=== PATIENT | male | born 1995 | race Caucasian/White ===

== ENCOUNTER 2016-11-23 19:43 | Emergency (ER) | payer OTHER ==
[2016-11-23 20:06] VITALS: BP 126/75
[2016-11-23] MEDS ORDERED: NS 0.9% 1000 ML* 1,000 ML IV ONE (21:20)
[2016-11-23] MEDS ORDERED: Ketorolac INJ* 30 MG/ML 1 ML VIAL IV PUSH ONE (21:20)
[2016-11-23] MEDS ORDERED: diPHENhydraMINE IV* 50 MG/ML 1 ml VIAL (BENADRYL) IV ONE (21:20)
[2016-11-23] MEDS ORDERED: Ondansetron INJ* 2 MG/ML VIAL IV ONE (21:21)
[2016-11-23 22:04] LABS: Hematocrit 48 % (42-52); Hemoglobin 16.1 g/dl (14.0-18.0); Mean Corpuscular HGB Conc 34 g/dl (31-36); Mean Corpuscular Hemoglobin 29 pg (27-31); Mean Corpuscular Volume 86 fL (80-94); Mean Platelet Volume 9 um3 (7.4-10.4); Red Blood Count 5.59 10^6/ul (4.0-5.4); Red Cell Distribution Width 14 % (10.5-15); White Blood Count 9.4 10^3/ul (3.5-10.8)
[2016-11-23 22:23] LABS: Albumin 5.1 g/dL (3.2-5.2); BUN/Creatinine Ratio 6.4 (8-20); Calcium 10.1 mg/dL (8.6-10.3); EGFR African American 129.1 (>60); EGFR Non-African American 100.4 (>60); Globulin 2.8 g/dL (2-4); Potassium 3.8 mmol/L (3.5-5.0); Total Bilirubin 0.5 mg/dL (0.2-1.0); Total Protein 7.9 g/dL (6.4-8.9)
--- NOTE | 2016-11-23 23:35 | UC ---
Headache HPI - HPI Summary HPI Summary: SINCE 1800 HAS HAD WORSENING MIGRAIN HEADACHE WITH PHOTOPHOBIA, SOUND SENSITIVITY AND NAUSEA. THIS IS TYPICAL OF HIS MIGRAINES. TOOK IBUPROFEN PRIOR TO SEVERITY (AT 5:30PM) BUT IT HAS NOT HELPED. MIGRAINES LATELY ARE BECOMING MORE FREQUENT. HAS NOT SPOKEN TO PRIMARY CARE OR TO NEUROLOGIST (EVERETT) ABOUT MIGRAINE OR FREQUENCY. USED TO TAKE MEDICATION THAT WAS EFFECTIVE IN CONTROLLING MIGRAINES, BUT HAS BEEN YEARS SINCE ANY MEDICATION WAS PRESCRIBED AND MANAGED. - History Of Current Complaint Chief Complaint: EDHeadache Stated Complaint: HEAD PAIN Time Seen by Provider: 11/23/16 21:03 Hx Obtained From: Patient, Family/Hogshead Builder Onset/Duration: Gradual Onset, Lasting Hours, Still Present Onset Of Symptoms: Gradual Initially Headache Was: Moderate Currently Pain Is: Moderate Pain Intensity: 1 Pain Scale Used: 0-10 Numeric Timing: Constant Character: Dull, Typical Headache Location of Headache: Frontal, Occipital Aggravating Factor: Bright Lights Allevating Factors: Position Change Associated Signs And Symptoms: Positive: Nausea. Negative: Dizziness, Seizure, Vomiting, Sinus Pressure, Fever, Neck Pain, Neck Stiffness, Decreased LOC - Risk Factors SAH Risk Factors: Negative Meningitis Risk Factors: Negative SDH Risk Factors: Negative Temporal Arteritis Risk Factors: Negative - Allergies/Home Medications Allergies/Adverse Reactions: Allergies Allergy/AdvReac Type Severity Reaction Status Date / Time Penicillins Allergy Intermediate Rash Verified 09/30/15 10:47 Amoxicillin Allergy Unknown Unknown Verified 09/30/15 10:47 Reaction Details Oxcarbazepine AdvReac Severe SEIZURES Verified 09/30/15 10:47 [From Trileptal] PMH/Surg Hx/FS Hx/Imm Hx Endocrine History Of: Denies: Diabetes, Thyroid Disease Cardiovascular History Of: Denies: Cardiac Disorders, Hypertension Respiratory History Of: Reports: Asthma Denies: COPD GI/ History Of: Denies: Ulcer Neurological History Of: Reports: Migraine Psychological History Of: Reports: Anxiety, Depression - Surgical History Surgical History: Yes Surgery Procedure, Year, and Place: TONSILLECTOMY, TESTICLE SURGERY, WISDOM TEETH - Family History Known Family History: Positive: Cardiac Disease - Social History Occupation: Student Lives: With Family Alcohol Use: Rare Alcohol Amount: 3-4 BEERS/WK Substance Use Type: Marijuana Substance Use Comment - Amount & Last Used: OCCAS Smoking Status (MU): Heavy Every Day Tobacco Smoker Type: Cigarettes Amount Used/How Often: 4-5 CIGARETTES/DAY Length of Time of Smoking/Using Tobacco: 2YRS Have You Smoked in the Last Year: Yes Household Exposure Type: Cigarettes Cessation Counseling: Counseled 3+Min - 10 Min - Immunization History Most Recent Influenza Vaccination: FALL 2013 Most Recent Tetanus Shot: [facility] Most Recent Pneumonia Vaccination: NONE Review of Systems Constitutional: Negative Skin: Negative Eyes: Photophobia ENT: Negative Respiratory: Negative Cardiovascular: Negative Gastrointestinal: Negative Genitourinary: Negative Motor: Negative Neurovascular: Negative Musculoskeletal: Negative Neurological: Headache Psychological: Negative All Other Systems Reviewed And Are Negative: Yes Physical Exam Triage Information Reviewed: Yes Appearance: Well-Appearing, Well-Nourished, Pain Distress - MODERATE, Thin Vital Signs: Initial Vital Signs Temp 98.6 F 11/23/16 20:02 Pulse 87 11/23/16 20:02 Resp 18 11/23/16 20:02 BP 126/75 11/23/16 20:02 Pulse Ox 95 11/23/16 20:02 Vital Signs Reviewed: Yes Eye Exam: Normal Eyes: Positive: Conjunctiva Clear ENT Exam: Normal ENT: Positive: Normal ENT inspection, Hearing grossly normal, Pharynx normal, TMs normal Dental Exam: Normal Dental: Negative: Cervical Lymphadenopathy Neck exam: Normal Neck: Positive: Supple, Nontender, No Lymphadenopathy. Negative: Nuchal Rigidity, Tenderness @, Enlarged Nodes @ Respiratory Exam: Normal Respiratory: Positive: Chest non-tender, Lungs clear, Normal breath sounds, No respiratory distress, No accessory muscle use Cardiovascular Exam: Normal Cardiovascular: Positive: RRR, No Murmur, Pulses Normal, Brisk Capillary Refill Abdominal Exam: Normal Abdomen Description: Positive: Nontender, No Organomegaly Musculoskeletal Exam: Normal Musculoskeletal: Positive: Strength Intact, ROM Intact Neurological Exam: Normal Neurological: Positive: Alert, Muscle Tone Normal, Other: - CN 2-12 INTACT Psychological Exam: Normal Psychological: Positive: Normal Response To Family Skin Exam: Normal Re-Evaluation - Re-Evaluation Second Eval Re-Evaluation Time: 22:25 Change: Improved - SYMPTOM FREE AFTER THERAPY; PENDING REMAINING FLUIDS. Headache Course/Dx - Differential Dx/Diagnosis Differential Diagnosis/HQI/PQRI: CO2 Poisoning, Migraine, Sinus Headache, Tension Headache Provider Diagnoses: MIGRAINE. TOBACCO ABUSE Discharge - Discharge Plan Condition: Stable Disposition: HOME Prescriptions: Ketorolac TAB (NF) [Toradol TAB (NF)] 10 mg PO Q8HR #15 tab Patient Education Materials: Migraine Headache (ED) Referrals: Chente Aguilar MD [Medical Doctor] - Georgia Sam MD [Primary Care Provider] -
== END 2016-11-23 23:06 | disposition home or self-care (01) ==
LOC: ED 19:43
DX: G43.909 Migraine, unspecified, not intractable, without status migrainosus (principal); R51 Headache; H53.149 Visual discomfort, unspecified; R11.0 Nausea; Z88.0 Allergy status to penicillin; F17.210 Nicotine dependence, cigarettes, uncomplicated
CPT/HCPCS: 36415; 80053; 85025; 85610; 85730; 96374; 96375; 99282; J1200; J1885; J2405

== ENCOUNTER → 2017-04-04 18:59 | Emergency (ER) | payer OTHER ==
--- NOTE | 2017-04-04 20:49 | RAD ---
Indication: Head injury. CT of the brain was performed without IV contrast. Comparison is made with previous exam dated May 11, 2009. Ventricular structures are midline. No midline shift is noted. The extra-axial spaces are unremarkable. There is no evidence of intracranial mass or hemorrhage. No other high or low density lesions identified. Mastoid air cells and paranasal sinuses are clear. IMPRESSION: No intracranial mass or hemorrhage is noted.
[2017-04-04 20:55] LABS: Hematocrit 44 % (42-52); Mean Corpuscular HGB Conc 34 g/dl (31-36); Mean Corpuscular Hemoglobin 29 pg (27-31); Mean Corpuscular Volume 85 fL (80-94); Mean Platelet Volume 8 um3 (7.4-10.4); Red Blood Count 5.11 10^6/ul (4.0-5.4); Red Cell Distribution Width 13 % (10.5-15); White Blood Count 9.4 10^3/ul (3.5-10.8)
[2017-04-04 21:09] LABS: ALT 16 U/L (7-52); AST 24 U/L (13-39); Albumin 4.7 g/dL (3.2-5.2); Alkaline Phosphatase 71 U/L (34-104); Anion Gap 3 mmol/L (2-11); BUN/Creatinine Ratio 8.2 (8-20); Blood Urea Nitrogen 9 mg/dL (6-24); CO2 Carbon Dioxide 27 mmol/L (22-32); Calcium 9.8 mg/dL (8.6-10.3); Chloride 103 mmol/L (101-111); EGFR African American 107.6 (>60); EGFR Non-African American 83.7 (>60); Globulin 2.7 g/dL (2-4); Glucose 87 mg/dL (70-100); Potassium 3.9 mmol/L (3.5-5.0); Sodium 133 mmol/L (133-145); Total Protein 7.4 g/dL (6.4-8.9)
[2017-04-04 21:14] LABS: Urine Bilirubin Negative (Negative); Urine Glucose Negative (Negative); Urine Nitrite Negative (Negative)
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
[2017-04-04 21:27] LABS: Benzodiazepine Urine Screen None Detected (None Detect)
[2017-04-04 21:37] LABS: Acetaminophen < 15 mcg/mL; Alcohol < 10 mg/dL (<10); Salicylate < 2.50 mg/dL (<30)
[2017-04-04 21:47] LABS: TSH (Thyroid Stimulating Horm) 1.85 mcIU/mL (0.34-5.60)
[2017-04-04 21:56] VITALS: BP 128/68
== END | disposition home or self-care (01) ==
LOC: ED 18:59
DX: F44.5 Conversion disorder with seizures or convulsions (principal)
CPT/HCPCS: 36415; 70450; 80053; 80307; 80320; 80329; 81003; 84443; 85025; 99282; G0480

== ENCOUNTER 2017-04-22 17:18 | Inpatient (IN) | payer MEDICAID, OTHER ==
[2017-04-22 17:46] LABS: Hematocrit 45 % (42-52); Hemoglobin 14.8 g/dl (14.0-18.0); Mean Corpuscular HGB Conc 33 g/dl (31-36); Mean Corpuscular Hemoglobin 29 pg (27-31); Mean Corpuscular Volume 87 fL (80-94); Mean Platelet Volume 8 um3 (7.4-10.4); Red Blood Count 5.18 10^6/ul (4.0-5.4); Red Cell Distribution Width 14 % (10.5-15); White Blood Count 8.1 10^3/ul (3.5-10.8)
[2017-04-22 18:04] LABS: ALT 44 U/L (7-52); AST 90 U/L (13-39); Albumin 4.9 g/dL (3.2-5.2); Alkaline Phosphatase 54 U/L (34-104); Anion Gap 10 mmol/L (2-11); BUN/Creatinine Ratio 6.7 (8-20); Blood Urea Nitrogen 6 mg/dL (6-24); CO2 Carbon Dioxide 22 mmol/L (22-32); Calcium 9.7 mg/dL (8.6-10.3); Chloride 104 mmol/L (101-111); EGFR African American 135.7 (>60); EGFR Non-African American 105.5 (>60); Globulin 2.7 g/dL (2-4); Glucose 110 mg/dL (70-100); Potassium 3.9 mmol/L (3.5-5.0); Sodium 136 mmol/L (133-145); Total Protein 7.6 g/dL (6.4-8.9)
[2017-04-22 18:20] LABS: Urine Bilirubin Negative (Negative); Urine Glucose Negative (Negative); Urine Nitrite Negative (Negative)
[2017-04-22 18:28] LABS: TSH (Thyroid Stimulating Horm) 1.21 mcIU/mL (0.34-5.60)
[2017-04-22 18:32] LABS: Acetaminophen < 15 mcg/mL; Alcohol < 10 mg/dL (<10); Salicylate < 2.50 mg/dL (<30)
[2017-04-22 18:41] LABS: Benzodiazepine Urine Screen None Detected (None Detect)
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
[2017-04-22] MEDS ORDERED: Ibuprofen TAB* 600 MG PO ONE (21:23)
[2017-04-23] MEDS ORDERED: Nicotine GUM* 2 MG PO PRN (01:12)
[2017-04-23] MEDS ORDERED: Al Hydrox/Mg Hydrox/Simet LIQ* 30 ML UDC PO PRN (01:12)
[2017-04-23] MEDS ORDERED: Acetaminophen TAB* 325 MG PO PRN (01:12)
[2017-04-23] MEDS: Mouth Piece, Nicotine* 1 EACH CARTRIDGE INH ONE ×2 (07:55→10:45)
[2017-04-23] MEDS: Triamcinolone 0.025% OINT * 15 GM TUBE TOPICAL SCH ×2 (08:09→20:07)
[2017-04-23] MEDS: Vitamin THERAPEUTIC TAB PO SCH (08:10)
[2017-04-23] MEDS ORDERED: busPIRone TAB* 15 MG PO SCH (09:00)
[2017-04-23] MEDS ORDERED: Vitamin B Complex TAB PO SCH (09:00)
[2017-04-23] MEDS: Hydrocortisone 1% CREAM* 30 GM TUBE TOPICAL SCH ×2 (09:32→20:07)
[2017-04-23] MEDS ORDERED: Mouth Piece, Nicotine* 1 EACH CARTRIDGE ONE (10:45)
[2017-04-23] MEDS: Nicotine Inhaler* 10 MG AMP INH PRN ×3 (10:45→20:09)
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
[2017-04-23] MEDS: busPIRone TAB* 15 MG PO SCH (20:07)
[2017-04-23] MEDS: Vitamin B Complex TAB PO SCH (20:07)
[2017-04-23] MEDS: hydrOXYzine HCL TAB* 25 MG PO PRN (21:13)
[2017-04-24] MEDS: Vitamin B Complex TAB PO SCH ×2 (08:46→20:46)
[2017-04-24] MEDS: Hydrocortisone 1% CREAM* 30 GM TUBE TOPICAL SCH ×2 (08:47→20:48)
[2017-04-24] MEDS: Triamcinolone 0.025% OINT * 15 GM TUBE TOPICAL SCH ×2 (08:47→20:48)
[2017-04-24] MEDS: Vitamin THERAPEUTIC TAB PO SCH (08:47)
[2017-04-24] MEDS: busPIRone TAB* 15 MG PO SCH ×2 (08:47→20:46)
[2017-04-24] MEDS: Nicotine Inhaler* 10 MG AMP INH PRN ×4 (08:48→20:47)
[2017-04-24] MEDS: hydrOXYzine HCL TAB* 25 MG PO PRN (21:24)
[2017-04-25] MEDS: Vitamin THERAPEUTIC TAB PO SCH (08:17)
[2017-04-25] MEDS: busPIRone TAB* 15 MG PO SCH ×2 (08:17→21:12)
[2017-04-25] MEDS: Vitamin B Complex TAB PO SCH ×2 (08:17→21:12)
[2017-04-25] MEDS: Triamcinolone 0.025% OINT * 15 GM TUBE TOPICAL SCH ×2 (08:19→21:13)
[2017-04-25] MEDS: Hydrocortisone 1% CREAM* 30 GM TUBE TOPICAL SCH ×2 (08:19→21:13)
[2017-04-25] MEDS: Nicotine Inhaler* 10 MG AMP INH PRN ×4 (11:34→21:57)
--- NOTE | 2017-04-25 11:47 | PN ---
Subjective - Subjective Service Type: 26336 Hosp care 15 min low complexity Subjective: I reviewed H&P and notes since Wednesday afternoon. I am familiar with this pt from previous hospitalization. Staff notes indicate he has been socializing with peers. Pt found in the milieu, socializing with another pt. We briefly discussed events leading to hospitalization. Mood is "okay" and rates depression as 4-5/ 10 and anxiety as 5-6/10 (10 being the worst). Notes self-harming by head banging in bathroom on Wednesday after upsetting phone call. Reports reduced hypersomnia, but is vague withe details. Daytime energy remains low. Glad to be taking a break from methylphenidate. No changes in appetite, diet. Denies any physical complaints or medication side effects. Hasn't noticed any mood changes after recent med change. Reports having fleeting passive suicidal thoughts yesterday. Denies any suicidal thoughts today. Denies any self-harm since Wednesday. He expressed relief about being out of recent relationship. Objective - Appearance Appearance: Well Developed/Nourished, Other - multiple facial piercings Dysmorphic Features: No Grooming: Fairly Well Kept - Behavior Psychomotor Activities: Normal Exhibits Abnormal Movement: No - Attitude and Relatedness Attitude and Relatedness: Cooperative Eye Contact: Good - Speech Quality: Unpressured Latencies: Normal Quantity: Appropriate - Mood Patient's Decription of Mood: "Okay" - Affect Observed Affect: Fair Affect Consistent with: Dysphoria - blunted - Thought Process Patient's Thought Process: Coherent, Goal Directed Thought Content: No Passive Wish, No Suicidal Planning, No Homicidal Ideation, No Paranoid Ideation - Sensorium Experiencing Hallucinations: No, Sensorium is Clear - Level of Consciousness Level of Consciousness: Lethargic - mild Orientation: Yes Intact, Yes Orientated to Time, Yes Orientated to Place, Yes Orientated to Person - Impulse Control Impulse Control: Tenuous - Insight and Judgement Insight and Judgement: Fair Assessment - Assessment Merits Inpatient Hospitalization: For Stabilization, For Ongoing Evaluation, Consolidate Improvements, For Discharge Planning, Pending Safe DC Plan Inpatient DSM-IV Dx: Depression Unspecified Clinical Impression: 21yo male with a hx of depression, abuse, substance use, idiopathic hypersomnolence and past psychiatric hospitalization admitted after attempting suicide. Tolerating med changes. Plan - Plan Treatment Plan: Name: KAYLIN BARRERA Birthdate: 1995 [id number] - continue higher dose of buspirone. - continue hyrdoxyzine prn - continie vitamin supplementation - continue to hold stimulant Medications: Current Medications Acetaminophen (Tylenol Tab*) 650 mg PO Q4H PRN PRN Reason: PAIN or TEMP > 101 F Al Hydrox/Mg Hydrox/Simethicone (Maalox Plus*) 30 ml PO Q4H PRN PRN Reason: INDIGESTION Buspirone HCl (Buspar Tab *) 15 mg PO BID [facility] Last Admin: 04/25/17 08:17 Dose: 15 mg Cetirizine HCl (Zyrtec*) 10 mg PO DAILY PRN PRN Reason: ALLERGIES Hydrocortisone (Hytone Cream 1%*) 1 applic TOPICAL BID [facility] Last Admin: 04/25/17 08:19 Dose: Not Given Hydroxyzine HCl (Atarax Tab*) 25 mg PO Q6H PRN PRN Reason: ANXIETY Last Admin: 04/24/17 21:24 Dose: 25 mg Multivitamins (Theragran Tab*) 1 tab PO DAILY [facility] Last Admin: 04/25/17 08:17 Dose: 1 tab Nicotine (Nicotine Inhaler*) 10 mg INH Q2H PRN PRN Reason: CRAVING Last Admin: 04/25/17 11:34 Dose: 10 mg Nicotine Polacrilex (Nicotine Gum*) 2 mg PO Q2H PRN PRN Reason: CRAVING Triamcinolone Acetonide (Triamcinolone 0.025% Oint *) 1 applic TOPICAL BID [facility] Last Admin: 04/25/17 08:19 Dose: Not Given Vitamin B Complex/Vitamin E (Complex B-100*) 1 tab PO BID [facility] Last Admin: 04/25/17 08:17 Dose: 1 tab
[2017-04-25] MEDS: hydrOXYzine HCL TAB* 25 MG PO PRN (18:30)
[2017-04-25] MEDS: Cetirizine* 10 MG TAB PO PRN (23:05)
[2017-04-26] MEDS: Hydrocortisone 1% CREAM* 30 GM TUBE TOPICAL SCH ×2 (09:39→20:48)
[2017-04-26] MEDS: Vitamin THERAPEUTIC TAB PO SCH (09:39)
[2017-04-26] MEDS: Vitamin B Complex TAB PO SCH ×2 (09:39→16:59)
[2017-04-26] MEDS: Triamcinolone 0.025% OINT * 15 GM TUBE TOPICAL SCH ×3 (09:39→21:09)
[2017-04-26] MEDS: busPIRone TAB* 15 MG PO SCH ×2 (09:39→20:46)
[2017-04-26] MEDS: Nicotine Inhaler* 10 MG AMP INH PRN ×5 (12:12→23:40)
--- NOTE | 2017-04-26 14:02 | PN ---
[facility]: Group Therapy Note - Service Type Service Type: 30614 Group Psychotherapy - Cognitive Behavioral Group Therapy ( CBT):Patient was attentive and participatory in CBT programming this morning, and remained in good behavioral control. Patient expressed positive insights regarding relevant treatment interventions and goals.
[2017-04-26] MEDS: buPROPion TAB* 100 MG PO SCH (16:18)
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
[2017-04-26] MEDS ORDERED: buPROPion TAB* 100 MG PO SCH (21:00)
[2017-04-26] MEDS: Cetirizine* 10 MG TAB PO PRN (21:09)
[2017-04-26] MEDS: hydrOXYzine HCL TAB* 25 MG PO PRN (21:09)
[2017-04-27] MEDS: Cetirizine* 10 MG TAB PO PRN (08:32)
[2017-04-27] MEDS: Vitamin B Complex TAB PO SCH ×2 (08:32→17:17)
[2017-04-27] MEDS: Vitamin THERAPEUTIC TAB PO SCH (08:32)
[2017-04-27] MEDS: Nicotine Inhaler* 10 MG AMP INH PRN ×5 (08:32→21:00)
[2017-04-27] MEDS: busPIRone TAB* 15 MG PO SCH ×2 (08:32→20:59)
[2017-04-27] MEDS: buPROPion TAB* 100 MG PO SCH ×2 (08:33→15:43)
[2017-04-27] MEDS: Hydrocortisone 1% CREAM* 30 GM TUBE TOPICAL SCH ×2 (09:47→20:59)
[2017-04-27] MEDS: Triamcinolone 0.025% OINT * 15 GM TUBE TOPICAL SCH ×2 (09:47→21:00)
--- NOTE | 2017-04-27 13:31 | PN ---
Subjective - Subjective Service Type: 55986 Hosp care 15 min low complexity Subjective: Patient reports continued improvement in mood. He reports ongoing benefit from group and expresses motivation to use coping mechanisms he's learned once back home. He reports being home alone is a stress, especially at night. He reports no drop in mood yesterday, but reports the of his BF did call but he declined the call. He is more aware of the chaotic lifestyle of his friends and ex-GF. He reports insight that he needs to distance himself from them. He reports med compliance and no med s/e's. He reports increased sleep, but attributes it to his fluctuating Idiopathic Hypersomnolence dx. He denies SI/HI and AH/VH. Objective - Appearance Appearance: Thin Framed Dysmorphic Features: No Hygiene: Normal Grooming: Fairly Well Kept - Behavior Psychomotor Activities: Normal Exhibits Abnormal Movement: No - Attitude and Relatedness Attitude and Relatedness: Cooperative - Speech Quality: Unpressured Latencies: Normal Quantity: Appropriate - Mood Patient's Decription of Mood: "Fine" - Affect Observed Affect: Fair Affect Consistent with: Euthymia - Thought Process Patient's Thought Process: Coherent Thought Content: No Passive Wish, No Suicidal Planning, No Homicidal Ideation, No Paranoid Ideation - Sensorium Experiencing Hallucinations: No, Sensorium is Clear Type of Hallucinations: Visual: No, Auditory: No, Command: No - Level of Consciousness Level of Consciousness: Alert Orientation: Yes Intact, Yes Orientated to Time, Yes Orientated to Place, Yes Orientated to Person - Impulse Control Impulse Control: Intact - Insight and Judgement Insight and Judgement: Fair - Group Participation Particating in Group Activities: Yes - Medication Management Medication Management Adherence: Yes Assessment - Assessment Merits Inpatient Hospitalization: For Stabilization Inpatient DSM-IV Dx: 1. Unspecified depressive disorder. 2. Borderline PD. 3. ADHD. 4. Amphetamine use d/o. 5. Cannabis use d/o Clinical Impression: 21yo male patient with PPHx significant for Depression presents s/p suicide attempt by OD on 3-4 MH pills. He reports recent distress from the breakup of the 2 year relationship with his GF. He also has lost a good friend due to his GF. Patient reports good benefit from groups and reported he'd like to discuss the borderline personality as he identified with many of the behaviors. Patient has been med compliant and denies med s/e' s. He is amenable to a trial on bupropion due to his fears of his mood dropping associated with impulsive SI which happened the night of this admission. Plan - Plan Treatment Plan: Name: KAYLIN BARRERA Birthdate: 1995 [id number] 1. Continue admission to [facility] for safety and symptom mx. 2. Continue Buspar 15mg BID for anxiety and mood. 3. Continue Wellbutrin 150mg po BID(0800&1600) for depression. 4. Vistaril 25mg po q6hr for breakthrough anxiety. 5. Continue Vit B complex ta BID per patient report is his Tx for above mentioned genetic issue. 6. Patient to participate in milieu activities and groups. Continued Medication Management: Different Medication Medications: Current Medications Acetaminophen (Tylenol Tab*) 650 mg PO Q4H PRN PRN Reason: PAIN or TEMP > 101 F Al Hydrox/Mg Hydrox/Simethicone (Maalox Plus*) 30 ml PO Q4H PRN PRN Reason: INDIGESTION Bupropion HCl (Wellbutrin Tab*) 150 mg PO 0800,1600 [facility] Last Admin: 04/27/17 08:33 Dose: 150 mg Buspirone HCl (Buspar Tab *) 15 mg PO BID [facility] Last Admin: 04/27/17 08:32 Dose: 15 mg Cetirizine HCl (Zyrtec*) 10 mg PO DAILY PRN PRN Reason: ALLERGIES Last Admin: 04/27/17 08:32 Dose: 10 mg Hydrocortisone (Hytone Cream 1%*) 1 applic TOPICAL BID [facility] Last Admin: 04/27/17 09:47 Dose: Not Given Hydroxyzine HCl (Atarax Tab*) 25 mg PO Q6H PRN PRN Reason: ANXIETY Last Admin: 04/26/17 21:09 Dose: 25 mg Multivitamins (Theragran Tab*) 1 tab PO DAILY [facility] Last Admin: 04/27/17 08:32 Dose: 1 tab Nicotine (Nicotine Inhaler*) 10 mg INH Q2H PRN PRN Reason: CRAVING Last Admin: 04/27/17 12:48 Dose: 10 mg Nicotine Polacrilex (Nicotine Gum*) 2 mg PO Q2H PRN PRN Reason: CRAVING Triamcinolone Acetonide (Triamcinolone 0.025% Oint *) 1 applic TOPICAL BID [facility] Last Admin: 04/27/17 09:47 Dose: Not Given Vitamin B Complex/Vitamin E (Complex B-100*) 1 tab PO 0800,1700 [facility] Last Admin: 04/27/17 08:32 Dose: 1 tab - Discharge Plan Discharge Plan: Outpatient Follow Up Outpatient Program: [facility]
[2017-04-27] MEDS: hydrOXYzine HCL TAB* 25 MG PO PRN (22:56)
[2017-04-28 07:42] VITALS: BP 105/61
[2017-04-28] MEDS: buPROPion TAB* 100 MG PO SCH (09:05)
[2017-04-28] MEDS: busPIRone TAB* 15 MG PO SCH (09:06)
[2017-04-28] MEDS: Vitamin B Complex TAB PO SCH (09:06)
[2017-04-28] MEDS: Vitamin THERAPEUTIC TAB PO SCH (09:06)
[2017-04-28] MEDS: Nicotine Inhaler* 10 MG AMP INH PRN ×2 (09:07→11:15)
[2017-04-28] MEDS: Hydrocortisone 1% CREAM* 30 GM TUBE TOPICAL SCH (10:10)
[2017-04-28] MEDS: Triamcinolone 0.025% OINT * 15 GM TUBE TOPICAL SCH (10:10)
--- NOTE | 2017-04-28 10:20 | DS ---
Subjective - Subjective Service Types: 22035 [facility] Day Mgmt simple under 30 min Subjective: Patient is full in affect, smiling at times, reporting having a good experience this admission. He reports gaining insight on his personality and the personality of his ex-GF. He sees borderline traits in he and his GF. He reports gaining new coping skills and means to navigate how he relates to his friends. He reports no med s/e's and does feel benfit to his mood and energy level with the Wellbutrin BID dosing. Patient again denies SI/HI. He is future oriented, reporting he must go DSS to submit paperwork to ensure he will not lose section 8. Patient asked to present to his local ED if SI recurs. She was amenable and acknowledged understanding of community supports. Objective - Appearance Appearance: Well Developed/Nourished Dysmorphic Features: No Hygiene: Normal Grooming: Fairly Well Kept - Behavior Psychomotor Activities: Normal Exhibits Abnormal Movement: No - Attitude and Relatedness Attitude and Relatedness: Cooperative Eye Contact: Good - Speech Quality: Unpressured Latencies: Normal Quantity: Appropriate - Mood Patient's Decription of Mood: "Good" - Affect Observed Affect: Good Affect Consistent with: Euthymia - Thought Process Patient's Thought Process: Coherent Thought Content: No Passive Wish, No Suicidal Planning, No Homicidal Ideation, No Paranoid Ideation - Sensorium Experiencing Hallucinations: No, Sensorium is Clear Type of Hallucinations: Visual: No, Auditory: No, Command: No - Level of Consciousness Level of Consciousness: Alert Orientation: Yes Intact, Yes Orientated to Time, Yes Orientated to Place, Yes Orientated to Person - Impulse Control Impulse Control: Intact - Insight and Judgement Insight and Judgement: Fair - Group Participation Particating in Group Activities: Yes - Medication Management Medication Management Adherence: Yes Treatment Course & Assessment Clinical Course & Impression: HOSPITAL COURSE: 21yo male patient with PPHx significant for Depression presented s/p suicide attempt by OD on 3-4 MH pills. He reports recent distress from the breakup of the 2 year relationship with his GF. He also has lost a good friend due to his GF. Patient also reported recent abuse of his Ritalin Rx which he has for Idiopathic hypersomnolence. He reports use of more than is prescribed and recently crushing and snorting them. On admission, Ritalin is held. Patient reports hx of poor response to antidepressants but is amenable to med modification. His only antidepressant home med is Buspar which is increased on admission from 7.5mg BID to 15mg po BID. Patient reports noting a drop in his mood as the day goes, and an intense drop when its nighttime and he is alone. Patient was amenable to start Wellbutrin 150mg po BID for depressive symptoms. He responded well in mood and energy level. Patient reports good benefit from groups and reported increased insight into his personality d/ o and managing it. Patient reported no s/e's. On day of discharge reported improved mood and was future oriented in conversation. He again denied SI/HI. He was discharge to [facility] to handle section 8 paperwork, then he is returning to his apt. PERTINENT LABS: Laboratory Tests 04/22/17 04/22/17 04/22/17 17:35 17:35 18:10 WBC 8.1 RBC 5.18 Hgb 14.8 Hct 45 MCV 87 MCH 29 MCHC 33 RDW 14 Plt Count 318 MPV 8 Neut % (Auto) 60.7 Lymph % (Auto) 28.0 [place] % (Auto) 10.6 H Eos % (Auto) 0.5 Baso % (Auto) 0.2 Absolute Neuts (auto) 4.9 Absolute Lymphs (auto) 2.3 Absolute Monos (auto) 0.9 H Absolute Eos (auto) 0 Absolute Basos (auto) 0 Absolute Nucleated RBC 0.01 Nucleated RBC % 0.1 Sodium 136 Potassium 3.9 Chloride 104 Carbon Dioxide 22 Anion Gap 10 BUN 6 Creatinine 0.90 Est GFR ( Amer) 135.7 Est GFR (Non-Af Amer) 105.5 BUN/Creatinine Ratio 6.7 L Glucose 110 H Calcium 9.7 Total Bilirubin 1.00 AST 90 H ALT 44 Alkaline Phosphatase 54 Total Protein 7.6 Albumin 4.9 Globulin 2.7 Albumin/Globulin Ratio 1.8 TSH 1.21 Urine Color Yellow Urine Appearance Clear Urine pH 6.0 Ur Specific [place] 1.008 L Urine Protein Negative Urine Ketones 1+ H Urine Blood Negative Urine Nitrate Negative Urine Bilirubin Negative Urine Urobilinogen Negative Ur Leukocyte Esterase Negative Urine Glucose Negative Salicylates < 2.50 Urine Opiates Screen Acetaminophen < 15 Ur Barbiturates Screen Ur Phencyclidine Scrn Ur Amphetamines Screen U Benzodiazepines Scrn Urine Cocaine Screen U Cannabinoids Screen Serum Alcohol < 10 04/22/17 18:10 WBC RBC Hgb Hct MCV MCH MCHC RDW Plt Count MPV Neut % (Auto) Lymph % (Auto) [place] % (Auto) Eos % (Auto) Baso % (Auto) Absolute Neuts (auto) Absolute Lymphs (auto) Absolute Monos (auto) Absolute Eos (auto) Absolute Basos (auto) Absolute Nucleated RBC Nucleated RBC % Sodium Potassium Chloride Carbon Dioxide Anion Gap BUN Creatinine Est GFR ( Amer) Est GFR (Non-Af Amer) BUN/Creatinine Ratio Glucose Calcium Total Bilirubin AST ALT Alkaline Phosphatase Total Protein Albumin Globulin Albumin/Globulin Ratio TSH Urine Color Urine Appearance Urine pH Ur Specific [place] Urine Protein Urine Ketones Urine Blood Urine Nitrate Urine Bilirubin Urine Urobilinogen Ur Leukocyte Esterase Urine Glucose Salicylates Urine Opiates Screen None detected Acetaminophen Ur Barbiturates Screen None detected Ur Phencyclidine Scrn None detected Ur Amphetamines Screen None detected U Benzodiazepines Scrn None detected Urine Cocaine Screen None detected U Cannabinoids Screen Presumptive positive H Serum Alcohol Discharge Meds: Medication Instructions Recorded Confirmed Type Acetaminophen TAB* [Tylenol TAB*] 650 mg PO Q4H PRN #0 tab 08/11/16 04/22/17 Rx LevoCETirizine TAB (NF) [Xyzal TAB 5 mg PO DAILY 04/22/17 04/22/17 History (NF)] Methylphenidate TAB* [Ritalin TAB*] 20 mg PO BID MDD 40 mg 04/22/17 04/22/17 History Hydrocortisone 1% CREAM* [Hytone 1 applic TOPICAL BID tube 04/28/17 Rx Cream 1%*] Triamcinolone 0.025% OINT * 1 applic TOPICAL BID gm 04/28/17 Rx Vitamin B Complex TAB* [Complex 1 tab PO 0800,1700 #30 tab 04/28/17 Rx B-100*] Vitamin THERAPEUTIC TAB* 1 tab PO DAILY #15 tab 04/28/17 Rx [Theragran TAB*] buPROPion TAB* [Wellbutrin TAB*] 150 mg PO 0800,1600 #30 tab 04/28/17 Rx busPIRone TAB* [Buspar TAB *] 15 mg PO BID #30 tab 04/28/17 Rx hydrOXYzine HCL TAB* [Atarax 25 MG 25 mg PO Q12HR PRN #20 tab 04/28/17 Rx TAB*] Consultants: none Follow-Up: Appts for within the next 2 weeks scheduled by for PCP and [facility](psychiatry and counseling). Clear for Discharge: Adequate Clinical Respons, Acceptable Safety Profile Inpatient DSM-IV Dx: 1. Unspecified depressive disorder. 2. Borderline PD. 3. ADHD. 4. Amphetamine use d/o. 5. Cannabis use d/o Discharge Planning - Discharge Planning Discharge Plan: Outpatient Follow Up Outpatient Program: [facility] Recommendations for Continuing Care: Psychotherapy Medications: Current Medications Acetaminophen (Tylenol Tab*) 650 mg PO Q4H PRN PRN Reason: PAIN or TEMP > 101 F Al Hydrox/Mg Hydrox/Simethicone (Maalox Plus*) 30 ml PO Q4H PRN PRN Reason: INDIGESTION Bupropion HCl (Wellbutrin Tab*) 150 mg PO 0800,1600 [facility] Last Admin: 04/28/17 09:05 Dose: 150 mg Buspirone HCl (Buspar Tab *) 15 mg PO BID [facility] Last Admin: 04/28/17 09:06 Dose: 15 mg Cetirizine HCl (Zyrtec*) 10 mg PO DAILY PRN PRN Reason: ALLERGIES Last Admin: 04/27/17 08:32 Dose: 10 mg Hydrocortisone (Hytone Cream 1%*) 1 applic TOPICAL BID [facility] Last Admin: 04/28/17 10:10 Dose: Not Given Hydroxyzine HCl (Atarax Tab*) 25 mg PO Q6H PRN PRN Reason: ANXIETY Last Admin: 04/27/17 22:56 Dose: 25 mg Multivitamins (Theragran Tab*) 1 tab PO DAILY [facility] Last Admin: 04/28/17 09:06 Dose: 1 tab Nicotine (Nicotine Inhaler*) 10 mg INH Q2H PRN PRN Reason: CRAVING Last Admin: 04/28/17 09:07 Dose: 10 mg Nicotine Polacrilex (Nicotine Gum*) 2 mg PO Q2H PRN PRN Reason: CRAVING Triamcinolone Acetonide (Triamcinolone 0.025% Oint *) 1 applic TOPICAL BID [facility] Last Admin: 04/28/17 10:10 Dose: Not Given Vitamin B Complex/Vitamin E (Complex B-100*) 1 tab PO 0800,1700 [facility] Last Admin: 04/28/17 09:06 Dose: 1 tab Discharge Planning: Prescriptions provided for discharge [x] Yes [] No Follow up care details as per social work arrangements. Patient response to discharge plan: [] eager for discharge [x] agreeable with discharge plan [] ambivalent about discharge [] disagrees with discharge today
== END 2017-04-28 11:15 | disposition home or self-care (01) | DRG 754 ==
LOC: ED 17:18 → BSU 04-23 01:40
PROVIDERS: ADMIT Psychiatry & Neurology Psychiatry; ATTEND Psychiatry & Neurology Psychiatry
DX: F32.9 Major depressive disorder, single episode, unspecified (principal); F15.10 Other stimulant abuse, uncomplicated; F60.3 Borderline personality disorder; F90.9 Attention-deficit hyperactivity disorder, unspecified type; F12.10 Cannabis abuse, uncomplicated; G47.12 Idiopathic hypersomnia without long sleep time; Z88.1 Allergy status to other antibiotic agents; Z88.0 Allergy status to penicillin; Z88.8 Allergy status to other drugs, medicaments and biological substances; Z79.1 Long term (current) use of non-steroidal anti-inflammatories (NSAID); Z79.899 Other long term (current) drug therapy; Z81.8 Family history of other mental and behavioral disorders; Z81.1 Family history of alcohol abuse and dependence
CPT/HCPCS: 36415; 80053; 80307; 80320; 80329; 81003; 84443; 85025; 90853; 93005; 99222; 99231; 99238; A9270-GY; G0480

== ENCOUNTER 2017-06-04 07:38 | Emergency (ER) | payer MEDICAID ==
[2017-06-04] MEDS ORDERED: Ketorolac INJ* 30 MG/ML 1 ML VIAL IM ONE (08:34)
[2017-06-04] MEDS ORDERED: Erythromycin TAB* 250 MG PO ONE (08:35)
[2017-06-04 09:15] VITALS: BP 114/78
--- NOTE | 2017-06-04 21:59 | ED ---
Edenilson Cobos SooYoung, scribed for Sherry Dimas MD on 06/04/17 at 0822 . Throat Pain/Nasal Congestion - HPI Summary HPI Summary: A 21 y/o M presents to ED with c/o acute on chronic dental abscess on L lower jaw initial onset approx 3 years ago, and worsening. Pain radiates to his L buddhist, rated at 8-9 out of 10. Pt states he's been attempting to schedule dental surgery for the past few months, and has an appt for next week. Pt states having difficulty getting the surgery performed due to once being in a psychiatric facility and once due to medical transport / cab refusal. Associated sx: unable to sleep. Denies fever, facial swelling. He states he stopped taking his Clindamycin due to possible allergic reaction, and was switched to Erythromycin. Allergic to penicillin. Taking Ibuprofen and Ketoralac , which he has for his migraines. Took 800 mg ibuprofen last night at 0200, and took 3 Erythromycin in last two days. States last given narcotics a year ago. PMHx: anxiety disorder; disassociation; pseudo-sz. Pt medication includes Ritalin, Wellbutrin, Buspar, Xyzal, vitamins. PMHx: MTHFR mutation. Pt denies suicidal ideation. - History of Current Complaint Chief Complaint: EDDentalPain Time Seen by Provider: 06/04/17 08:08 Hx Obtained From: Patient Onset/Duration: Lasting Weeks, Still Present Severity: Severe - rated as 8-9 out of 10 Associated Signs And Symptoms: Positive: Negative Cough: None Related History: Smoking - Epiglottits Risk Factors Epiglottis Risk Factors: Negative - Allergies/Home Medications Allergies/Adverse Reactions: Allergies Allergy/AdvReac Type Severity Reaction Status Date / Time Penicillins Allergy Intermediate Rash Verified 04/23/17 12:24 Amoxicillin Allergy Unknown Unknown Verified 04/23/17 12:24 Reaction Details Clindamycin Allergy See Comment Verified 04/23/17 12:25 Oxcarbazepine AdvReac Severe SEIZURES Verified 04/23/17 12:24 [From Trileptal] PMH/Surg Hx/FS Hx/Imm Hx Previously Healthy: No - MTHFR mutation Endocrine/Hematology History: Denies: Hx Diabetes, Hx Thyroid Disease Cardiovascular History: Denies: Hx Hypertension Respiratory History: Reports: Hx Asthma Denies: Hx Chronic Obstructive Pulmonary Disease (COPD) GI History: Denies: Hx Irritable Bowel, Hx Ulcer Sensory History: Reports: Hx Contacts or Glasses Denies: Hx Hearing Aid Opthamlomology History: Reports: Hx Contacts or Glasses Neurological History: Reports: Hx Headaches, Hx Migraine, Other Neuro Impairments/Disorders - HX seizures/pseudoseizures, HYPERSOMNIA Psychiatric History: Reports: Hx Anxiety, Hx Depression, Hx Inpatient Treatment , Hx Community Mental Health Tx, Hx Suicide Attempt, Hx Substance Abuse, Other Psychiatric Issues/Disorders - IDIOPATHIC HYPERSOMNIA Denies: Hx Eating Disorder, Hx of Violent Episodes Against Others - Surgical History Surgery Procedure, Year, and Place: TONSILLECTOMY, TESTICLE SURGERY, WISDOM TEETH - Immunization History Date of Tetanus Vaccine: unknown Date of Influenza Vaccine: Fall 2014 Infectious Disease History: No Infectious Disease History: Reports: Hx Shingles Denies: Hx Hepatitis, Hx Human Immunodeficiency Virus (HIV), History Other Infectious Disease, Traveled Outside the [place] in Last 30 Days - Family History Known Family History: Positive: Cardiac Disease - paternal - Social History Occupation: Student Lives: Alone Alcohol Use: Occasionally Alcohol Amount: 3-4 BEERS/WK Hx Substance Use: Yes Substance Use Type: Reports: Marijuana Substance Use Comment - Amount & Last Used: OCCAS Hx Tobacco Use: Yes Smoking Status (MU): Heavy Every Day Tobacco Smoker Type: Cigarettes Amount Used/How Often: 4-5 CIGARETTES/DAY Length of Time of Smoking/Using Tobacco: 2YRS Have You Smoked in the Last Year: Yes Cessation Counseling: Patient Advised to Stop Review of Systems Negative: Fever Positive: Dental Pain, Other - neg: facial swelling Negative: Chest Pain Negative: Shortness Of Breath Negative: Abdominal Pain Negative: Rash Neurological: Negative Psychological: Normal All Other Systems Reviewed And Are Negative: Yes Physical Exam Triage Information Reviewed: Yes Vital Signs On Initial Exam: Initial Vitals Temp Pulse Resp BP Pulse Ox 97.6 F 78 16 118/70 99 06/04/17 07:42 06/04/17 07:42 06/04/17 07:42 06/04/17 07:42 06/04/17 07:42 Vital Signs Reviewed: Yes Appearance: Positive: Well-Appearing, Well-Nourished, Pain Distress Skin: Positive: Warm, Skin Color Reflects Adequate Perfusion Head/Face: Positive: Normal Head/Face Inspection Eyes: Positive: Conjunctiva Clear ENT: Positive: Normal ENT inspection Dental: Positive: Abscess @ - L lower jaw, two rear molars; absess is on 2nd molar Neck: Positive: Supple, Nontender, No Lymphadenopathy Respiratory/Lung Sounds: Positive: Clear to Auscultation, Breath Sounds Present Cardiovascular: Positive: RRR, Other - pulses normal, brisk capillary refill. Negative: Murmur Musculoskeletal: Positive: Strength/ROM Intact Neurological: Positive: Sensory/Motor Intact, Alert, Oriented to Person Place, Time, Facial Symmetry, Speech Normal Psychiatric: Positive: Normal - [place] Coma Scale Coma Scale Total: 14 Diagnostics - Vital Signs Vital Signs Temp Pulse Resp BP Pulse Ox 06/04/17 07:57 97.6 F 78 16 118/70 98 06/04/17 07:42 97.6 F 78 16 118/70 99 - Laboratory Lab Statement: Any lab studies that have been ordered have been reviewed, and results considered in the medical decision making process. EENT Course/Dx - Course Course Of Treatment: Allergies noted. Normal BP reading and no follow-up instructions required. Pt medications reviewed. I-STOP reviewed, shows no narcotics in last 6 months, ref #[id number]. Pt is a 21 y/o M presenting with acute on chronic dental abscess on L lower jaw, back two molars, initial onset approx 3 years ago, and worsening. Pain radiates to his L buddhist, rated at 8-9 out of 10. Pt has an appt for dental surgery next week. Associated sx: unable to sleep. Denies fever, facial swelling. He states he stopped taking his Clindamycin due to possible allergic reaction, and was switched to Erythromycin. Taking IBP and Ketoralac, which he has for his migraines. Took 800 mg IBP last night at 0200, and took 3 Erythromycin in last two days. States last given narcotics a year ago. PMHx: anxiety disorder; disassociation; pseudo- sz. Pt medication includes Ritalin, Wellbutrin, Buspar, Xyzal, vitamins for MTHFR mutation. Allergic to penicillin. Pt given Toradol in ED. Dedicated significant bedside time discussing need for medication compliance. Pt voiced understanding. Will D/C home with [place], erythromycin, to f/u with PCP and dental surgery as scheduled. - Differential Diagnoses Differential Diagnoses: Cellulitis, Dental Abscess, Dental Caries - Diagnoses Provider Diagnoses: Tobacco abuse disorder, Dental abscess Discharge - Discharge Plan Condition: Stable Disposition: HOME Prescriptions: Erythromycin TAB* 500 mg PO QID #40 tab HYDROcodone/ACETAMIN 5-325 MG* [[place] 5-325 TAB*] 1 tab PO Q6H PRN #12 tab MDD 4 PRN Reason: Pain Patient Education Materials: Dental Abscess (ED) Referrals: Georgia Sam MD [Primary Care Provider] - 2 Days Additional Instructions: Take the erythromycin as directed four times a day until gone. Take ibuprofen 800mg four times a day for pain, and use the hydrocodone as directed for severe pain. Keep your dental appointment. Return to the ED if any new or worsening symptoms. The documentation as recorded by the Edenilson barlow SooYoung accurately reflects the service I personally performed and the decisions made by [place] Barbara J, MD.
== END 2017-06-04 09:15 | disposition home or self-care (01) ==
LOC: ED 07:38
DX: K08.89 Other specified disorders of teeth and supporting structures (principal); F17.210 Nicotine dependence, cigarettes, uncomplicated; K04.7 Periapical abscess without sinus
CPT/HCPCS: 99282; A9270-GY; J1885

== ENCOUNTER 2017-08-06 01:30 | Emergency (ER) | payer MEDICAID, OTHER ==
[2017-08-06 02:17] LABS: Hematocrit 43 % (42-52); Mean Corpuscular HGB Conc 35 g/dl (31-36); Mean Corpuscular Hemoglobin 30 pg (27-31); Mean Corpuscular Volume 85 fL (80-94); Mean Platelet Volume 8 um3 (7.4-10.4); Red Blood Count 4.97 10^6/ul (4.0-5.4); Red Cell Distribution Width 14 % (10.5-15); White Blood Count 10.6 10^3/ul (3.5-10.8)
[2017-08-06 02:18] LABS: Add Diff/Slide Review? Slide Review Added; Comments Flag Yes
[2017-08-06 02:19] LABS: Urine Bilirubin Negative (Negative); Urine Glucose Negative (Negative); Urine Nitrite Negative (Negative)
[2017-08-06 02:32] LABS: Acetaminophen < 15 mcg/mL; Alcohol 85 mg/dL (<10); Salicylate < 2.50 mg/dL (<30)
[2017-08-06 02:34] LABS: ALT 15 U/L (7-52); AST 22 U/L (13-39); Albumin 4.8 g/dL (3.2-5.2); Alkaline Phosphatase 67 U/L (34-104); Anion Gap 20 mmol/L (2-11); BUN/Creatinine Ratio 4.9 (8-20); Blood Urea Nitrogen 5 mg/dL (6-24); C Reactive Protein < 1.00 mg/L (< 5.00); CO2 Carbon Dioxide 15 mmol/L (22-32); Calcium 9.8 mg/dL (8.6-10.3); Chloride 102 mmol/L (101-111); Creatine Kinase 234 U/L (10-223); EGFR African American 115.1 (>60); EGFR Non-African American 89.5 (>60); Globulin 2.6 g/dL (2-4); Glucose 111 mg/dL (70-100); Potassium 3.3 mmol/L (3.5-5.0); Sodium 137 mmol/L (133-145); Total Protein 7.4 g/dL (6.4-8.9)
[2017-08-06 02:37] LABS: Benzodiazepine Urine Screen None Detected (None Detect)
[2017-08-06 02:54] LABS: TSH (Thyroid Stimulating Horm) 4.29 mcIU/mL (0.34-5.60)
[2017-08-06] MEDS ORDERED: NS 0.9% 1000 ML* 1,000 ML IV ONE (03:53)
[2017-08-06] MEDS ORDERED: Potassium Chlor TAB* 20 MEQ TAB.ER PO ONE (05:17)
[2017-08-06] MEDS ORDERED: diPHENhydraMINE PO* 50 MG PO ONE (05:26)
[2017-08-06 05:44] VITALS: BP 106/64
--- NOTE | 2017-08-06 07:54 | RAD ---
HISTORY: Shortness of breath COMPARISONS: August 09, 2016 VIEWS: 2: Frontal and lateral views of the chest. FINDINGS: CARDIOMEDIASTINAL SILHOUETTE: The cardiomediastinal silhouette is normal. JANE: The jane are normal. PLEURA: The costophrenic angles are sharp. No pleural abnormalities are noted. LUNG PARENCHYMA: The lungs are clear. ABDOMEN: The upper abdomen is clear. There is no subphrenic gas. BONES AND SOFT TISSUES: No bone or soft tissue abnormalities are noted. OTHER: None. IMPRESSION: NO ACTIVE CARDIOPULMONARY DISEASE.
--- NOTE | 2017-08-06 14:37 | ED ---
Barbara Cobos Rebecca, scribed for Sherry Dimas MD on 08/06/17 at 0242 . Psychiatric Complaint - HPI Summary HPI Summary: Pt is a 22 y/o M BIBA who presents to ED with anxiety and SOB s/p EtOH use. Pt reports that tonight he had used "just tobacco" and EtOH. 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 The neighbors that were on the scene cite an increase in stress for the pt, telling EMS that the pt had a difficult week recently. EMS said that while en route, the pt reports he "had a lot of stuff going on" including a recent breakup, and issue with prescriptions and something that involved a credit collections rep. Denies SIs. Reports that he did not take more medication than usual tonight. PMHx anxiety, depression. - History Of Current Complaint Chief Complaint: EDMentalHealth Time Seen by Provider: 08/06/17 01:32 Hx Obtained From: Patient Onset/Duration: Still Present Character: Anxious Aggravating Factor(s): Recent Stress Alleviating Factor(s): Nothing Associated Signs And Symptoms: Positive: Negative Related History: Positive For: Prior Psychiatric Issues - Anxiety, depression Has Suicidal: Denies: Thoughts - Allergies/Home Medications Allergies/Adverse Reactions: Allergies Allergy/AdvReac Type Severity Reaction Status Date / Time Penicillins Allergy Intermediate Rash Verified 04/23/17 12:24 Amoxicillin Allergy Unknown Unknown Verified 04/23/17 12:24 Reaction Details Clindamycin Allergy See Comment Verified 04/23/17 12:25 Oxcarbazepine AdvReac Severe SEIZURES Verified 04/23/17 12:24 [From Trileptal] PMH/Surg Hx/FS Hx/Imm Hx Endocrine/Hematology History: Denies: Hx Diabetes, Hx Thyroid Disease Cardiovascular History: Denies: Hx Hypertension Respiratory History: Reports: Hx Asthma - MILD Denies: Hx Chronic Obstructive Pulmonary Disease (COPD) GI History: Denies: Hx Irritable Bowel, Hx Ulcer Sensory History: Reports: Hx Contacts or Glasses Denies: Hx Hearing Aid Opthamlomology History: Reports: Hx Contacts or Glasses Neurological History: Reports: Hx Headaches, Hx Migraine, Other Neuro Impairments/Disorders - HX seizures/pseudoseizures, HYPERSOMNIA Psychiatric History: Reports: Hx Anxiety, Hx Depression, Hx Inpatient Treatment , Hx Community Mental Health Tx, Hx Suicide Attempt, Hx Substance Abuse, Other Psychiatric Issues/Disorders - IDIOPATHIC HYPERSOMNIA Denies: Hx Eating Disorder, Hx of Violent Episodes Against Others - Surgical History Surgery Procedure, Year, and Place: TONSILLECTOMY, TESTICLE SURGERY, WISDOM TEETH - Immunization History Date of Tetanus Vaccine: unknown Date of Influenza Vaccine: Fall 2014 Infectious Disease History: No Infectious Disease History: Reports: Hx Shingles Denies: Hx Hepatitis, Hx Human Immunodeficiency Virus (HIV), History Other Infectious Disease, Traveled Outside the [place] in Last 30 Days - Family History Known Family History: Positive: Cardiac Disease - paternal - Social History Alcohol Use: Occasionally Alcohol Amount: 3-4 BEERS/WK Hx Substance Use: Yes Substance Use Type: Reports: Marijuana Substance Use Comment - Amount & Last Used: OCCAS Hx Tobacco Use: Yes Smoking Status (MU): Heavy Every Day Tobacco Smoker Type: Cigarettes Amount Used/How Often: 4-5 CIGARETTES/DAY Length of Time of Smoking/Using Tobacco: 2YRS Have You Smoked in the Last Year: Yes Review of Systems Positive: Shortness Of Breath, Other - Hyperventilating [employer]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 Positive: Anxious, Other - NEGATIVE: SIs All Other Systems Reviewed And Are Negative: Yes Physical Exam Triage Information Reviewed: Yes Vital Signs On Initial Exam: Initial Vitals Temp Pulse Resp BP Pulse Ox 98 F 110 18 110/68 100 08/06/17 01:46 08/06/17 01:46 08/06/17 01:46 08/06/17 01:46 08/06/17 01:46 Vital Signs Reviewed: Yes Appearance: Positive: No Pain Distress, Well-Nourished, Ill-Appearing - Mildly Skin: Positive: Warm, Skin Color Reflects Adequate Perfusion Head/Face: Positive: Normal Head/Face Inspection Eyes: Positive: Conjunctiva Clear ENT: Positive: Pharynx normal, Other - Turbinates are touching on the let side with clear rhionrrhea. The right nare is swollen but there is a clear nasal passageway. Dental: Positive: Other - The second molar on the lower left is where he points to the abscesses tooth. Ther eis no inflammatoin and no gum swelling. Neck: Positive: Supple Respiratory/Lung Sounds: Positive: Clear to Auscultation, Breath Sounds Present , Other - No respiratory distress Cardiovascular: Positive: RRR, Pulses are Symmetrical in both Upper and Lower Extremities, Other - Brisk capillary refill. Negative: Murmur Abdomen Description: Positive: Nontender, Soft Bowel Sounds: Positive: Present Musculoskeletal: Positive: Strength/ROM Intact Neurological: Positive: Sensory/Motor Intact, Alert, Oriented to Person Place, Time, Facial Symmetry, Speech Normal Psychiatric: Positive: Normal - [place] Coma Scale Coma Scale Total: 15 Diagnostics - Vital Signs Vital Signs Temp Pulse Resp BP Pulse Ox 08/06/17 02:06 85 96 08/06/17 02:05 131/54 08/06/17 01:58 78 99 08/06/17 01:57 74 99 08/06/17 01:55 105/65 08/06/17 01:46 98 F 110 18 110/68 100 - Laboratory Lab Results: Lab Results 08/06/17 08/06/17 08/06/17 Range/Units 01:40 01:40 01:40 WBC (3.5-10.8) 10^3/ul RBC (4.0-5.4) 10^6/ul Hgb (14.0-18.0) g/dl Hct (42-52) % MCV (80-94) fL MCH (27-31) pg MCHC (31-36) g/dl RDW (10.5-15) % Plt Count (150-450) 10^3/ul MPV (7.4-10.4) um3 Neut % (Auto) (38-83) % Lymph % (Auto) (25-47) % [place] % (Auto) (1-9) % Eos % (Auto) (0-6) % Baso % (Auto) (0-2) % Absolute Neuts (auto) (1.5-7.7) 10^3/ul Absolute Lymphs (auto) (1.0-4.8) 10^3/ul Absolute Monos (auto) (0-0.8) 10^3/ul Absolute Eos (auto) (0-0.6) 10^3/ul Absolute Basos (auto) (0-0.2) 10^3/ul Absolute Nucleated RBC 10^3/ul Nucleated RBC % INR (Anticoag Therapy) 1.00 (0.89-1.11) D-Dimer, Quantitative < 200 (Less Than 230) ng/mL Sodium 137 (133-145) mmol/L Potassium 3.3 L (3.5-5.0) mmol/L Chloride 102 (101-111) mmol/L Carbon Dioxide 15 L (22-32) mmol/L Anion Gap 20 H (2-11) mmol/L BUN 5 L (6-24) mg/dL Creatinine 1.03 (0.67-1.17) mg/dL Est GFR ( Amer) 115.1 (>60) Est GFR (Non-Af Amer) 89.5 (>60) BUN/Creatinine Ratio 4.9 L (8-20) Glucose 111 H (70-100) mg/dL Calcium 9.8 (8.6-10.3) mg/dL Total Bilirubin 0.50 (0.2-1.0) mg/dL AST 22 (13-39) U/L ALT 15 (7-52) U/L Alkaline Phosphatase 67 (34-104) U/L Total Creatine Kinase 234 H (10-223) U/L CK-MB (CK-2) 4.7 (0.6-6.3) ng/mL Troponin I 0.00 (<0.04) ng/mL C-Reactive Protein < 1.00 (< 5.00) mg/L B-Natriuretic Peptide 7 ( - 100) pg/mL Total Protein 7.4 (6.4-8.9) g/dL Albumin 4.8 (3.2-5.2) g/dL Globulin 2.6 (2-4) g/dL Albumin/Globulin Ratio 1.8 (1-3) TSH Pending Urine Color Urine Appearance Urine pH (5-9) Ur Specific [place] (1.010-1.030) Urine Protein (Negative) Urine Ketones (Negative) Urine Blood (Negative) Urine Nitrate (Negative) Urine Bilirubin (Negative) Urine Urobilinogen (Negative) Ur Leukocyte Esterase (Negative) Urine Glucose (Negative) Salicylates < 2.50 (<30) mg/dL Urine Opiates Screen (None Detect) Acetaminophen < 15 mcg/mL Ur Barbiturates Screen (None Detect) Ur Phencyclidine Scrn (None Detect) Ur Amphetamines Screen (None Detect) U Benzodiazepines Scrn (None Detect) Urine Cocaine Screen (None Detect) U Cannabinoids Screen (None Detect) Serum Alcohol 85 H (<10) mg/dL 08/06/17 08/06/17 08/06/17 Range/Units 01:40 01:40 01:40 WBC 10.6 (3.5-10.8) 10^3/ul RBC 4.97 (4.0-5.4) 10^6/ul Hgb 15.0 (14.0-18.0) g/dl Hct 43 (42-52) % MCV 85 (80-94) fL MCH 30 (27-31) pg MCHC 35 (31-36) g/dl RDW 14 (10.5-15) % Plt Count 374 (150-450) 10^3/ul MPV 8 (7.4-10.4) um3 Neut % (Auto) 28.3 L (38-83) % Lymph % (Auto) 60.4 H (25-47) % [place] % (Auto) 7.4 (1-9) % Eos % (Auto) 3.3 (0-6) % Baso % (Auto) 0.6 (0-2) % Absolute Neuts (auto) 3.0 (1.5-7.7) 10^3/ul Absolute Lymphs (auto) 6.4 H (1.0-4.8) 10^3/ul Absolute Monos (auto) 0.8 (0-0.8) 10^3/ul Absolute Eos (auto) 0.3 (0-0.6) 10^3/ul Absolute Basos (auto) 0.1 (0-0.2) 10^3/ul Absolute Nucleated RBC 0.01 10^3/ul Nucleated RBC % 0.1 INR (Anticoag Therapy) (0.89-1.11) D-Dimer, Quantitative (Less Than 230) ng/mL Sodium (133-145) mmol/L Potassium (3.5-5.0) mmol/L Chloride (101-111) mmol/L Carbon Dioxide (22-32) mmol/L Anion Gap (2-11) mmol/L BUN (6-24) mg/dL Creatinine (0.67-1.17) mg/dL Est GFR ( Amer) (>60) Est GFR (Non-Af Amer) (>60) BUN/Creatinine Ratio (8-20) Glucose (70-100) mg/dL Calcium (8.6-10.3) mg/dL Total Bilirubin (0.2-1.0) mg/dL AST (13-39) U/L ALT (7-52) U/L Alkaline Phosphatase (34-104) U/L Total Creatine Kinase (10-223) U/L CK-MB (CK-2) (0.6-6.3) ng/mL Troponin I (<0.04) ng/mL C-Reactive Protein (< 5.00) mg/L B-Natriuretic Peptide ( - 100) pg/mL Total Protein (6.4-8.9) g/dL Albumin (3.2-5.2) g/dL Globulin (2-4) g/dL Albumin/Globulin Ratio (1-3) TSH Urine Color Yellow Urine Appearance Clear Urine pH 8.0 (5-9) Ur Specific [place] 1.003 L (1.010-1.030) Urine Protein Negative (Negative) Urine Ketones Trace H (Negative) Urine Blood Negative (Negative) Urine Nitrate Negative (Negative) Urine Bilirubin Negative (Negative) Urine Urobilinogen Negative (Negative) Ur Leukocyte Esterase Negative (Negative) Urine Glucose Negative (Negative) Salicylates (<30) mg/dL Urine Opiates Screen None detected (None Detect) Acetaminophen mcg/mL Ur Barbiturates Screen None detected (None Detect) Ur Phencyclidine Scrn None detected (None Detect) Ur Amphetamines Screen None detected (None Detect) U Benzodiazepines Scrn None detected (None Detect) Urine Cocaine Screen None detected (None Detect) U Cannabinoids Screen Presumptive positive H (None Detect) Serum Alcohol (<10) mg/dL Result Diagrams: 08/06/17 01:40 08/06/17 01:40 Lab Statement: Any lab studies that have been ordered have been reviewed, and results considered in the medical decision making process. - Radiology CXR Xray Interpretation: No Acute Changes - NAD Radiology Interpretation Completed By: ED Physician - EKG 0225 Cardiac Rate: NL - 72 bpm EKG Rhythm: Sinus Rhythm EKG Interpretation: Nl Av/IV CT, nl QTC, nl axis, no acute changes Re-Evaluation - Re-Evaluation First Eval Re-Evaluation Time: 05:05 Comment: Pt reports that he has an abscessed tooth for which he has been taking Clindamycin for about 1 week. States that the tooth is improving. Pt reports that he is having difficulty finding an oral surgeon willing to remove the teeth. States his sinuses have becoming inflamed and that he hsa been having difficulty breathing due to the inflamed sinuses. Pt reports he believes he started "freaking out" due to being unable to breathe well. States that he had been taking Xyzal for allergies but his insurance no longer covers it and that he has been having a bad allergy season. Pt reports that he feels well enough to be D/C to home. Denies CP. PMHx pseudoseizures and he believes that he had one tonight. Requests Benadryl for allergies. Second Eval Re-Evaluation Time: 05:19 Comment: Pt is not sucidial. Pt reports he has been under a lot of stress and that hsi ex-girlfriend recently went to get her stuff andhis credit collections rep was there as he has an order of protectoin against her. Currently, the pt lives alone with his cat, but his neighbor checks on him occasionally. Has a therapist, Lico, that he saw today. 2 days ago when he felt depressed he had a friend come over and sleep at his house. He pinktammi swears a contract for safety. Course/Dx - Course Assessment/Plan: Pt is a 22 y/o M BIBA who presents to ED with anxiety and SOB s /p EtOH use. Pt reports that tonight he had used "just tobacco" and EtOH. 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 The neighbors that were on the scene cite an increase in stress for the pt, telling EMS that the pt had a difficult week recently. EMS said that while en route, the pt reports he "had a lot of stuff going on" including a recent breakup, and issue with prescriptions and something that involved a credit collections rep. Denies SIs. Reports that he did not take more medication than usual tonight. PMHx anxiety, depression. Doctor aware of lactate of 7.7 at 0238. Lactic acid and absolute neutrophil and CK are likely to be from dental infection and pseudoseizure he had before coming to the ED. He is not toxic at all. UA negative for UTI. Serum alcohol of 85. In the ED course, pt received Benadryl, potassium chloride and fluids. Pt will be D/C to home with Rx for Flonase, Claritian and Astepro. He understands and agrees. pt medications reviewed this visit. Allergies noted. - Differential Dx/Clinical Impression Provider Diagnosis: Sinusitis, Hypokalemia, Seasonal allergies, Alcohol intoxication, Dental abscess Discharge - Discharge Plan Condition: Stable Disposition: HOME Prescriptions: Azelastine 0.15% NASAL(NF) [Astepro 0.15% NASAL (NF)] 1 spray NASAL BID #1 spray Fluticasone NASAL SPRAY 50MCG* [Flonase NASAL SPRAY 50MCG*] 2 spray BOTH NARES DAILY #1 btl Loratadine [Claritin 10 MG CAP] 10 mg PO DAILY #30 cap Patient Education Materials: Dental Abscess (ED), Sinusitis (ED), Allergic Rhinitis (ED), Alcohol Intoxication (ED) Referrals: Georgia Sam MD [Primary Care Provider] - 3 Days Additional Instructions: Return to ED for any returning or worsening symptoms. The documentation as recorded by the Barbara barlow Rebecca accurately reflects the service I personally performed and the decisions made by , Sherry Dimas MD.
== END 2017-08-06 05:58 | disposition home or self-care (01) ==
LOC: ED 01:30
DX: J32.9 Chronic sinusitis, unspecified (principal); E87.6 Hypokalemia; J30.2 Other seasonal allergic rhinitis; F10.129 Alcohol abuse with intoxication, unspecified; R06.02 Shortness of breath; Y90.4 Blood alcohol level of 80-99 mg/100 ml; K04.7 Periapical abscess without sinus
CPT/HCPCS: 36415; 71020; 80053; 80307; 80320; 80329; 81003; 82550; 82553; 83605; 83880; 84443; 84484; 85025; 85060; 85379; 85610; 86140; 93005; 99283; A9270-GY; G0480

== ENCOUNTER 2018-01-26 13:15 | Emergency (ER) | payer MEDICAID, OTHER ==
[2018-01-26 14:44] LABS: ABS Basophils 0 10^3/ul (0-0.2); ABS Eosinophils 0.1 10^3/ul (0-0.6); ABS Monocytes 0.5 10^3/ul (0-0.8); ABS Neutrophils 2.2 10^3/ul (1.5-7.7); ABS Nucleated RBC 0 10^3/ul; Eosinophil % 1.9 % (0-6); Hematocrit 48 % (42-52); Hemoglobin 16.7 g/dl (14.0-18.0); Lymphocyte % 51.8 % (25-47); Mean Corpuscular HGB Conc 35 g/dl (31-36); Mean Corpuscular Hemoglobin 31 pg (27-31); Mean Corpuscular Volume 87 fL (80-94); Mean Platelet Volume 7.5 um3 (7.4-10.4); Nucleated Red Blood Cells % 0.1; Platelet Count 311 10^3/ul (150-450); Red Blood Count 5.48 10^6/ul (4.0-5.4); Red Cell Distribution Width 13 % (10.5-15); White Blood Count 5.8 10^3/ul (3.5-10.8)
[2018-01-26 15:00] LABS: EGFR Non-African American 105.9 (>60)
[2018-01-26] MEDS ORDERED: Ketorolac INJ* 30 MG/ML 1 ML VIAL IV PUSH ONE (15:45)
--- NOTE | 2018-01-26 15:55 | ED ---
Neurological HPI - HPI Summary HPI Summary: Patient is a 22-year-old male presenting to the ED with 10 out of 10 right- sided facial pain which has been intermittent yet present 6 days. Acute onset. He describes it as several minutes of unilateral sharp pains to the right temporal right maxillary and right mandible region. The pain is not worse with palpation, not alleviated with medications or rest. He has been taking Tylenol 3 times several days without relief of symptoms. He states ice is somewhat relieving from a 10 out of 10 to a 9 out of 10 on the pain scale. Denies any health history and takes no medications on a daily basis. Denies any dizziness, blurry vision, double vision, tearing from the eye. He endorses left-sided lower dental pain with infection and was to see a dentist today, however due to worsening pain he comes into the ED for evaluation. Pain is not worse with stimuli. Denies any other symptoms including nausea, vomiting, diarrhea, constipation or other URI symptoms. - History of Current Complaint Chief Complaint: EDDentalPain Stated Complaint: DENTAL PAIN Time Seen by Provider: 01/26/18 13:47 Hx Obtained From: Patient Onset/Duration: Sudden Onset Timing: Constant Onset Severity: Severe Current Severity: Severe Seizure Severity: Severe Headache Location: Temporal (Right) Pain Intensity: 10 Pain Scale Used: 0-10 Numeric Character: Agitation Alleviating: Ice Associated Signs and Symptoms: Positive: Agitation - Additional Pertinent History Primary Care Physician: [id number] - Allergy/Home Medications Allergies/Adverse Reactions: Allergies Allergy/AdvReac Type Severity Reaction Status Date / Time MS Penicillins [Penicillins] Allergy Intermediate Rash Verified 01/26/18 13:53 MS Amoxicillin [Amoxicillin] Allergy Unknown Unknown Verified 01/26/18 13:53 Reaction Details MS Clindamycin [Clindamycin] Allergy See Comment Verified 01/26/18 13:53 MS Oxcarbazepine AdvReac Severe SEIZURES Verified 01/26/18 13:53 [From Trileptal] PMH/Surg Hx/FS Hx/Imm Hx Previously Healthy: Yes Endocrine/Hematology History: Denies: Hx Diabetes, Hx Thyroid Disease Cardiovascular History: Denies: Hx Hypertension Respiratory History: Reports: Hx Asthma, Hx Seasonal Allergies Denies: Hx Chronic Obstructive Pulmonary Disease (COPD) GI History: Denies: Hx Irritable Bowel, Hx Ulcer Sensory History: Reports: Hx Contacts or Glasses Denies: Hx Hearing Aid Opthamlomology History: Reports: Hx Contacts or Glasses Neurological History: Reports: Hx Headaches, Hx Migraine, Other Neuro Impairments/Disorders - HX seizures/pseudoseizures, HYPERSOMNIA Psychiatric History: Reports: Hx Anxiety, Hx Depression, Hx Inpatient Treatment , Hx Community Mental Health Tx, Hx Suicide Attempt, Hx Substance Abuse, Other Psychiatric Issues/Disorders - IDIOPATHIC HYPERSOMNIA Denies: Hx Eating Disorder, Hx of Violent Episodes Against Others - Surgical History Surgery Procedure, Year, and Place: TONSILLECTOMY, TESTICLE SURGERY, WISDOM TEETH - Immunization History Date of Tetanus Vaccine: unknown Date of Influenza Vaccine: Fall 2014 Hx Pertussis Vaccination: No Immunizations Up to Date: Unable to Obtain/Confirm Infectious Disease History: No Infectious Disease History: Reports: Hx Shingles Denies: Hx Hepatitis, Hx Human Immunodeficiency Virus (HIV), History Other Infectious Disease, Traveled Outside the [place] in Last 30 Days - Family History Known Family History: Positive: Cardiac Disease - paternal - Social History 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, 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 Lives: With Family Alcohol Use: Occasionally Alcohol Amount: 3-4 BEERS/WK Hx Substance Use: Yes Substance Use Type: Reports: Marijuana Substance Use Comment - Amount & Last Used: OCCAS Hx Tobacco Use: Yes Smoking Status (MU): Heavy Every Day Tobacco Smoker Type: Cigarettes Amount Used/How Often: 4-5 CIGARETTES/DAY Length of Time of Smoking/Using Tobacco: 2YRS Have You Smoked in the Last Year: Yes Review of Systems Constitutional: Negative Negative: Fever, Chills, Fatigue, Skin Diaphoresis Eyes: Negative Cardiovascular: Negative Gastrointestinal: Negative Positive: no symptoms reported, see HPI Musculoskeletal: Negative Neurological: Other - pain to the R side of his face distributed over the facial nerve All Other Systems Reviewed And Are Negative: Yes Physical Exam - Summary Physical Exam Summary: Appearance: WDW, comfortable, pleasant, alert Skin: Soft dry skin, no lesions. Nailbeds pink with no cyanosis or clubbing. No petechia noted. Eyes: RICHI, EOMI, Conjunctiva pink with no redness or exudates. Mouth: Dentition without lesions. Moist mucosa Neck: Full range of motion. Palpable thyroid. Trachea at midline. No lymphadenopathy. Pulm: Chest symmetrical expansion. No deformities on posterior chest wall. Lungs clear to auscultation and percussion, without adventitious sounds. CV: No JVD. No deformities on anterior chest wall. Heart sounds. RRR. Normal S1 and single S2. No S3, S4, rubs, or murmurs. Carotids 2+ bilaterally without bruits. . exam not performed GI: Bowel sounds WNL in all 4 quadrants. No pain on deep palpation of all 4 quadrants. Negative lr's, negative obturator. Psoas not performed. No pain over Mcburney's point. Musculoskeletal: Flexion and extension of neck without limitations. ROM WNL in all extremities. No deformities noted. Pulses +2 bilaterally. Neuro: Motor strength is 5/5 in upper and lower extremities bilaterally. A& OX3. Pain over the R side of the face in the 5th CN nerve distribution. Psych: Logical, coherent Triage Information Reviewed: Yes Vital Signs On Initial Exam: Initial Vitals Temp Pulse Resp BP Pulse Ox 97.8 F 91 22 134/55 99 01/26/18 13:17 01/26/18 13:17 01/26/18 13:17 01/26/18 13:17 01/26/18 13:17 Vital Signs Reviewed: Yes Appearance: Positive: Well-Appearing, Well-Nourished Skin: Positive: Warm, Skin Color Reflects Adequate Perfusion Head/Face: Positive: Normal Head/Face Inspection Eyes: Positive: EOMI, RICHI, Conjunctiva Clear Neck: Positive: Supple, Nontender, No Lymphadenopathy Respiratory/Lung Sounds: Positive: Clear to Auscultation, Breath Sounds Present Cardiovascular: Positive: RRR, Pulses are Symmetrical in both Upper and Lower Extremities Musculoskeletal: Positive: Normal, Strength/ROM Intact Neurological: Positive: Sensory/Motor Intact, Alert, Oriented to Person Place, Time, Other - facial nerve pain not worse with palpation Psychiatric: Positive: Anxious AVPU Assessment: Alert - [place] Coma Scale Best Eye Response: 4 - Spontaneous Best Motor Response: 6 - Obeys Commands Best Verbal Response: 5 - Oriented Coma Scale Total: 15 Diagnostics - Vital Signs Vital Signs Temp Pulse Resp BP Pulse Ox 01/26/18 13:17 97.8 F 91 22 134/55 99 - Laboratory Lab Results: Lab Results 01/26/18 01/26/18 Range/Units 14:30 14:30 WBC 5.8 (3.5-10.8) 10^3/ul RBC 5.48 H (4.0-5.4) 10^6/ul Hgb 16.7 (14.0-18.0) g/dl Hct 48 (42-52) % MCV 87 (80-94) fL MCH 31 (27-31) pg MCHC 35 (31-36) g/dl RDW 13 (10.5-15) % Plt Count 311 (150-450) 10^3/ul MPV 7.5 (7.4-10.4) um3 Neut % (Auto) 37.1 L (38-83) % Lymph % (Auto) 51.8 H (25-47) % [place] % (Auto) 8.6 H (0-7) % Eos % (Auto) 1.9 (0-6) % Baso % (Auto) 0.6 (0-2) % Absolute Neuts (auto) 2.2 (1.5-7.7) 10^3/ul Absolute Lymphs (auto) 3.0 (1.0-4.8) 10^3/ul Absolute Monos (auto) 0.5 (0-0.8) 10^3/ul Absolute Eos (auto) 0.1 (0-0.6) 10^3/ul Absolute Basos (auto) 0 (0-0.2) 10^3/ul Absolute Nucleated RBC 0 10^3/ul Nucleated RBC % 0.1 ESR 3 (0-14) mm/Hr Sodium 136 L (139-145) mmol/L Potassium 3.9 (3.5-5.0) mmol/L Chloride 100 L (101-111) mmol/L Carbon Dioxide 23 (22-32) mmol/L Anion Gap 13 H (2-11) mmol/L BUN 4 L (6-24) mg/dL Creatinine 0.89 (0.67-1.17) mg/dL Est GFR ( Amer) 136.2 (>60) Est GFR (Non-Af Amer) 105.9 (>60) BUN/Creatinine Ratio 4.5 L (8-20) Glucose 91 (70-100) mg/dL Calcium 10.2 (8.6-10.3) mg/dL Total Bilirubin 0.90 (0.2-1.0) mg/dL AST 21 (13-39) U/L ALT 15 (7-52) U/L Alkaline Phosphatase 71 (34-104) U/L C-Reactive Protein < 1.00 (< 5.00) mg/L Total Protein 7.9 (6.4-8.9) g/dL Albumin 5.0 (3.2-5.2) g/dL Globulin 2.9 (2-4) g/dL Albumin/Globulin Ratio 1.7 (1-3) Result Diagrams: 01/26/18 14:30 01/26/18 14:30 Lab Statement: Any lab studies that have been ordered have been reviewed, and results considered in the medical decision making process. Course/Dx - Course Course Of Treatment: Patient is evaluated for right-sided facial pain which differentials include trigeminal neuralgia versus infection versus dental pain versus temporal arteritis versus migraine. Pain is located in the trigeminal neuralgia region over the ophthalmic, maxillary, mandible nerve region of cranial nerve 5. Symptoms are not aggravated with palpation or better with rest. There is no tearing from the eye. Discussed the case with Dr. Aguilar who suggests an MRI with and without contrast to assess for demyelination. During the MRI course, patient was unable to take out his piercings and they were unable to complete the MRI. He continues to complain of 10 out of 10 pain. He is crying and visibly upset and in distress. He had taken 3 Tylenol #3 just prior to arrival. I have given him Toradol 30 mg IV. ESR 3, CRP is negative. All other labs are unremarkable. MRI obtained which shows no acute abnormalities. Toradol without effect. Discussed the case with Dr. Aguilar once again who recommends Tegretol 200 mg twice a day. He will follow up with his PCP this week and I have given him a referral to Dr. Aguilar. I discussed with the patient I am unsure the cause of his symptoms, but is likely due to trigeminal neuralgia. He is agreeable to plan and discharge and will take his at home medication of Tylenol with codeine for any pain relief. - Diagnoses Provider Diagnoses: Facial pain Discharge - Sign-Out/Discharge Documenting (check all that apply): Discharge - Discharge Plan Condition: Stable Disposition: HOME Prescriptions: Carbamazepine [Tegretol] 200 mg PO BID #28 tablet Patient Education Materials: Trigeminal Neuralgia (ED) Referrals: Georgia Sam MD [Primary Care Provider] - Additional Instructions: I have given you information on trigeminal neuralgia Please follow up with Dr. Sam If symptoms do not improve, please follow up with Dr. Aguilar Call her office You have been placed on a medication called Tegretol This medication may cause the side effects of blurry vision or dizziness - Billing Disposition and Condition Condition: STABLE Disposition: HOME
[2018-01-26] MEDS ORDERED: Gadoteridol* (CONTRAST) 279.3 MG/ML 10 ML IV ONE (16:14)
--- NOTE | 2018-01-26 17:11 | RAD ---
INDICATION: Right-sided jaw pain for several days COMPARISON: CT brain dated April 04, 2017 TECHNIQUE: Sagittal T1, axial T1, T2, susceptibility, FLAIR and diffusion-weighted images were obtained. In addition, axial, sagittal and coronal T1-weighted images were obtained following intravenous injection of 13 mL of ProHance contrast. FINDINGS: The ventricles, cisterns and sulci appear to be within normal limits. There are focal areas of increased signal intensity in T2-weighted images present within the subcortical and periventricular white matter most consistent with mild chronic small vessel ischemic changes. No other significant focal abnormality or mass effect is seen. No areas of restricted diffusion are present. There is no evidence for infarct or hemorrhage. The visualized portion of the paranasal sinuses appear clear. On the left side the anteriormost portion of the temporal bone exhibits an absence of air cells as seen on the contralateral side measuring 1.6 x 8 mm (axial image 8 on series 7). There is no suspicious enhancement on the postcontrast images. Review of the bilateral temporomandibular joints does not show any asymmetry, abnormal signal or enhancement at either the right or left joint space. IMPRESSION: Normal MRI of the brain with and without intravenous contrast.
[2018-01-26 18:15] VITALS: BP 128/52
== END 2018-01-26 18:14 | disposition home or self-care (01) ==
LOC: ED 13:15
DX: R51 Headache (principal); Z88.1 Allergy status to other antibiotic agents; Z88.0 Allergy status to penicillin; Z88.8 Allergy status to other drugs, medicaments and biological substances; J45.909 Unspecified asthma, uncomplicated; G40.909 Epilepsy, unspecified, not intractable, without status epilepticus; F17.210 Nicotine dependence, cigarettes, uncomplicated
CPT/HCPCS: 36415; 70553; 80053; 85025; 85652; 86140; 96374; 99283; A9579; J1885

== ENCOUNTER 2018-02-08 16:09 | Emergency (ER) | payer OTHER ==
--- OUTSIDE RECORDS SUMMARY | 2018-02-08 16:28 | XMS REPORT ---
:1995 External Reference #:[id number] Author Organization [facility] Address [address] [place] [address] Phone [phone] Care Team Providers Name Role Phone Georgia Sam Care Team Information Radiology Ct Technologist Unavailable Georgia Sam Primary Care Physician Unavailable Payers Type Date Identification Numbers Payment Provider Subscriber Medicaid Effective: Policy Number: [id number] [facility] Kirill Barrera 2016 PayID: [id number] [address] [address] [place] [address] Medicaid Effective: 2015 Policy Number: [place] Kirill Barrera [id number] Expires: 2016 PayID: [id number] [address] [facility] [place] [address] Problems Date Description Provider Status Onset: 10/17/2007 Allergic condition Edmond Zuñiga M.D. Active Onset: 10/17/2007 Asthma without status asthmaticus Edmond Zuñiga M.D. Active Onset: 08/31/2011 Acne Anastasia Cooley M.D. Active Onset: 08/31/2011 Anxiety state Anastasia Cooley M.D. Active Onset: 08/31/2011 Mental state, behavior and/or Anastasia Cooley M.D. Active psychosocial function finding Onset: 12/31/2011 Migraine without aura, not Anastasia Cooley M.D. Active refractory Onset: 06/20/2013 Contact dermatitis Georgia Sam M.D. Active Onset: 06/20/2013 Hypersomnia Georgia Sam M.D. Active Onset: 11/12/2014 Depressive disorder Georgia Sam M.D. Active Onset: 01/14/2015 Tobacco user Georgia Sam M.D. Active Onset: 01/14/2015 Refractory migraine Georgia Sam M.D. Active Onset: 08/23/2015 Multiple personality disorder Georgia Sam M.D. Active Onset: 08/23/2015 Adjustment disorder with mixed Georgia Sam M.D. 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 Active Family History Date Family Member(s) Problem(s) Comments Father Heart Disease Father Alcoholism Mother Fibromyalgia Mother Chronic Fatigue Mother Degenerative Disc Disease Number of Siblings 1/2 brother Paternal Grandfather due to Congestive Heart Failure () Paternal Grandfather due to Skin Cancer () Paternal Grandmother due to Congestive Heart Failure () Paternal Grandmother due to COPD () Maternal Grandfather due to Leukemia () Maternal Grandfather due to Alcoholism () Maternal Grandmother Stroke Maternal Grandmother Hypertension Maternal Grandmother Arthritis Social History Type Date Description Comments Education stopped in 11th grade. got his Ged. Living Situation Lives with a friend. Estranged from father, parents when patient was 2 yo. Last contact age 12. Sleep Typically sleeps 8 hours a night or more Pets Household pets include a cat and snake and mice. Occupation Has tried to work [employer] due to idiopathic jobs, but is unable to hold hypersomnia, despite good them down attempts at working. Cigarette Use Current Cigarette Smoker 1 tyring to quit. Has Pack Daily tried to quit numerous times. can goes days without a cigarette, but vapes every hour or two. ETOH Use Denies alcohol use Recreational Drug Use Denies Drug Use Smoking Patient is a former smoker QUIT smoking 10/16. Exercise Type/Frequency lifts weights at home. Current Calisthenics at home. Walks everywhere. Currently Active The patient is currently sexually active. Allergies, Adverse Reactions, Alerts Date Description Reaction Status Severity Comments 11/17/2006 Amoxicillin active 11/17/2006 Penicillin active 09/25/2008 Trileptal active SEIZUREs increased frequency 08/26/2016 Nuvigil active Rage 08/26/2016 Abilify active urinary retention, metabolic derangements combo w przc/rital 11/17/2006 Doxycycline Mom thinks this is inactive incorrect. 08/09/2012 05/03/2017 Clindamycin inactive swollen lymph node Medications Medication Date Status Form Strength Qnty SIG Indications Ordering Provider Ondansetron HCL 01/31 Active Tablets 4mg 40tabs 1-2 by Georgia Mishra /2017 mouth Flaco, every M.D. 4-6h as needed nausea Hydrocodone 01/27 Active Tablets 7.5-300mg 60tabs 1 by Georgia Mishra Bitartrate/Aceta /2017 mouth Flaco, minophen twice M.D. daily Acetaminophen-Co 01/13 Active Tablets 300-60mg 60tabs 1 by Georgia Mishra deine mouth [place], twice M.D. daily Doxycycline 12/03 Active Tablets 50mg 60tabs take one L70.0 Georgia Mishra Monohydrate tablet Flaco, by mouth M.D. twice a day as directed Montelukast 11/26 Active Tablets 10mg 90tabs 1 by J30.9 Georgia L. Sodium mouth Flaco, every M.D. night Diphenhydramine 11/26 Active Capsules 50mg 30caps 1 by J30.9 Georgia LSuzanne HCL mouth at Flaco, hs M.D. Ibuprofen 07/06 Active Tablets 800mg 90tabs take 1 K12.2 Georgia Mishra tablet Flaco, every 8 M.D. hours3 times a day with food as needed Methylphenidate 02/17 Active Tablets 20mg 60tabs 1 by G47.11 Mary Janis HCL mouth Saeed, POULTRYMAN twice daily Hydroxyzine 08/10 Active Capsules 25mg 60caps 1-2 by F41.9 Alba Pamoate mouth Miah, every WELDER FITTER day - three times a day as needed anxiety/ panic Excedrin Active Tablets 250-250-6 Unknown Migraine 5mg Triamcinolone Active Ointment 0.1% Unknown Acetonide Mupirocin Active Ointment 2% Unknown Desonide Active Cream 0.05% 60gm apply to Georgia L. affected Flaco, area M.D. twice a day as needed Bupropion HCL ER Active Tablets 300mg 1 by Unknown (XL) ER 24HR mouth every day Methylfolate Active Capsules 400mcg 2 PO qd Doxycycline 10/05 Hx Capsules 50mg 60caps 1 by L70.0 Georgia Mishra Hyclate mouth Flaco, - twice M.D. 12/03 Acetaminophen-Co 08/11 Hx Tablets 300-60mg 60tabs 1 by Georgia cheryine mouth [place], - twice M.D. 11/26 Clindamycin HCL 07/06 Hx Capsules 300mg 30caps 1 by K12.2 Georgia Mishra mouth [place], - three M.D. 11/26 daily Buspirone HCL 07/06 Hx Tablets 30mg 30tabs 1 by F43.23 Georgia Mishra mouth [place], - every M.D. 11/26. Buspirone HCL 04/14 Hx Tablets 7.5mg 60tabs 1 by F43.23 Georgia Mishra mouth [place], - twice M.D. 05/03 Deplin 7.5 12/02 Hx Capsules 7.5-90.31 30caps 1 by F33.1 Georgia Mishra 4mg mouth [place], - daily M.D. 12/03 Diazepam 12/02 Hx Tablets 2mg 10tabs 1-2 by F43.22 Georgia LSuzanne mouth Flaco, - 1/2 hour M.D. 10/04 prior to procedur e. Vitamin D 09/14 Hx Capsules [id number] 12caps take 1 Georgia Mishra (Ergocalciferol) capsule Flaco, - by mouth M.D. 02/17 weekly for 12 weeks. Methylphenidate 08/26 Hx Capsules 10mg 30caps 1 by G47.11 Georgia LSuzanne HCL ER (CD) ER mouth Flaco, - every M.D. 02/17 Fluoxetine HCL 08/05 Hx Capsules 40mg 30caps 1 by F33.1 Georgia L. /2015 mouth [place], - every M.D. Abilify 08/05 Hx Tablets 10mg F33.1 Georgia L. /2015 [place], - M.D. 08/05 Aripiprazole 08/05 Hx Tablets 5mg 30tabs 1 by F33.1 Georgia L. /2015 mouth [place], - daily M.D. 08/26 Bactrim DS 08/05 Hx Tablets 800-160mg 14tabs 1 by L70.0 Georgia L. /2015 mouth [place], - twice a M.D. 09/14 day x days. Please Excuse 08/05 Hx 11:56 am Gabrielle3.1 Georgia Danica From [place], Today. Seen At - M.D. The Doctor's 12/02 Fluoxetine HCL 07/27 Hx Tablets 20mg F33.1 Georgia L. /2015 [place], - M.D. 09/14 Fluoxetine HCL 07/27 Hx Tablets 20mg 45tabs 1 11/02 F33.1 Georgia L. tabs by [place], - mouth M.D. 09/14 day. Synalar Solution 07/27 Hx 120cc apply to L21.0 Georgia L. 60cc With 60 cc scalp Flaco, Of Lubriderm - twice M.D. 07/27 daily. Nizoral 07/27 Hx Shampoo 2% 240ml apply to L21.0 Georgia L. /2015 affected Flaco, - area for M.D. 10/04 3- minutes for 7 days. repeat as necessar y Fluoxetine HCL 06/26 Hx Tablets 20mg 30tabs 1 tablet F33.1 Shanell daily by DARRON Zhong - mouth 06/26 Fluoxetine HCL 06/26 Hx Capsules 20mg 30caps 1 by F33.1 mouth DARRON Zhong - every Levocetirizine 05/11 Hx Tablets 5mg 30tabs 1 by R23.8 Georgia Mishra Dihydrochloride /2015 mouth [place], - every M.D. Nicoderm CQ 02/02 Hx Patches 21mg/24HR 30units 1 patch G40.89 Georgia L. /2015 24HR topicall Flaco, - y every M.D. Methylphenidate 08/23 Hx Capsules 10mg 30caps 1 by G47.11 Georgia L. HCL ER (CD) /2014 ER mouth Flaco, - every M.D. 08/26 Levocetirizine 04/10 Hx Tablets 5mg 30tabs 1 by 782.9 Izabel Dihydrochloride /2014 mouth Uzma, - every WELDER FITTER Azithromycin 04/10 Hx Tablets 250mg 6tabs take 2 782.9 Izabel /2014 tablets Uzma, - by mouth WELDER FITTER 08/23 then take 1 tablet daily for next 4 days Vitamin D 02/04 Hx Capsules [id number] 10caps take 1 268.9 Georgia L. (Ergocalciferol) capsule Flaco, - by mouth M.D. 08/23 weekly for 10 weeks. It Is Important 02/04 Hx Start 311 Georgia L. To Exercise with 10 Flaco, Every Day. - minutes M.D. 04/10 a and increase slowly. Exercise is as importan t as medicati on. Rizatriptan 01/14 Hx Tablets 5mg 10tabs 1 346.80 Georgia L. Benzoate Dispers sublingu Flaco, - al prn. M.D. 08/23 repeat in two hours as necessar y Tramadol HCL 01/14 Hx Tablets 50mg 40tabs 1-2 by 346.80 Georgia L. mouth [place], - every 6 M.D. 08/23 hours as needed pain. pudt Escitalopram 11/29 Hx Tablets 10mg 30tabs 1 by 311 Georgia L. Oxalate mouth [place], - every M.D. Minocycline HCL 11/12 Hx Tablets 75mg 30tabs 1 po 706.1 Georgia L. /2014 daily Flaco, - for acne M.D. 04/10 Hydrocortisone 08/10 Hx Ointment 2.5% apply to affected Medicine - area [facility] 04/10 twice a Of day Zyrtec Allergy 07/24 Hx Tablets 10mg 30tabs 1 by mouth Medicine - every [facility] 04/10 day Of Nuvigil 07/24 Hx Tablets 500mg 1/2 PO prn [facility] 08/10 Of Nuvigil 07/24 Hx Tablets 250mg 30tabs 1 by 780.54 Georgia L. mouth [place], - daily M.D. 07/24 Escitalopram 07/24 Hx Tablets 10mg 30tabs 1 by 311 Georgia LSuzanne mouth [place], - every M.D. Retin-A 04/02 Hx Cream 0.05% 45gm apply 706.1 Georgia LSuzanne thin Flaco, - layer at M.D. 07/23 hs after cleansin g Loratadine 06/20 Hx Tablets 10mg 30tabs 1 po qd Georgia LSuzanne Flaco, - M.D. 04/02 Triamcinolone 01/27 Hx Cream 0.1% 60units apply to 692.9 Georgia LSuzanne Acetonide affected Flaco, - area bid M.D. 07/23 until clear Benzaclin 08/09 Hx Gel 1-5% 50gm use 706.1 Georgia L. qd-bid Flaco, - after M.D. 04/02 washing area with soap and water generic Note For School 03/23 Hx Pt was Anastasia Serrano /2011 ill on: Lenora, - , M.D. 04/14 01/04, 01/13, 01/17, 01/24, 01/26, 02/01, 02/15, 02/18, 02/21, 03/04, 03/08, 03/15, 03/18 02/23-, 03/02 pls provide tutor coordinator Ceftin 02/25 Hx Tablets 250mg 40tabs 1 bid 461.8 Izabel /2011 x20d Uzma, - WELDER FITTER 04/14 Note For School 12/17 Hx Please Anastasia Serrano excuse Lenora, - absences M.D. 12/30Oct 15, , , Nov 06, , , , , , & Dec 07, 2011. Pls allow tutoring to catch up. Ceftin 12/10 Hx Tablets 250mg 20tabs 1 bid Edmond T. Zara, - M.D. 12/30 School Excuse 12/10 Hx unable Edmond T. to [facility], - attend M.D. 12/30 due to illness School Note 09/18 Hx Please Anastasia Serrano excuse Lenora, - absences M.D. 12/10 tutor coordinator prn, dates :09/18, , , , , 10/06, , , , 11/03 Dx: URI, Migraine s Nizoral 09/16 Hx Shampoo 2% 8oz lather 690.11 and Kinza, - massage Afnp-C 10/04 for min, rinse after 3min, rinse and repeat 2x a week x 4 weeks then prn for maintana nce Azithromycin 08/28 Hx Tablets 250mg 6tabs 2 po 462 Georgia L. /2010 today. Flaco, - 1 po M.D. 09/16 daily 4 Please Excuse 08/28 Hx 462 Georgia L. From Fl[place], Today. Medical - M.DSuzanne Excuse. 09/16 School Note 08/19 Hx Please Anastasia Serrano provide Lenora - tutor coordinator to M.DSuzanne 08/28 recover from multiple absences from illness: 07/23, 07/28, 07/29, 08/03, 08/04, 08/05, 08/06, & 08/14. Azithromycin 08/04 Hx Tablets 250mg 6tabs 2 po Edmond T. today Zara, - and 1 po M.D. 08/28 x 4 days Clindamycin 07/27 Hx Gel 1% 60gm apply Anastasia Serrano bid Amarilis Cooley Bryce 12/10 Note For School 03/04 Hx PT was seen by Amarilis Harris MD for M.DSuzanne 06/24 manage nt of chronic medical illness Buspirone HCL 01/22 Hx Tabs 10mg 60tabs Take 1 Tablet stanford Lopez, - By Mouth M.DSuzanne 03/04 Twice A Day Buspirone HCL 01/19 Hx Tabs 10mg 60tabs Take 1 Tablet stanford Lopez, - By Mouth M.D. 01/22 Twice A Day Ceftin 12/19 Hx Tablets 250mg 20tabs 1 po bid 465.9 Izabel x 10 Uzma, - days WELDER FITTER 03/04 Ondansetron Odt 11/11 Hx Tablets 4mg 20tabs 1 qid Edmond T. Dispers prn Midura, - nausea M.DSuzanne 03/04 Lotrisone 11/03 Hx Lotion 1-0.05% 30gm apply daily to stanford Lopez, - rash M.DSuzanne 06/24 Out Of School 08/14 Hx pt to be excused stanford Lopez, - from M.Zach 11/03 for 08/13/10 and 08/14/10 Lab Order 07/25 Hx please rechkristyn Harris, - TSH, Bryce 11/03 free T4 dx: hypothyr oidism Zithromax 01/02 Hx Tablets 250mg 11tabs 2 po qd today , stanford Lopez, - then 1 M.DSuzanne 03/03 po qd times 9 Omnaris 01/02 Hx Suspensio 50mcg/Act Samples Amarilis Martin M.D. 04/30 Buspar 12/17 Hx Tablets 10mg 60tabs 1 po bid Amarilis Harris M.D. 01/19 Ceftin 12/17 Hx Tablets 500mg 20tabs 1 po bid 465.8 Izabel x 10 Uzma, - days WELDER FITTER 01/02 Oxycodone/Acetam 08/12 Hx Tablets 5-325mg 1 po Family ino q4-6 hrS Medicine - prn [facility] 11/27 Of Zofran Odt 08/12 Hx Tablets 4mg 1 po Dispers Q4-6 HRS Medicine - prn [facility] 11/27 nausea Of Bentyl 08/12 Hx Tablets 20mg 1 PO qid prn GI [facility] - spasm [facility] 11/27 Of Lorazepam 08/12 Hx Tablets 0.5mg 60tabs 1-2 po Alba bid Amarilis Harris M.D. 11/27 Note For School 08/12 Hx pt march Edmond TSuzanne take Zara, - lorazepa Bryce 08/28 m 0.5 mg /2010 1 tab as needed for anxiety Zithromax 06/03 Hx Tablets 250mg 6Tabs 2 po qd 465.8 today , Uzma, - then 1 WELDER FITTER 08/12 po qd times 4 School Excuse 12/06 Hx unable Edmond T. to Zara, - attend M.Zach 06/0312/04/08- due to illness Zoloft 12/04 Hx Tablets 50mg 1 po qd [facility] 06/03 Of Lorazepam 12/04 Hx Tablets 0.5mg 30tabs 1 po qd Anastasia DSuzanne prn Amarilis Cooley M.D. 10/04 Imitrex 12/04 Hx Tablets 50mg 1 po at onset of Medicine - migraine [facility] 05/22 ; march repeat in 2 hr if no response , no more than 2 in 24 hours Antivert 12/04 Hx Tablets 12.5mg 30tabs 1-2 po Edmond T. tid prn Zara, - dizzines M.DSuzanne 11/27 Azithromycin 11/06 Hx Tablets 250mg 6tabs 2 po 465.8 Chambers A. today Bryce Wharton - and 1 po 11/24 x 4 days /2008 Note 11/06 Hx please Reyes Palomo excuse Bryce Wharton - from 12/04 today due to illness Note 10/03 Hx PT Needs Alba Home stanford Lopez, - Tutoring Bryce 11/06 as Seizure Disorder Prevents Attendin g Classes Keppra 09/25 Hx Tablets 250mg 2 po bid [facility] 08/12 [facility] [place] Ceftin 09/25 Hx Tablets 250mg 20tabs 1 po bid 461.9 Izabel /2007 x 10 Uzma, - days WELDER FITTER 11/06 Note Due To 09/25 Hx kirill was Izabel Health Issues seen by Uzma, - hi today WELDER FITTER 12/04 illness, has been out of school for this since and may return Fexofenadine HCL 09/09 Hx Tabs 60mg 60tabs 1 PO bid Edmond T. prAmarilis Toure M.D. 03/04 Trileptal 08/10 Hx Tablets 300mg 1 PO bid [facility] 09/25 Of Lortab 5 08/10 Hx Tablets 1 PO qd prn [facility] 11/27 [facility] [place] Advair Diskus 06/25 Hx Misc 100/50 1units 1 puff Heriberto A. /2007 bid Amarilis Brooks M.D. 06/03 Proventil 03/29 Hx Aerosol 90mcg/Act 1Mdi 2 puffs q 3-4h stanford Lopez - amanda Wu 03/04 Advair 100/50 10/17 Hx 100/50 Heriberto A. /2006 Amarilis Brooks M.D. 06/25 Ceftin 10/17 Hx Tablets 250mg 20tabs 1 PO bid Edmond T. /2006 Amarilis Zuñiga M.D. 03/29 Nasonex 09/05 Hx Wilton 50mcg 0units 2 sprays each Medicine - nostril [facility] 06/03 qhs Of Clarinex 09/05 Hx Tablets 5mg 30tabs 1 po qd Edmond T. /2006 Amarilis Ferguson M.D. 09/05 s Melonie 09/05 Hx Capsules 60mg 60caps 1 tab po Edmond T. bid prn Amarilis Zuñiga M.D. 12/04 Note 07/20 Hx please 465.9 Reyes Palomo excsea Wharton M.D. - kirill 08/04 school today he could return on wednesday. Note For School 04/14 Hx motrin 200mg stanford Lopez, - 1-2 q M.D. 06/26 4-6hrs prn for headache / may take on school trip Butalbital 04/13 Hx Tablets 50mg;40mg 30tabs 1 po qd Family Acetaminophen ;325MG prn Medicine & Caffeine - [facility] 09/05 [facility] [place] Loratadine 04/13 Hx Tablets 10mg 30tabs 1 po qd prn Medicine - allergie [facility] 09/05 s Veramyst 04/13 Hx Nasal 27.5mg 1units 1 spray [facility] each stanford Lopez - nostril M.Zach 09/05 daily Lortab 04/13 Hx Tablets 5mg;500 50tabs 1/2-1 po mg at night stanford Lopez, - as M.DSuzanne 06/26 needed for pain Alavert 04/13 Hx Dissolve 30units 1 po qd Amarilis Harris M.D. 09/05 "Treat Your Own 02/12 Hx Edmond T. Back" Amarilis Zuñiga M.D. 02/12 Zithromax 02/12 Hx Tablets 250mg 6tabs 2 tabs Edmond T. day 1 Amarilis Zuñiga M.D. 04/13 1 tab qd days 2 thru 5 Alavert 11/17 Hx 1 po qd [facility] 04/13 Of Lorazepam Hx Tablets 1mg 1-2 po q Unknown /0000 2 hours - as 08/12 needed for agitatio n pt is a hospice pt Maxalt 00 Hx Tablets 5mg 6tabs 1 tab at Unknown /0000 onset of - sullivan and 12/30 sx, march repeat in 2 hours if still affected Divalproex 00/00 Hx Tablets 500mg 1 po q Unknown Sodium ER /0000 ER 24HR hs - 07/25 Lorazepam 00/00 Hx Tablets 1mg 100tabs 1-2 po q Alba /0000 4 hours von Felten, - qd prn M.D. 06/24 Divalproex /00 Hx Tablets 250mg 1 po qd Unknown Sodium /0000 ER 24HR - 03/04 Calms Forte /00 Hx qhs prn Unknown Sleep Aid /0000 - 11/03 Zomig 00/00 Hx Tablets 5mg 9tabs 1 po at Georgia L. /0000 edwin Sam, - g of M.D. 04/02 . can repeat in 2 hours. Xyzal 00/00 Hx Tablets 5mg 90tabs 1 po qd Georgia L. /0000 Flaco - M.DSuzanne 06/20 Maxalt 00/00 Hx Tablets 10mg 12tabs 1 tab at Unknown /0000 onset of - migraine 01/26 , march repeat in 2 hours if needed for persiste nt migraine Depakote 00/00 Hx Tablets 500mg 1 po qd Unknown /0000 DR - 08/09 Allergy Relief 00 Hx Tablets 10mg 1-2 po Unknown /0000 qd - 07/23 Ritalin 00/00 Hx Tablets 5mg 1 po Unknown /0000 qd-bid - 08/23 Venlafaxine HCL 00/00 Hx Tablets 25mg 1 po qd Unknown /0000 or as - titrated 04/10 Venlafaxine HCL 00/00 Hx Tablets 150mg 30tabs 1 by Georgia Mishra ER /0000 ER 24HR mouth Flaco, - daily M.D. 02/02 before noon. Clindamycin HCL 00/00 Hx Capsules 150mg 1 by Unknown /0000 mouth - four 11/04 times day Naproxen 00/00 Hx Tablets 500mg 1 by Unknown /0000 mouth - twice a 11/04 day food Buspirone HCL 00/00 Hx Tablets 15mg 60tabs 1 by F43.23 Georgia Mishra /0000 mouth Flaco, - twice a M.D. Bupropion HCL ER 00/00 Hx Tablets 100mg 60tabs 1 by Georgia Mishra (SR) /0000 ER 12HR mouth Flaco, - twice a M.D. Doxycycline Hx Capsules 50mg take 1 Unknown Hyclate /0000 PO bid - 11/26 Medications Administered in Office Medication Date Status Form Strength Qnty SIG Indications Ordering Provider Benadryl 08/10/ Administered Injection Izabel Injection (Per 2013 Uzma, cc) WELDER FITTER Injection 08/10/ Administered Injection Izabel Subcutaneous Or 2013 Uzma, Intramuscular WELDER FITTER Immunizations CPT Code Status Date Vaccine Lot # [id number] Given 08/27/2014 DO Not Use Split Influenza Virus Vaccine [id number] 87629 Given 11/02/2012 DO Not Use Split Influenza Virus Vaccine [id number] 19449 Given 09/16/2011 DO Not Use Split Influenza Virus Vaccine [id number] 60019 Given 06/16/2007 Tdap Tetanus, W Pertussis [id number] 92913 Given 12/04/1999 DO Not Use Split Influenza Virus Vaccine 52873 Given 11/07/1999 DO Not Use Split Influenza Virus Vaccine 04187 Given 06/25/1999 (IPV) Inactive Poliovirus Vaccine 35603 Given 06/25/1999 MMR Virus Immunization 15349 Given 06/25/1999 DTaP Immunization 29225 Given 09/20/1995 DTP Immunization 73778 Given 09/20/1995 MMR Virus Immunization 39463 Given 04/12/1995 Hepatitis B Immunization, [place]-19 Years 77301 Given 01/04/1995 (IPV) Inactive Poliovirus Vaccine 51958 Given 01/04/1995 DTP Immunization 80399 Given 1994 Hepatitis B Immunization, [place]-19 Years 10073 Given 1994 (IPV) Inactive Poliovirus Vaccine 16646 Given 1994 DTP Immunization 48922 Given 1994 Hepatitis B Immunization, [place]-19 Years 81439 Given 1994 (IPV) Inactive Poliovirus Vaccine 60334 Given 1994 DTP Immunization Vital Signs Date Vital Result Comment 02/08/2018 Heart Rate 132 /min Body Temperature 97.4 F O2 % BldC Oximetry 98 % 11/26/2017 BP Systolic 102 mmHg BP Diastolic 70 mmHg Heart Rate 84 /min Body Temperature 98.1 F Height 68 inches 5'8" measured 02/03/16 Weight 138.00 lb BMI (Body Mass Index) 21.0 kg/m2 10/05/2017 BP Systolic 120 mmHg BP Diastolic 64 mmHg Heart Rate 96 /min Body Temperature 97.9 F Height 68 inches 5'8" measured 02/03/16 Weight 138.50 lb BMI (Body Mass Index) 21.1 kg/m2 07/06/2017 BP Systolic 110 mmHg BP Diastolic 70 mmHg Heart Rate 68 /min Body Temperature 98.4 F Respiratory Rate 18 /min Height 68 inches 5'8" measured 02/03/16 Weight 143.00 lb BMI (Body Mass Index) 21.7 kg/m2 06/02/2017 BP Systolic 110 mmHg BP Diastolic 70 mmHg Heart Rate 68 /min Respiratory Rate 18 /min Height 68 inches 5'8" measured 02/03/16 Weight 142.00 lb BMI (Body Mass Index) 21.6 kg/m2 05/03/2017 BP Systolic 92 mmHg BP Diastolic 70 mmHg Heart Rate 80 /min Respiratory Rate 16 /min Height 68 inches 5'8" measured 02/03/16 Weight 143.00 lb BMI (Body Mass Index) 21.7 kg/m2 04/14/2017 BP Systolic 110 mmHg BP Diastolic 70 mmHg Heart Rate 80 /min Body Temperature 98.0 F Respiratory Rate 18 /min Height 68 inches 5'8" measured 02/03/16 Weight 145.00 lb BMI (Body Mass Index) 22.0 kg/m2 03/01/2017 BP Systolic 100 mmHg BP Diastolic 60 mmHg Heart Rate 72 /min Body Temperature 98.8 F Respiratory Rate 16 /min Height 68 inches 5'8" measured 02/03/16 Weight 146.00 lb BMI (Body Mass Index) 22.2 kg/m2 02/17/2017 BP Systolic 114 mmHg BP Diastolic 64 mmHg Heart Rate 66 /min Body Temperature 98.8 F Respiratory Rate 16 /min Height 68 inches 5'8" measured 02/03/16 Weight 151.25 lb BMI (Body Mass Index) 23.0 kg/m2 12/02/2016 BP Systolic 120 mmHg BP Diastolic 70 mmHg Heart Rate 68 /min Body Temperature 98.1 F Respiratory Rate 18 /min Height 68 inches 5'8" measured 02/03/16 Weight 159.00 lb BMI (Body Mass Index) 24.2 kg/m2 10/07/2016 BP Systolic 110 mmHg BP Diastolic 70 mmHg Heart Rate 100 /min Body Temperature 98.8 F Respiratory Rate 18 /min Height 68 inches 5'8" measured 02/03/16 Weight 157.00 lb BMI (Body Mass Index) 23.9 kg/m2 09/14/2016 BP Systolic 114 mmHg BP Diastolic 72 mmHg Heart Rate 90 /min Body Temperature 98.1 F Respiratory Rate 16 /min Height 68 inches 5'8" measured 02/03/16 Weight 157.38 lb BMI (Body Mass Index) 23.9 kg/m2 08/26/2016 BP Systolic 100 mmHg BP Diastolic 60 mmHg Heart Rate 72 /min Body Temperature 98.8 F Respiratory Rate 18 /min Height 68 inches 5'8" measured 02/03/16 Weight 150.00 lb BMI (Body Mass Index) 22.8 kg/m2 08/05/2016 BP Systolic 100 mmHg BP Diastolic 64 mmHg Heart Rate 88 /min Body Temperature 98.1 F Respiratory Rate 18 /min Height 68 inches 5'8" measured 02/03/16 Weight 150.00 lb BMI (Body Mass Index) 22.8 kg/m2 07/27/2016 BP Systolic 100 mmHg BP Diastolic 60 mmHg Heart Rate 84 /min Body Temperature 99.5 F Respiratory Rate 16 /min Height 68 inches 5'8" measured 02/03/16 Weight 151.12 lb BMI (Body Mass Index) 23.0 kg/m2 06/26/2016 BP Systolic 100 mmHg BP Diastolic 70 mmHg Heart Rate 72 /min Body Temperature 98.8 F Respiratory Rate 16 /min Height 68 inches 5'8" measured 02/03/16 Weight 149.00 lb BMI (Body Mass Index) 22.7 kg/m2 05/11/2016 BP Systolic 120 mmHg BP Diastolic 80 mmHg Heart Rate 72 /min Body Temperature 98.8 F Respiratory Rate 16 /min Height 68 inches 5'8" measured 02/03/16 Weight 151.12 lb BMI (Body Mass Index) 23.0 kg/m2 02/03/2016 BP Systolic 98 mmHg BP Diastolic 60 mmHg Heart Rate 72 /min Body Temperature 98.8 F Respiratory Rate 16 /min Height 68 inches 5'8" measured 02/03/16 Weight 158.38 lb BMI (Body Mass Index) 24.1 kg/m2 11/04/2015 BP Systolic 98 mmHg BP Diastolic 68 mmHg Heart Rate 78 /min Body Temperature 98.6 F Respiratory Rate 16 /min Height 68 inches 5'8" Weight 165.00 lb BMI (Body Mass Index) 25.1 kg/m2 09/30/2015 BP Systolic 110 mmHg BP Diastolic 72 mmHg Heart Rate 72 /min Body Temperature 98.1 F Respiratory Rate 16 /min Height 68 inches 5'8" Weight 155.00 lb 09/30/15/ BMI (Body Mass Index) 23.6 kg/m2 08/23/2015 BP Systolic 120 mmHg BP Diastolic 70 mmHg Heart Rate 68 /min Body Temperature 97.5 F Height 68 inches 5'8" Weight 155.00 lb BMI (Body Mass Index) 23.6 kg/m2 04/10/2015 BP Systolic 100 mmHg BP Diastolic 70 mmHg Heart Rate 68 /min Body Temperature 98.2 F Respiratory Rate 18 /min Height 68 inches 5'8" Weight 147.00 lb BMI (Body Mass Index) 22.3 kg/m2 02/04/2015 BP Systolic 116 mmHg BP Diastolic 78 mmHg Heart Rate 78 /min Body Temperature 98.2 F Respiratory Rate 16 /min Height 68 inches 5'8" Weight 144.38 lb BMI (Body Mass Index) 21.9 kg/m2 01/14/2015 BP Systolic 102 mmHg BP Diastolic 74 mmHg Heart Rate 72 /min Body Temperature 97.3 F Respiratory Rate 16 /min Height 68 inches 5'8" Weight 148.50 lb BMI (Body Mass Index) 22.6 kg/m2 11/12/2014 BP Systolic 100 mmHg BP Diastolic 60 mmHg Heart Rate 60 /min Body Temperature 97.7 F Respiratory Rate 16 /min Height 68 inches 5'8" Weight 162.12 lb BMI (Body Mass Index) 24.6 kg/m2 10/08/2014 BP Systolic 114 mmHg BP Diastolic 66 mmHg Heart Rate 60 /min Body Temperature 97.7 F Respiratory Rate 16 /min Height 68 inches 5'8" Weight 165.25 lb BMI (Body Mass Index) 25.1 kg/m2 08/27/2014 BP Systolic 104 mmHg BP Diastolic 72 mmHg Heart Rate 60 /min Body Temperature 98.5 F Respiratory Rate 16 /min Height 68 inches 5'8" Weight 170.50 lb BMI (Body Mass Index) 25.9 kg/m2 08/10/2014 BP Systolic 108 mmHg BP Diastolic 70 mmHg Heart Rate 66 /min Body Temperature 97.5 F Respiratory Rate 16 /min Height 68 inches 5'8" 07/24/2014 BP Systolic 120 mmHg BP Diastolic 76 mmHg Heart Rate 60 /min Body Temperature 96.9 F Height 68 inches 5'8" Weight 180.25 lb BMI (Body Mass Index) 27.4 kg/m2 04/02/2014 BP Systolic 112 mmHg BP Diastolic 78 mmHg Heart Rate 72 /min Body Temperature 97.6 F Respiratory Rate 16 /min Height 68 inches 5'8" Weight 192.12 lb BMI (Body Mass Index) 29.2 kg/m2 06/20/2013 BP Systolic 120 mmHg BP Diastolic 80 mmHg Heart Rate 72 /min Body Temperature 98.4 F Respiratory Rate 16 /min Height 68 inches 5'8" Weight 166.00 lb BMI (Body Mass Index) 25.2 kg/m2 01/27/2013 BP Systolic 116 mmHg BP Diastolic 70 mmHg Heart Rate 64 /min Body Temperature 98.0 F Height 68 inches 5'8" Weight 158.00 lb BMI (Body Mass Index) 24.0 kg/m2 Body Mass Index Percentile 70 % Weight Percentile 61st Height Percentile 30 % 10/04/2012 BP Systolic 100 mmHg BP Diastolic 60 mmHg Heart Rate 64 /min Body Temperature 98.2 F Height 68 inches 5'8" Weight 147.00 lb BMI (Body Mass Index) 22.3 kg/m2 Body Mass Index Percentile 54 % Weight Percentile 45th Right Visual Acuity Distance 20/20 Corrected Left Visual Acuity Distance 20/20 08/09/2012 BP Systolic 90 mmHg BP Diastolic 60 mmHg Heart Rate 80 /min Body Temperature 97.7 F Height 68 inches 5'8" Weight 154.00 lb BMI (Body Mass Index) 23.4 kg/m2 Body Mass Index Percentile 67 % Weight Percentile 58th Height Percentile 31 % 04/14/2012 BP Systolic 96 mmHg BP Diastolic 70 mmHg Heart Rate 80 /min Body Temperature 98.0 F Height 68 inches 5'8" Weight 155.00 lb BMI (Body Mass Index) 23.6 kg/m2 Body Mass Index Percentile 71 % Weight Percentile 62nd Height Percentile 32 % 02/26/2012 BP Systolic 102 mmHg BP Diastolic 82 mmHg Heart Rate 72 /min Body Temperature 97.9 F Height 68 inches 5'8" Weight 157.00 lb BMI (Body Mass Index) 23.9 kg/m2 Body Mass Index Percentile 74 % Weight Percentile 65th Height Percentile 32 % 01/27/2012 BP Systolic 110 mmHg BP Diastolic 70 mmHg Heart Rate 72 /min Respiratory Rate 14 /min Height 68 inches 5'8" Weight 154.00 lb BMI (Body Mass Index) 23.4 kg/m2 Body Mass Index Percentile 71 % Weight Percentile 62nd Height Percentile 33 % 12/31/2011 BP Systolic 90 mmHg BP Diastolic 62 mmHg Heart Rate 60 /min Respiratory Rate 15 /min Height 68 inches 5'8" Weight 154.00 lb BMI (Body Mass Index) 23.4 kg/m2 Body Mass Index Percentile 71 % Weight Percentile 63rd Height Percentile 33 % 12/10/2011 BP Systolic 100 mmHg BP Diastolic 58 mmHg Heart Rate 76 /min Body Temperature 97.1 F Respiratory Rate 20 /min Height 68 inches 5'8" Weight 155.00 lb BMI (Body Mass Index) 23.6 kg/m2 Body Mass Index Percentile 73 % Weight Percentile 64th Height Percentile 33 % 09/16/2011 BP Systolic 126 mmHg BP Diastolic 70 mmHg Heart Rate 76 /min Body Temperature 97.3 F Height 68 inches 5'8" Weight 151.00 lb BMI (Body Mass Index) 23.0 kg/m2 Body Mass Index Percentile 69 % Weight Percentile 61st Height Percentile 34 % 08/31/2011 BP Systolic 110 mmHg BP Diastolic 60 mmHg Heart Rate 80 /min Body Temperature 98.3 F Respiratory Rate 16 /min Height 68 inches 5'8" Weight 149.00 lb BMI (Body Mass Index) 22.7 kg/m2 Body Mass Index Percentile 66 % Weight Percentile 58th Height Percentile 35 % Right Visual Acuity Distance 20/20 corrected Left Visual Acuity Distance 20/20 corrected 08/28/2011 BP Systolic 110 mmHg BP Diastolic 60 mmHg Heart Rate 68 /min Body Temperature 97.0 F Height 67 inches 5'7" Weight 150.00 lb BMI (Body Mass Index) 23.5 kg/m2 Body Mass Index Percentile 74 % Weight Percentile 60th Height Percentile 23 % 08/04/2011 BP Systolic 110 mmHg BP Diastolic 70 mmHg Heart Rate 64 /min Body Temperature 97.4 F Respiratory Rate 16 /min Height 67 inches 5'7" Weight 150.00 lb BMI (Body Mass Index) 23.5 kg/m2 Body Mass Index Percentile 74 % Weight Percentile 60th Height Percentile 23 % 07/27/2011 BP Systolic 90 mmHg BP Diastolic 56 mmHg Heart Rate 78 /min Body Temperature 97.8 F Respiratory Rate 20 /min Height 66.75 inches 5'6.75" measured Weight 148.00 lb BMI (Body Mass Index) 23.4 kg/m2 Body Mass Index Percentile 73 % Weight Percentile 58th Height Percentile 21 % 06/24/2011 BP Systolic 92 mmHg BP Diastolic 60 mmHg Heart Rate 66 /min Height 66.75 inches 5'6.75" measured Weight 147.00 lb BMI (Body Mass Index) 23.2 kg/m2 Body Mass Index Percentile 73 % Weight Percentile 57th Height Percentile 21 % 03/04/2011 BP Systolic 100 mmHg BP Diastolic 60 mmHg Heart Rate 68 /min Height 66.75 inches 5'6.75" measured Weight 154.00 lb BMI (Body Mass Index) 24.3 kg/m2 Body Mass Index Percentile 82 % Weight Percentile 70th Height Percentile 23 % 12/19/2010 BP Systolic 100 mmHg BP Diastolic 58 mmHg Heart Rate 110 /min Body Temperature 101.5 F Respiratory Rate 20 /min O2 % BldC Oximetry 96 % Height 66.75 inches 5'6.75" measured Weight 161.00 lb BMI (Body Mass Index) 25.4 kg/m2 Body Mass Index Percentile 88 % Weight Percentile 79th Height Percentile 25 % 11/11/2010 BP Systolic 110 mmHg BP Diastolic 70 mmHg Heart Rate 72 /min Body Temperature 98.9 F Respiratory Rate 15 /min Height 66.75 inches 5'6.75" measured Weight 166.00 lb BMI (Body Mass Index) 26.2 kg/m2 Body Mass Index Percentile 91 % Weight Percentile 84th Height Percentile 26 % 11/03/2010 BP Systolic 98 mmHg BP Diastolic 60 mmHg Heart Rate 60 /min Body Temperature 97.9 F Height 66.75 inches 5'6.75" measured Weight 166.00 lb BMI (Body Mass Index) 26.2 kg/m2 Body Mass Index Percentile 91 % Weight Percentile 84th Height Percentile 26 % 08/14/2010 BP Systolic 96 mmHg BP Diastolic 70 mmHg Heart Rate 78 /min Body Temperature 97.1 F Height 66.75 inches 5'6.75" measured Weight 163.00 lb BMI (Body Mass Index) 25.7 kg/m2 Body Mass Index Percentile 90 % Weight Percentile 83rd Height Percentile 28 % 07/25/2010 BP Systolic 116 mmHg BP Diastolic 66 mmHg Heart Rate 78 /min Body Temperature 98.8 F Height 66.75 inches 5'6.75" measured Weight 161.00 lb BMI (Body Mass Index) 25.4 kg/m2 Body Mass Index Percentile 89 % Weight Percentile 82nd Height Percentile 29 % Right Visual Acuity Distance 20/20 corrected Left Visual Acuity Distance 20/20 corrected 04/30/2010 BP Systolic 100 mmHg BP Diastolic 60 mmHg Heart Rate 80 /min Body Temperature 98.1 F Respiratory Rate 16 /min Weight 150.00 lb Weight Percentile 74th 03/03/2010 BP Systolic 104 mmHg BP Diastolic 60 mmHg Heart Rate 78 /min Body Temperature 98.9 F Height 66 inches 5'6" measured Weight 154.00 lb BMI (Body Mass Index) 24.9 kg/m2 Body Mass Index Percentile 88 % Weight Percentile 80th Height Percentile 26 % 01/02/2010 BP Systolic 110 mmHg BP Diastolic 62 mmHg Heart Rate 82 /min Body Temperature 98.7 F Weight 158.00 lb Weight Percentile 85th 12/17/2009 BP Systolic 114 mmHg BP Diastolic 60 mmHg Heart Rate 94 /min Body Temperature 98.2 F Weight 147.00 lb Weight Percentile 75th 11/27/2009 BP Systolic 102 mmHg BP Diastolic 60 mmHg Heart Rate 84 /min Body Temperature 97.5 F Respiratory Rate 14 /min Height 66 inches 5'6" Weight 140.00 lb BMI (Body Mass Index) 22.6 kg/m2 Body Mass Index Percentile 77 % Weight Percentile 67th Height Percentile 29 % 08/12/2009 BP Systolic 104 mmHg BP Diastolic 60 mmHg Heart Rate 72 /min Body Temperature 97.6 F Height 63.5 inches 5'3.50" Weight 139.00 lb BMI (Body Mass Index) 24.2 kg/m2 Body Mass Index Percentile 92 % Weight Percentile 71st Height Percentile 11 % 06/03/2009 BP Systolic 90 mmHg BP Diastolic 60 mmHg Heart Rate 72 /min Body Temperature 98.5 F Height 63.5 inches 5'3.50" Weight 128.00 lb BMI (Body Mass Index) 22.3 kg/m2 Body Mass Index Percentile 81 % Weight Percentile 57th Height Percentile 13 % 01/22/2009 BP Systolic 100 mmHg BP Diastolic 60 mmHg Heart Rate 80 /min Body Temperature 97.3 F Respiratory Rate 18 /min Weight 110.00 lb Weight Percentile 33rd 01/09/2009 BP Systolic 92 mmHg BP Diastolic 60 mmHg Heart Rate 66 /min Body Temperature 97.4 F Weight 107.00 lb Weight Percentile 28th 12/04/2008 BP Systolic 90 mmHg BP Diastolic 64 mmHg Heart Rate 60 /min Body Temperature 97.7 F 11/24/2008 BP Systolic 94 mmHg BP Diastolic 68 mmHg Heart Rate 72 /min Body Temperature 97.4 F Weight 108.00 lb Weight Percentile 32nd 11/06/2008 BP Systolic 108 mmHg BP Diastolic 72 mmHg Heart Rate 80 /min Body Temperature 97.8 F Weight 106.00 lb Weight Percentile 10/02/2008 BP Systolic 90 mmHg BP Diastolic 60 mmHg Heart Rate 80 /min Body Temperature 97.9 F Weight 105.00 lb Weight Percentile 09/25/2008 BP Systolic 90 mmHg BP Diastolic 60 mmHg Heart Rate 80 /min Body Temperature 98.7 F Weight 108.00 lb Weight Percentile 08/10/2008 BP Systolic 106 mmHg BP Diastolic 60 mmHg Heart Rate 72 /min Body Temperature 97.5 F Weight 105.00 lb Weight Percentile 06/28/2008 BP Systolic 106 mmHg BP Diastolic 72 mmHg Heart Rate 80 /min Height 59.5 inches 4'11.50" Weight 98.00 lb BMI (Body Mass Index) 19.5 kg/m2 Body Mass Index Percentile 54 % Weight Percentile 23rd Height Percentile 5 % Right Visual Acuity Distance 20/20 Left Visual Acuity Distance 20/20 06/26/2008 Heart Rate 74 /min Body Temperature 97.5 F Weight 101.00 lb Weight Percentile 04/09/2008 BP Systolic 100 mmHg BP Diastolic 70 mmHg Heart Rate 80 /min Body Temperature 98.2 F Weight 95.00 lb Weight Percentile 03/29/2008 BP Systolic 92 mmHg BP Diastolic 56 mmHg Heart Rate 88 /min Body Temperature 98.4 F Respiratory Rate 16 /min Weight 97.00 lb Weight Percentile 10/17/2007 BP Systolic 94 mmHg BP Diastolic 66 mmHg Heart Rate 66 /min Body Temperature 98.4 F Weight 89.50 lb Weight Percentile 09/05/2007 BP Systolic 100 mmHg BP Diastolic 66 mmHg Heart Rate 72 /min Body Temperature 98.2 F Weight 88.00 lb Weight Percentile 08/18/2007 BP Systolic 110 mmHg BP Diastolic 70 mmHg Heart Rate 88 /min Body Temperature 97.7 F Weight 89.00 lb Weight Percentile 08/03/2007 BP Systolic 102 mmHg BP Diastolic 62 mmHg Heart Rate 82 /min Weight 89.00 lb Weight Percentile 07/20/2007 Heart Rate 104 /min Body Temperature 98.6 F Weight 90.00 lb Weight Percentile 06/16/2007 BP Systolic 98 mmHg BP Diastolic 58 mmHg Heart Rate 80 /min Weight 86.00 lb Weight Percentile 04/13/2007 BP Systolic 108 mmHg BP Diastolic 60 mmHg Heart Rate 72 /min Body Temperature 97.5 F Weight 85.00 lb Weight Percentile 02/12/2007 BP Systolic 102 mmHg BP Diastolic 62 mmHg Heart Rate 84 /min Body Temperature 99.6 F Weight 85.00 lb Weight Percentile 11/17/2006 BP Systolic 116 mmHg BP Diastolic 80 mmHg Heart Rate 88 /min Height 56 inches 4'8" Weight 83.00 lb BMI (Body Mass Index) 18.6 kg/m2 Body Mass Index Percentile 59 % Weight Percentile 27th Height Percentile 10 % Results Test Date Test Result H/L Range Note Comp Metabolic Panel 01/26/2018 Sodium 136 mmol/L Low 139-145 Potassium 3.9 mmol/L 3.5-5.0 Chloride 100 mmol/L Low 101-111 Co2 Carbon Dioxide 23 mmol/L 22-32 Anion Gap 13 mmol/L High 2-11 Glucose 91 mg/dL 70-100 Blood Urea Nitrogen 4 mg/dL Low 6-24 Creatinine 0.89 mg/dL 0.67-1.17 BUN/Creatinine Ratio 4.5 Low 8-20 Calcium 10.2 mg/dL 8.6-10.3 Total Protein 7.9 g/dL 6.4-8.9 Albumin 5.0 g/dL 3.2-5.2 Globulin 2.9 g/dL 2-4 Albumin/Globulin Ratio 1.7 1-3 Total Bilirubin 0.90 mg/dL 0.2-1.0 Alkaline Phosphatase 71 U/L 34-104 Alt 15 U/L 7-52 Ast 21 U/L 13-39 Egfr Non- 105.9 >60 Egfr 136.2 >60 1 Laboratory test finding 01/26/2018 C Reactive Protein < 1.00 mg/L &lt ; 5.00 2 CBC Auto Diff 01/26/2018 White Blood Count 5.8 10^3/uL 3.5-10.8 Red Blood Count 5.48 10^6/uL High 4.0-5.4 Hemoglobin 16.7 g/dL 14.0-18.0 Hematocrit 48 % 42-52 Mean Corpuscular Volume 87 fL 80-94 Mean Corpuscular Hemoglobin 31 pg 27-31 Mean Corpuscular HGB Conc 35 g/dL 31-36 Red Cell Distribution Width 13 % 10.5-15 Platelet Count 311 10^3/uL 150-450 Mean Platelet Volume 7.5 um3 7.4-10.4 Abs Neutrophils 2.2 10^3/uL 1.5-7.7 Abs Lymphocytes 3.0 10^3/uL 1.0-4.8 Abs Monocytes 0.5 10^3/uL 0-0.8 Abs Eosinophils 0.1 10^3/uL 0-0.6 Abs Basophils 0 10^3/uL 0-0.2 Abs Nucleated RBC 0 10^3/uL Granulocyte % 37.1 % Low 38-83 Lymphocyte % 51.8 % High 25-47 Monocyte % 8.6 % High 0-7 Eosinophil % 1.9 % 0-6 Basophil % 0.6 % 0-2 Nucleated Red Blood Cells % 0.1 Laboratory test finding 01/26/2018 Erythrocyte Sed Rate 3 mm/Hr 0-14 Laboratory test finding 10/05/2017 Magnesium, Serum 2.3 mEq/L High 1.2- 2.1 Basic Metabolic Profile 10/05/2017 Sodium 141 mEq/L 134-149 Potassium 4.2 mEq/L 3.6-5.5 Chloride 104 mEq/L 94-112 Carbon Dioxide 25 mEq/L 21-32 Glucose 91 mg/dL 70-105 BUN 6 mg/dL 6-26 Creatinine 0.8 mg/dL 0.6-1.4 BUN/Creat Ratio 7.5 CALC Low 8.0-36.0 Calcium 9.7 mg/dL 8.6-10.2 GFR Non- >60 ml/min/1.73m^ >=60 GFR >60 ml/min/1.73m^ >=60 CBC Auto Diff 08/06/2017 White Blood Count 10.6 10^3/uL 3.5-10.8 Red Blood Count 4.97 10^6/uL 4.0-5.4 Hemoglobin 15.0 g/dL 14.0-18.0 Hematocrit 43 % 42-52 Mean Corpuscular Volume 85 fL 80-94 Mean Corpuscular Hemoglobin 30 pg 27-31 Mean Corpuscular HGB Conc 35 g/dL 31-36 Red Cell Distribution Width 14 % 10.5-15 Platelet Count 374 10^3/uL 150-450 Mean Platelet Volume 8 um3 7.4-10.4 Abs Neutrophils 3.0 10^3/uL 1.5-7.7 Abs Lymphocytes 6.4 10^3/uL High 1.0-4.8 Abs Monocytes 0.8 10^3/uL 0-0.8 Abs Eosinophils 0.3 10^3/uL 0-0.6 Abs Basophils 0.1 10^3/uL 0-0.2 Abs Nucleated RBC 0.01 10^3/uL Granulocyte % 28.3 % Low 38-83 Lymphocyte % 60.4 % High 25-47 Monocyte % 7.4 % 1-9 Eosinophil % 3.3 % 0-6 Basophil % 0.6 % 0-2 Nucleated Red Blood Cells % 0.1 Laboratory test finding 08/06/2017 TSH (Thyroid Stim Horm) 4.29 mcIU/mL 0.34-5.60 Pathologist Review (SEE NOTE) 3 CKMB 08/06/2017 CKMB ng/mL 4.7 ng/mL 0.6-6.3 Laboratory test finding 08/06/2017 Creatine Kinase(CK) 234 U/L High 10- 223 C Reactive Protein < 1.00 mg/L < 5.00 4 Troponin I 0.00 ng/mL <0.04 Urinalysis Profile 08/06/2017 Urine Color Yellow Urine Appearance Clear Urine Specific [place] 1.003 Low 1.010-1.030 Urine pH 8.0 5-9 Urine Urobilinogen Negative Negative Urine Ketones Trace Negative Urine Protein Negative Negative Urine Leukocytes Negative Negative Urine Blood Negative Negative Urine Nitrite Negative Negative Urine Bilirubin Negative Negative Urine Glucose Negative Negative Laboratory test finding 08/06/2017 B-Type Natriuretic 7 pg/mL 5 Peptide BNP Inr/Protime 08/06/2017 Inr 1.00 0.89-1.11 Comp Metabolic Panel 08/06/2017 Sodium 137 mmol/L 133-145 Potassium 3.3 mmol/L Low 3.5-5.0 Chloride 102 mmol/L 101-111 Co2 Carbon Dioxide 15 mmol/L Low 22-32 Anion Gap 20 mmol/L High 2-11 Glucose 111 mg/dL High 70-100 Blood Urea Nitrogen 5 mg/dL Low 6-24 Creatinine 1.03 mg/dL 0.67-1.17 BUN/Creatinine Ratio 4.9 Low 8-20 Calcium 9.8 mg/dL 8.6-10.3 Total Protein 7.4 g/dL 6.4-8.9 Albumin 4.8 g/dL 3.2-5.2 Globulin 2.6 g/dL 2-4 Albumin/Globulin Ratio 1.8 1-3 Total Bilirubin 0.50 mg/dL 0.2-1.0 Alkaline Phosphatase 67 U/L 34-104 Alt 15 U/L 7-52 Ast 22 U/L 13-39 Egfr Non- 89.5 >60 Egfr 115.1 >60 6 Laboratory test finding 08/06/2017 Lactic Acid 7.7 mmol/L High 0.5-2.0 7 Acetaminophen < 15 g/mL 8 Alcohol 85 mg/dL High <10 Salicylate < 2.50 mg/dL <30 Urine Drug SCR ED 08/06/2017 Amphetamine Ur Screen None Detected None Detect & [facility] Barbiturates Urine Screen None Detected None Detect Benzodiazepine Urine Screen None Detected None Detect Urine Cannabinoids Screen Presumptive Posi <SEE NOTE> None Detect 9 Urine Cocaine Screen None Detected None Detect Urine Opiates Screen None Detected None Detect Urine Phencyclidine Screen None Detected None Detect 10 Laboratory test 08/06/2017 D Dimer Quantitative < 200 ng/mL Less Than 230 11 finding CBC Auto Diff 04/22/2017 White Blood Count 8.1 10^3/uL 3.5-10.8 Red Blood Count 5.18 10^6/uL 4.0-5.4 Hemoglobin 14.8 g/dL 14.0-18.0 Hematocrit 45 % 42-52 Mean Corpuscular Volume 87 fL 80-94 Mean Corpuscular Hemoglobin 29 pg 27-31 Mean Corpuscular HGB Conc 33 g/dL 31-36 Red Cell Distribution Width 14 % 10.5-15 Platelet Count 318 10^3/uL 150-450 Mean Platelet Volume 8 um3 7.4-10.4 Abs Neutrophils 4.9 10^3/uL 1.5-7.7 Abs Lymphocytes 2.3 10^3/uL 1.0-4.8 Abs Monocytes 0.9 10^3/uL High 0-0.8 Abs Eosinophils 0 10^3/uL 0-0.6 Abs Basophils 0 10^3/uL 0-0.2 Abs Nucleated RBC 0.01 10^3/uL Granulocyte % 60.7 % 38-83 Lymphocyte % 28.0 % 25-47 Monocyte % 10.6 % High 1-9 Eosinophil % 0.5 % 0-6 Basophil % 0.2 % 0-2 Nucleated Red Blood Cells % 0.1 Comp Metabolic Panel 04/22/2017 Sodium 136 mmol/L 133-145 Potassium 3.9 mmol/L 3.5-5.0 Chloride 104 mmol/L 101-111 Co2 Carbon Dioxide 22 mmol/L 22-32 Anion Gap 10 mmol/L 2-11 Glucose 110 mg/dL High 70-100 Blood Urea Nitrogen 6 mg/dL 6-24 Creatinine 0.90 mg/dL 0.67-1.17 BUN/Creatinine Ratio 6.7 Low 8-20 Calcium 9.7 mg/dL 8.6-10.3 Total Protein 7.6 g/dL 6.4-8.9 Albumin 4.9 g/dL 3.2-5.2 Globulin 2.7 g/dL 2-4 Albumin/Globulin Ratio 1.8 1-3 Total Bilirubin 1.00 mg/dL 0.2-1.0 Alkaline Phosphatase 54 U/L 34-104 Alt 44 U/L 7-52 Ast 90 U/L High 13-39 Egfr Non- 105.5 >60 Egfr 135.7 >60 12 Laboratory test finding 04/22/2017 TSH (Thyroid Stim Horm) 1.21 mcIU/mL 0.34-5.60 Acetaminophen < 15 g/mL 13 Alcohol < 10 mg/dL <10 Salicylate < 2.50 mg/dL <30 Urinalysis Profile 04/22/2017 Urine Color Yellow Urine Appearance Clear Urine Specific [place] 1.008 Low 1.010-1.030 Urine pH 6.0 5-9 Urine Urobilinogen Negative Negative Urine Ketones 1+ Negative Urine Protein Negative Negative Urine Leukocytes Negative Negative Urine Blood Negative Negative Urine Nitrite Negative Negative Urine Bilirubin Negative Negative Urine Glucose Negative Negative Urine Drug SCR ED 04/22/2017 Amphetamine Ur Screen None Detected None Detect & Pain Clinic Barbiturates Urine Screen None Detected None Detect Benzodiazepine Urine Screen None Detected None Detect Urine Cannabinoids Screen Presumptive Posi <SEE NOTE> None Detect 14 Urine Cocaine Screen None Detected None Detect Urine Opiates Screen None Detected None Detect Urine Phencyclidine Screen None Detected None Detect 15 Laboratory test finding 04/04/2017 Acetaminophen < 15 g/mL 16 Alcohol < 10 mg/dL <10 Salicylate < 2.50 mg/dL <30 TSH (Thyroid Stim Horm) 1.85 mcIU/mL 0.34-5.60 Urinalysis Profile 04/04/2017 Urine Color Colorless Urine Appearance Clear Urine Specific [place] 1.001 Low 1.010-1.030 Urine pH 8.0 5-9 Urine Urobilinogen Negative Negative Urine Ketones Negative Negative Urine Protein Negative Negative Urine Leukocytes Negative Negative Urine Blood Negative Negative Urine Nitrite Negative Negative Urine Bilirubin Negative Negative Urine Glucose Negative Negative CBC Auto Diff 04/04/2017 White Blood Count 9.4 10^3/uL 3.5-10.8 Red Blood Count 5.11 10^6/uL 4.0-5.4 Hemoglobin 15.0 g/dL 14.0-18.0 Hematocrit 44 % 42-52 Mean Corpuscular Volume 85 fL 80-94 Mean Corpuscular Hemoglobin 29 pg 27-31 Mean Corpuscular HGB Conc 34 g/dL 31-36 Red Cell Distribution Width 13 % 10.5-15 Platelet Count 300 10^3/uL 150-450 Mean Platelet Volume 8 um3 7.4-10.4 Abs Neutrophils 5.8 10^3/uL 1.5-7.7 Abs Lymphocytes 2.8 10^3/uL 1.0-4.8 Abs Monocytes 0.7 10^3/uL 0-0.8 Abs Eosinophils 0.1 10^3/uL 0-0.6 Abs Basophils 0 10^3/uL 0-0.2 Abs Nucleated RBC 0 10^3/uL Granulocyte % 61.2 % 38-83 Lymphocyte % 29.6 % 25-47 Monocyte % 7.5 % 1-9 Eosinophil % 1.3 % 0-6 Basophil % 0.4 % 0-2 Nucleated Red Blood Cells % 0 Urine Drug SCR ED 04/04/2017 Amphetamine Ur Screen None Detected None Detect & Pain Clinic Barbiturates Urine Screen None Detected None Detect Benzodiazepine Urine Screen None Detected None Detect Urine Cannabinoids Screen None Detected None Detect Urine Cocaine Screen None Detected None Detect Urine Opiates Screen None Detected None Detect Urine Phencyclidine Screen None Detected None Detect 17 Comp Metabolic Panel 04/04/2017 Sodium 133 mmol/L 133-145 Potassium 3.9 mmol/L 3.5-5.0 Chloride 103 mmol/L 101-111 Co2 Carbon Dioxide 27 mmol/L 22-32 Anion Gap 3 mmol/L 2-11 Glucose 87 mg/dL 70-100 Blood Urea Nitrogen 9 mg/dL 6-24 Creatinine 1.10 mg/dL 0.67-1.17 BUN/Creatinine Ratio 8.2 8-20 Calcium 9.8 mg/dL 8.6-10.3 Total Protein 7.4 g/dL 6.4-8.9 Albumin 4.7 g/dL 3.2-5.2 Globulin 2.7 g/dL 2-4 Albumin/Globulin Ratio 1.7 1-3 Total Bilirubin 0.50 mg/dL 0.2-1.0 Alkaline Phosphatase 71 U/L 34-104 Alt 16 U/L 7-52 Ast 24 U/L 13-39 Egfr Non- 83.7 >60 Egfr 107.6 >60 18 CBC Auto Diff 11/23/2016 White Blood Count 9.4 10^3/uL 3.5-10.8 Red Blood Count 5.59 10^6/uL High 4.0-5.4 Hemoglobin 16.1 g/dL 14.0-18.0 Hematocrit 48 % 42-52 Mean Corpuscular Volume 86 fL 80-94 Mean Corpuscular Hemoglobin 29 pg 27-31 Mean Corpuscular HGB Conc 34 g/dL 31-36 Red Cell Distribution Width 14 % 10.5-15 Platelet Count 283 10^3/uL 150-450 Mean Platelet Volume 9 um3 7.4-10.4 Abs Neutrophils 6.3 10^3/uL 1.5-7.7 Abs Lymphocytes 2.3 10^3/uL 1.0-4.8 Abs Monocytes 0.7 10^3/uL 0-0.8 Abs Eosinophils 0 10^3/uL 0-0.6 Abs Basophils 0 10^3/uL 0-0.2 Abs Nucleated RBC 0.01 10^3/uL Granulocyte % 67.2 % 38-83 Lymphocyte % 24.5 % Low 25-47 Monocyte % 7.8 % 1-9 Eosinophil % 0.3 % 0-6 Basophil % 0.2 % 0-2 Nucleated Red Blood Cells % 0.1 Inr/Protime 11/23/2016 Inr 1.06 0.89-1.11 Laboratory test finding 11/23/2016 Partial Thrombo Time 31.2 seconds 26.0 -36.3 PTT Comp Metabolic Panel 11/23/2016 Sodium 137 mmol/L 133-145 Potassium 3.8 mmol/L 3.5-5.0 Chloride 103 mmol/L 101-111 Co2 Carbon Dioxide 27 mmol/L 22-32 Anion Gap 7 mmol/L 2-11 Glucose 103 mg/dL High 70-100 Blood Urea Nitrogen 6 mg/dL 6-24 Creatinine 0.94 mg/dL 0.67-1.17 BUN/Creatinine Ratio 6.4 Low 8-20 Calcium 10.1 mg/dL 8.6-10.3 Total Protein 7.9 g/dL 6.4-8.9 Albumin 5.1 g/dL 3.2-5.2 Globulin 2.8 g/dL 2-4 Albumin/Globulin Ratio 1.8 1-3 Total Bilirubin 0.50 mg/dL 0.2-1.0 Alkaline Phosphatase 65 U/L 34-104 Alt 11 U/L 7-52 Ast 16 U/L 13-39 Egfr Non- 100.4 >60 Egfr 129.1 >60 19 MTHFR 09/28/2016 MTHFR, Dna Analysis See Comment: 20, 21 Additional Information: See Comment: 20, 22 References: See Comment: 20, 23 Laboratory test finding 08/26/2016 Glucose Serum 86 70-105 Laboratory test finding 08/09/2016 Inr/Protime 1.02 0.89-1.11 Partial Thrombo Time PTT 26.7 seconds 26.0-36.3 D Dimer Quantitative < 200 ng/mL Less Than 230 24 CBC Auto Diff 08/09/2016 White Blood Count 11.7 10^3/uL High 3.5-10.8 Red Blood Count 5.03 10^6/uL 4.0-5.4 Hemoglobin 14.3 g/dL 14.0-18.0 Hematocrit 43 % 42-52 Mean Corpuscular Volume 85 fL 80-94 Mean Corpuscular Hemoglobin 29 pg 27-31 Mean Corpuscular HGB Conc 34 g/dL 31-36 Red Cell Distribution Width 14 % 10.5-15 Platelet Count 480 10^3/uL High 150-450 Mean Platelet Volume 7 um3 Low 7.4-10.4 Abs Neutrophils 5.4 10^3/uL 1.5-7.7 Abs Lymphocytes 5.1 10^3/uL High 1.0-4.8 Abs Monocytes 0.9 10^3/uL High 0-0.8 Abs Eosinophils 0.2 10^3/uL 0-0.6 Abs Basophils 0 10^3/uL 0-0.2 Abs Nucleated RBC 0.01 10^3/uL Granulocyte % 46.5 % 38-83 Lymphocyte % 44.1 % 25-47 Monocyte % 7.5 % 1-9 Eosinophil % 1.6 % 0-6 Basophil % 0.3 % 0-2 Nucleated Red Blood Cells % 0 Laboratory test finding 08/09/2016 Acetaminophen < 15 g/mL 25 TSH (Thyroid Stim Horm) 1.83 mcIU/mL 0.34-5.60 B-Type Natriuretic Peptide BNP 11 pg/mL 26 Free T4 (Free Thyroxine) 0.87 ng/dL 0.61-1.12 T3 Total 1.00 ng/mL 0.87-1.78 Hemoglobin A1c (Glyco HGB) 5.6 % Less than 6.0 27 Alcohol < 10 mg/dL <10 Salicylate < 2.50 mg/dL <30 Laboratory test finding 08/09/2016 Lactic Acid 5.0 mmol/L High 0.5-2.0 28 Comp Metabolic Panel 08/09/2016 Sodium 133 mmol/L 133-145 Potassium 3.1 mmol/L Low 3.5-5.0 Chloride 98 mmol/L Low 101-111 Co2 Carbon Dioxide 21 mmol/L Low 22-32 Anion Gap 14 mmol/L High 2-11 Glucose 266 mg/dL High 70-100 Blood Urea Nitrogen 9 mg/dL 6-24 Creatinine 1.27 mg/dL High 0.67-1.17 BUN/Creatinine Ratio 7.1 Low 8-20 Calcium 9.5 mg/dL 8.6-10.3 Total Protein 7.4 g/dL 6.4-8.9 Albumin 4.6 g/dL 3.2-5.2 Globulin 2.8 g/dL 2-4 Albumin/Globulin Ratio 1.6 1-3 Total Bilirubin 0.50 mg/dL 0.2-1.0 Alkaline Phosphatase 70 U/L 34-104 Alt 16 U/L 7-52 Ast 19 U/L 13-39 Egfr Non- 70.9 >60 Egfr 91.2 >60 29 Laboratory test finding 08/09/2016 Magnesium 1.9 mg/dL 1.9-2.7 Lipase 12 U/L 11.0-82.0 Creatine Kinase(CK) 171 U/L 10-223 C Reactive Protein < 1.00 mg/L < 5.00 30 Troponin I 0.00 ng/mL <0.03 31 CKMB 08/09/2016 CKMB ng/mL 2.1 ng/mL 0.6-6.3 Laboratory test finding 02/03/2016 Ferritin, Serum 64 ng/mL 30-400 32 CBC Auto Diff 08/01/2015 White Blood Count 6.6 10^3/uL 4.8-10.8 Red Blood Count 5.10 10^6/uL 4.0-5.4 Hemoglobin 15.3 g/dL 14.0-18.0 Hematocrit 46 % 42-52 Mean Corpuscular Volume 89 fL 80-94 Mean Corpuscular Hemoglobin 30 pg 27-31 Mean Corpuscular HGB Conc 34 g/dL 31-36 Red Cell Distribution Width 14 % 10.5-15 Platelet Count 309 10^3/uL 150-450 Mean Platelet Volume 8 um3 7.4-10.4 Abs Neutrophils 3.8 10^3/uL 1.5-7.7 Abs Lymphocytes 2.1 10^3/uL 1.0-4.8 Abs Monocytes 0.6 10^3/uL 0-0.8 Abs Eosinophils 0.1 10^3/uL 0-0.6 Abs Basophils 0 10^3/uL 0-0.2 Abs Nucleated RBC 0 10^3/uL Granulocyte % 57.6 % 38-83 Lymphocyte % 31.4 % 25-47 Monocyte % 9.4 % High 1-9 Eosinophil % 1.2 % 0-6 Basophil % 0.4 % 0-2 Nucleated Red Blood Cells % 0 Laboratory test finding 08/01/2015 Acetaminophen < 15 g/mL 33 Alcohol < 10 mg/dL <10 Salicylate < 2.50 mg/dL <30 TSH (Thyroid Stim Horm) 1.22 ?IU/mL 0.34-5.60 Urinalysis Profile 08/01/2015 Urine Color Colorless Urine Appearance Clear Urine Specific [place] 1.002 Low 1.010-1.030 Urine pH 6.0 5-9 Urine Urobilinogen Negative Negative Urine Ketones Negative Negative Urine Protein Negative Negative Urine Leukocytes Negative Negative Urine Blood Negative Negative Urine Nitrite Negative Negative Urine Bilirubin Negative Negative Urine Glucose Negative Negative Urine Drug SCR ED 08/01/2015 Amphetamine Ur Screen None Detected None Detect & [facility] Barbiturates Urine Screen None Detected None Detect Benzodiazepine Urine Screen None Detected None Detect Urine Cannabinoids Screen None Detected None Detect Urine Cocaine Screen None Detected None Detect Urine Opiates Screen None Detected None Detect Urine Phencyclidine Screen None Detected None Detect 34 Comp Metabolic Panel 08/01/2015 Sodium 138 mmol/L 133-145 Potassium 3.8 mmol/L 3.5-5.0 Chloride 102 mmol/L 101-111 Co2 Carbon Dioxide 31 mmol/L 22-32 Anion Gap 5 mmol/L 2-11 Glucose 90 mg/dL 70-100 Blood Urea Nitrogen 5 mg/dL Low 6-24 Creatinine 1.02 mg/dL 0.67-1.17 BUN/Creatinine Ratio 4.9 Low 8-20 Calcium 9.8 mg/dL 8.6-10.3 Total Protein 7.6 g/dL 6.4-8.9 Albumin 5.1 g/dL 3.2-5.2 Globulin 2.5 g/dL 2-4 Albumin/Globulin Ratio 2.0 1-3 Total Bilirubin 0.50 mg/dL 0.2-1.0 Alkaline Phosphatase 71 U/L 34-104 Alt 10 U/L 7-52 Ast 21 U/L 13-39 Egfr Non- 92.2 >60 Egfr 118.6 >60 35 Laboratory test finding 01/24/2015 Acetaminophen < 15 g/mL 36 Alcohol < 10 mg/dL <10 Salicylate < 2.50 mg/dL <30 TSH (Thyroid Stimulating Horm) 1.78 IU/mL 0.34-5.60 Urine Drug SCR ED 01/24/2015 Amphetamine Ur Screen None Detected None Detect & Pain Clinic Barbiturates Urine Screen None Detected None Detect Benzodiazepine Urine Screen None Detected None Detect Urine Cannabinoids Screen Presumptive Posi <SEE NOTE> None Detect 37 Urine Cocaine Screen None Detected None Detect Urine Opiates Screen None Detected None Detect Urine Phencyclidine Screen None Detected None Detect 38 Comp Metabolic Panel 01/24/2015 Sodium 136 mmol/L 133-145 Potassium 3.5 mmol/L 3.5-5.0 Chloride 100 mmol/L Low 101-111 Co2 Carbon Dioxide 23 mmol/L 22-32 Anion Gap 13 mmol/L High 2-11 Glucose 75 mg/dL 70-100 Blood Urea Nitrogen 8 mg/dL 6-24 Creatinine 0.93 mg/dL 0.67-1.17 BUN/Creatinine Ratio 8.6 8-20 Calcium 9.8 mg/dL 8.6-10.3 Total Protein 7.8 g/dL 6.4-8.9 Albumin 5.2 g/dL 3.2-5.2 Globulin 2.6 g/dL 2-4 Albumin/Globulin Ratio 2.0 1-3 Total Bilirubin 0.80 mg/dL 0.2-1.0 Alkaline Phosphatase 84 U/L 34-104 Alt 12 U/L 7-52 Ast 19 U/L 13-39 Egfr Non- 103.6 >60 Egfr 133.2 >60 39 Urinalysis Profile 01/24/2015 Urine Color Straw Urine Appearance Clear Urine Specific [place] 1.002 Low 1.010-1.030 Urine pH 7.0 5-9 Urine Urobilinogen Negative Negative Urine Ketones Trace Negative Urine Protein Negative Negative Urine Leukocytes Negative Negative Urine Blood 2+ Negative Urine Nitrite Negative Negative Urine Bilirubin Negative Negative Urine Glucose Negative Negative Urine White Blood Cell Absent Absent Urine Red Blood Cell Trace(0-2/hpf) Absent Urine Bacteria Absent Absent CBC Auto Diff 01/24/2015 White Blood Count 6.7 10^3/uL 4.8-10.8 Red Blood Count 5.03 10^6/uL 4.0-5.4 Hemoglobin 14.8 g/dL 14.0-18.0 Hematocrit 44 % 42-52 Mean Corpuscular Volume 87 fL 80-94 Mean Corpuscular Hemoglobin 30 pg 27-31 Mean Corpuscular HGB Conc 34 g/dL 31-36 Red Cell Distribution Width 14 % 10.5-15 Platelet Count 284 10^3/uL 150-450 Mean Platelet Volume 9 um3 7.4-10.4 Abs Neutrophils 3.2 10^3/uL 1.5-7.7 Abs Lymphocytes 2.8 10^3/uL 1.0-4.8 Abs Monocytes 0.6 10^3/uL 0-0.8 Abs Eosinophils 0.1 10^3/uL 0-0.6 Abs Basophils 0 10^3/uL 0-0.2 Abs Nucleated RBC 0.01 10^3/uL Granulocyte % 47.3 % 38-83 Lymphocyte % 42.4 % 25-47 Monocyte % 8.9 % 1-9 Eosinophil % 0.9 % 0-6 Basophil % 0.5 % 0-2 Nucleated Red Blood Cells % 0.1 Laboratory test finding 11/12/2014 RPR NON-REACTIVE Non-Reactive 40 Comprehensive Metabolic Prof 11/12/2014 Sodium 139 mEq/L 134-149 Potassium 3.5 mEq/L Low 3.6-5.5 41 Chloride 100 mEq/L 94-112 Carbon Dioxide 26 mEq/L 21-32 Glucose 105 mg/dL 70-105 BUN 7 mg/dL 6-26 Creatinine 0.9 mg/dL 0.6-1.4 BUN/Creat Ratio 7.8 CALC Low 8.0-36.0 Calcium 9.7 mg/dL 8.6-10.2 Total Protein 7.8 g/dL 6.4-8.3 Albumin 5.0 g/dL 3.8-5.5 Globulin 3.4 g/dL 2.0-4.8 A/G Ratio 1.8 CALC 0.6-2.3 Alk. Phosphatase 80 U/L 22-95 Alt (SGPT) 13 U/L 7-35 Ast (Sgot) 21 U/L 5-34 Total Bilirubin 0.6 mg/dL 0.2-1.3 Laboratory test finding 11/12/2014 TSH 5.61 mIU/L 0.50-6.00 Vitamin D25 17 Low 30-100 Anti Viral AB Screen 11/12/2014 HIV 1/O/2 Abs-Index Value <1.00 < 1.00 40, 42 HIV 1/O/2 Abs, Qual Non Reactive Non Reactive 40 Chlamydia/GC Aptima Urine 11/12/2014 Chlamydia/GC, [place] SEE BELOW 40 Source- Urine * 40 Chlamydia Trachomatis,[place] Negative Negative 40, 43 Neisseria Gonorrhoeae,[place] Negative Negative 40, 44 Please Note: SEE BELOW 40, 45 CBC Electronic ([facility]ma) 11/12/2014 WBC 8.2 3.6-9.6 RBC 4.66 3.90-5.70 Hemoglobin (Fma/CMC/CTX) 13.6 g/dL 12.1 - 17.2 Hematocrit ([facility]ma/CMC/CTX) 39.8 % 36.1 - 50.3 Platelets 388 10^3/ul 150-400 Lymph% 36.4 % 17.0-48.0 Mixed% 4.1 Neutrophils % 59.5 Mean Corpuscular Vol 85 82.2-97.4 Mean Corpuscular Hemoglobin 29.2 27.6-33.3 Mean Corpuscular Hemo Concen 34.1 32.0-36.0 RDW 12.9 11.6-13.7 Mean Platelet Volume 6.4 5.5-11.0 Hepatitis Acute Panel 11/12/2014 Hep B Surface NON-REACTIVE Non-Reactive 40 Antigen Hep C Antibody NON-REACTIVE Non-Reactive 40 Hep C S/Co Ratio 0.1 0.0-0.7 40 Hep B Core Antibody Igm NON-REACTIVE Non-Reactive 40 Hep A Antibody Igm NON-REACTIVE Non-Reactive 40 Basic Metabolic Panel 09/18/2013 Sodium 137 mmol/L 133-145 Potassium 4.2 mmol/L 3.5-5.0 Chloride 102 mmol/L 101-111 Co2 Carbon Dioxide 29.0 mmol/L 22-32 Anion Gap 6.0 mmol/L 2-11 Glucose 101 mg/dL High 70-100 Blood Urea Nitrogen 8 mg/dL 6-24 Creatinine 0.80 mg/dL 0.50-1.40 BUN/Creatinine Ratio 10.0 8-20 Calcium 9.6 mg/dL 8.1-9.9 Egfr Non- 124.5 >60 Egfr 160.2 >60 46 CBC Auto Diff 09/18/2013 White Blood Count 7.0 10^3/uL 4.8-10.8 Red Blood Count 5.29 10^6/uL 4.0-5.4 Hemoglobin 15.5 g/dL 14.0-18.0 Hematocrit 46 % 42-52 Mean Corpuscular Volume 87 fL 80-94 Mean Corpuscular Hemoglobin 29 pg 27-31 Mean Corpuscular HGB Conc 34 g/dL 31-36 Red Cell Distribution Width 14 % 10.5-15 Platelet Count 304 10^3/uL 150-450 Mean Platelet Volume 8 um3 7.4-10.4 Abs Neutrophils 2.9 10^3/uL 1.5-7.7 Abs Lymphocytes 2.9 10^3/uL 1.0-4.8 Abs Monocytes 0.6 10^3/uL 0-0.8 Abs Eosinophils 0.6 10^3/uL 0-0.6 Abs Basophils 0.1 10^3/uL 0-0.2 Abs Nucleated RBC 0.01 10^3/uL Granulocyte % 41.3 % 38-83 Lymphocyte % 41.0 % 25-47 Monocyte % 8.8 % 1-9 Eosinophil % 8.1 % High 0-6 Basophil % 0.8 % 0-2 Nucleated Red Blood Cells % 0.1 Laboratory test 09/18/2013 C Reactive Protein < 0.5 mg/dL Less than 0.5 finding Urine Drug SCR ED 05/09/2013 Amphetamine Ur Screen None Detected None Detect & Pain Clinic Barbiturates Urine Screen None Detected None Detect Benzodiazepine Urine Screen None Detected None Detect Urine Cannabinoids Screen None Detected None Detect Urine Cocaine Screen None Detected None Detect Urine Opiates Screen None Detected None Detect Urine Phencyclidine Screen None Detected None Detect 47 Laboratory test finding 10/04/2012 Quickstrep NEG Negative Throat - Beta Strep Fma negative@48hrs Ua - Non Micro ([facility]ma) 10/04/2012 Appearance clear Color yellow Glucose neg Bilirubin neg Ketones neg SP Grav >=1.030 Blood neg PH 6.0 Protein neg Urobil 0.2 Nitrite neg Leukocytes (Fma/CMC/Centrex) neg Laboratory test finding 08/09/2012 Quickstrep neg Negative Throat - Beta Strep Fma NEG @ 48 HRS Laboratory test finding 04/14/2012 Aldolase, Serum 4.8 U/L 1.2-7.6 Comprehensive Metabolic Prof 04/14/2012 Albumin 5.2 g/dL 3.8-5.5 Alk. Phos. 126 U/L High 22-95 48 Alt (SGPT) 22 U/L 10-40 Ast (Sgot) 28 U/L 5-34 BUN 11 mg/dL 6-26 Calcium 9.7 mg/dL 8.6-10.2 Chloride 96 mEq/L 94-112 Creatinine 0.9 mg/dL 0.6-1.4 Carbon Dioxide 26 mEq/L 21-32 Glucose 94 mg/dL 70-105 Sodium 134 mEq/L 134-149 Total Bilirubin 0.6 mg/dL 0.2-1.3 Total Protein 7.9 g/dL 6.3-8.1 Potassium 4.5 mEq/L 3.6-5.5 Globulin 2.7 g/dL 2.0-4.8 A/G Ratio 2.0 Calc 0.6-2.2 BUN/Creat Ratio 11.4 Calc 8.0-36.0 Laboratory test finding 04/14/2012 Free T3 3.52 pg/mL 2.00-4.90 Creatine Kinase 210 U/L High 38-174 49 TSH 4.80 mIU/L 0.50-6.00 Laboratory test finding 04/14/2012 Sed Rate (Fma/CMC/Centrex) 3 MM CBC Electronic ([facility]) 04/14/2012 WBC 7.6 3.6-9.6 RBC 5.35 3.90-5.70 Hemoglobin ([facility]ma/CMC/CTX) 15.4 g/dL 12.1 - 17.2 Hematocrit (Fma/CMC/CTX) 49.2 % 36.1 - 50.3 Platelets 314 10^3/ul 150-400 Lymph% 38.9 20.5-51.1 Mixed% 6.5 Neutrophils % 54.7 Mean Corpuscular Vol 92 82.2-97.4 Mean Corpuscular Hemoglobin 28.8 27.6-33.3 Mean Corpuscular Hemo Concen 31.3 Low 32.0-36.0 RDW 12.7 11.6-13.7 Mean Platelet Volume 7.4 6.5-11.0 Throat-Beta Strept 09/28/2011 M <SEE NOTE> 50 Ua - Non Micro (Fma) 08/31/2011 Appearance CLEAR Color YELLOW Glucose NEG Bilirubin NEG Ketones NEG SP Grav 1.010 Blood NEG PH 7.0 Protein NEG Urobil 0.2 Nitrite NEG Leukocytes (Fma/CMC/Centrex) NEG Laboratory test finding 08/28/2011 Quickstrep NEG Negative Throat - Beta Strep Fma neg Lyme Igg/M W/RFX West 06/24/2011 Lyme IgG/IgM Ab <0.91 index 0.00- 0.90 51 Lyme Disease Ab, Quant, IgM <0.91 index 0.00-0.90 52 CBC Electronic (a) 06/24/2011 WBC 5.8 3.6-9.6 RBC 5.37 3.90-5.70 Hemoglobin (Fma/CMC/CTX) 15.7 g/dL 12.1 - 17.2 Hematocrit (Fma/CMC/CTX) 45.5 % 36.1 - 50.3 Platelets 342 10^3/ul 150-400 Lymph% 42.3 20.5-51.1 Mixed% 10.6 Neutrophils % 47.1 Mean Corpuscular Vol 85 82.2-97.4 Mean Corpuscular Hemoglobin 29.2 27.6-33.3 Mean Corpuscular Hemo Concen 34.4 32.0-36.0 RDW 11.6 11.6-13.7 Mean Platelet Volume 7.7 6.5-11.0 Comprehensive Metabolic Prof 06/24/2011 Albumin 5.3 g/dL 3.8-5.5 Alk. Phos. 154 U/L High 22-95 53 Alt (SGPT) 13 U/L 10-40 Ast (Sgot) 18 U/L 5-34 BUN 10 mg/dL 6-26 Calcium 10.1 mg/dL 8.6-10.2 Chloride 101 mEq/L 94-112 Creatinine 0.8 mg/dL 0.6-1.4 Carbon Dioxide 27 mEq/L 21-32 Glucose 104 mg/dL 70-105 Sodium 136 mEq/L 134-149 Total Bilirubin 0.6 mg/dL 0.2-1.3 Total Protein 8.1 g/dL 6.3-8.1 Potassium 4.6 mEq/L 3.6-5.5 Globulin 2.8 g/dL 2.0-4.8 A/G Ratio 1.9 Calc 0.6-2.2 BUN/Creat Ratio 11.4 Calc 8.0-36.0 Laboratory test finding 06/24/2011 TSH 1.63 mIU/L 0.50-6.00 Amylase 84 U/L 20-105 Ebv Acute Infection Abs 06/24/2011 Ebv Ab Vca, IgM <0.2 AI 0.0-0.8 54 Ebv Early Antigen Ab, IgG <0.2 AI 0.0-0.8 55 Ebv Ab Vca, IgG <0.2 AI 0.0-0.8 56 Ebv Nuclear Antigen Ab, IgG <0.2 AI 0.0-0.8 57 Interpretation: SEE NOTE 58 Influenza A&B 12/19/2010 Influenza A NEGATIVE Influenza B NEGATIVE Laboratory test finding 12/19/2010 Quickstrep NEGATIVE Negative Throat - Beta Strep Fma negative@48hrs Laboratory test finding 09/02/2010 TSH 5.05 mIU/L 0.50-6.00 Free T4 1.09 ng/dL 0.75-1.54 Ua - Non Micro (Fma) 07/25/2010 Appearance CLEAR Color YELLOW Glucose NEG Bilirubin NEG Ketones 15MG/DL SP Grav 1.020 Blood NEG PH 5.5 Protein NEG Urobil 0.2EU/DL Nitrite NEG Leukocytes (Fma/CMC/Centrex) NEG Laboratory test 06/30/2010 [facility] [place] Lab Test CBC;CMP;PROLACN See Image Reportt finding CBC With Electronic 01/10/2010 White Blood 8.5 CUMM 4.8-10.8 Diff Stat Count Red Cell Count 4.66 CUMM 4.6-6.2 Hemoglobin 13.7 g/dL Low 14.0-18.0 Hematocrit 39 % Low 42-52 Mean Corpuscular Volume 85 um3 80-94 Mean Corpuscular Hemoglob 29 pg 27-31 Mean Corpuscular HGB Cone 35 g/dL 32-36 Redcell Distribution WDTH 13 % 10.5-15 Platelet Count 299 CUMM 150-450 Mean Platelet Volume 7.8 um3 7.4-10.4 Gran % 26.6 % Low 38-83 Lymph % 57.6 % High 25-47 Mononuclear % 10.3 % High 1-9 Eosinophil % 5.1 % 0-6 Basophil % 0.4 % 0-2 Abs Lymphs 4.9 High 1.0-4.8 Abs Mononuclear 0.9 High 0-0.8 Absolute Neutrophil Count 2.3 1.5-7.7 Abs Eosinophils 0.4 0-0.6 Abs Basophils 0 0-0.2 Comp Stat 01/10/2010 Sodium 134 mmol/L Low 135-145 Potassium 4.8 mmol/L 3.6-5.2 Chloride 107 mmol/L 101-111 Co2 (Carbon Dioxide) 20.0 mmol/L Low 22-32 Anion Gap 7.0 mmol/L 2-11 59 Glucose 96 mg/dL 70-100 60 BUN 8 mg/dL 6-24 Creatinine 0.58 mg/dL 0.50-1.40 One Over Creatinine 1.70 BUN/Creatinine Ratio 13.8 8-20 Calcium 9.0 mg/dL 8.1-9.9 61 Total Protein 7.9 GM/DL 6.2-8.1 Albumin 4.4 GM/DL 3.6-5.4 Globulin 3.5 GM/DL 2-4 Albumin/Globulin Ratio 1.3 1-3 Bilirubin Total 0.5 mg/dL 0.4-1.5 62 Alkaline Phosphatase 281 U/L 135-393 Alt (SGPT) 24 U/L 17-63 Ast (Sgot) 37 U/L 12-42 Laboratory test finding 01/10/2010 Valproic Acid 49.1 g/mL Low 50-100 63 (Depakene) Comp Stat 06/13/2009 Sodium 140 mmol/L 135-145 Potassium 4.6 mmol/L 3.6-5.2 Chloride 107 mmol/L 101-111 Co2 (Carbon Dioxide) 24.0 mmol/L 22-32 Anion Gap 9.0 mmol/L 2-11 64 Glucose 103 mg/dL High 70-100 65 BUN 10 mg/dL 6-24 Creatinine 0.60 mg/dL 0.50-1.40 One Over Creatinine 1.60 BUN/Creatinine Ratio 16.7 8-20 Calcium 9.9 mg/dL 8.1-9.9 66 Total Protein 7.5 GM/DL 6.2-8.1 Albumin 4.4 GM/DL 3.6-5.4 Globulin 3.1 GM/DL 2-4 Albumin/Globulin Ratio 1.4 1-3 Bilirubin Total 0.5 mg/dL 0.4-1.5 67 Alkaline Phosphatase 277 U/L 135-393 Alt (SGPT) 18 U/L 17-63 Ast (Sgot) 31 U/L 12-42 CBC With Electronic Diff Stat 06/13/2009 White Blood Count 10.4 CUMM 4.8- 10.8 Red Cell Count 5.02 CUMM 4.6-6.2 Hemoglobin 14.1 g/dL 14.0-18.0 Hematocrit 42 % 42-52 Mean Corpuscular Volume 83 um3 80-94 Mean Corpuscular Hemoglob 28 pg 27-31 Mean Corpuscular HGB Cone 34 g/dL 32-36 Redcell Distribution WDTH 14 % 10.5-15 Platelet Count 432 CUMM 150-450 Mean Platelet Volume 7.6 um3 7.4-10.4 Gran % 36.7 % Low 38-83 Lymph % 50.1 % High 25-47 Mononuclear % 8.3 % 1-9 Eosinophil % 4.5 % 0-6 Basophil % 0.4 % 0-2 Abs Lymphs 5.2 High 1.0-4.8 Abs Mononuclear 0.9 High 0-0.8 Absolute Neutrophil Count 3.8 1.5-7.7 Abs Eosinophils 0.5 0-0.6 Abs Basophils 0 0-0.2 68 Urinalysis Stat 06/13/2009 Ua Color YELLOW Appearance-Urine CLEAR Specific [place]-Ur 1.019 1.010-1.030 Esterase-Urine NEGATIVE Negative Nitrite NEGATIVE Negative [id number] NEGATIVE Negative Protein-Urine NEGATIVE Negative PH-Urine 5.5 5-9 Blood-Urine NEGATIVE Negative Ketones-Urine NEGATIVE Negative Bilirubin-Ur NEGATIVE Negative Glucose-Urine NEGATIVE Negative Drug Screen Urine 06/13/2009 Amphetamines Urine Screen NONE DETECTED None Detect Barbituates Urine Screen NONE DETECTED None Detect Benzodiazepine Ur Screen NONE DETECTED None Detect Cannabinoid Urine Screen NONE DETECTED None Detect Cocaine Metabolites Urine NONE DETECTED None Detect Opiates Urine Screen NONE DETECTED None Detect PCP Urine Screen NONE DETECTED None Detect 69 CBC With Electronic Diff Stat 05/11/2009 White Blood Count 6.4 CUMM 4.8- 10.8 Red Cell Count 5.08 CUMM 4.6-6.2 Hemoglobin 14.6 g/dL 14.0-18.0 Hematocrit 42 % 42-52 Mean Corpuscular Volume 83 um3 80-94 Mean Corpuscular Hemoglob 29 pg 27-31 Mean Corpuscular HGB Cone 34 g/dL 32-36 Redcell Distribution WDTH 13 % 10.5-15 Platelet Count 380 CUMM 150-450 Mean Platelet Volume 7.6 um3 7.4-10.4 Gran % 35.3 % Low 38-83 Lymph % 44.6 % 25-47 Mononuclear % 13.6 % High 1-9 Eosinophil % 5.9 % 0-6 Basophil % 0.6 % 0-2 Abs Lymphs 2.8 1.0-4.8 Abs Mononuclear 0.9 High 0-0.8 Absolute Neutrophil Count 2.3 1.5-7.7 Abs Eosinophils 0.4 0-0.6 Abs Basophils 0 0-0.2 Comp Stat 05/11/2009 Sodium 140 mmol/L 135-145 Potassium 4.6 mmol/L 3.6-5.2 Chloride 105 mmol/L 101-111 Co2 (Carbon Dioxide) 28.0 mmol/L 22-32 Anion Gap 7.0 mmol/L 2-11 70 Glucose 114 mg/dL High 70-100 71 BUN 8 mg/dL 6-24 Creatinine 0.60 mg/dL 0.50-1.40 One Over Creatinine 1.60 BUN/Creatinine Ratio 13.3 8-20 Calcium 9.8 mg/dL 8.1-9.9 72 Total Protein 7.0 GM/DL 6.2-8.1 Albumin 4.3 GM/DL 3.6-5.4 Globulin 2.7 GM/DL 2-4 Albumin/Globulin Ratio 1.6 1-3 Bilirubin Total 0.7 mg/dL 0.4-1.5 73 Alkaline Phosphatase 294 U/L 135-393 Alt (SGPT) 23 U/L 17-63 Ast (Sgot) 33 U/L 12-42 PT + PTT No Therpy/Unkn 01/09/2009 PTT 33.3 seconds 23.7-35.5 74 PT (No Therapy/Unknown) 14.0 seconds 11.7-14.5 74, 75 Inr 1.1 74, 76 Manual Differential 01/09/2009 S. Neutrophils 49 % 45-75 B. Neutrophils 2 % 0-6 Metamyelocytes 1 % High 0-0 Myelocytes - Promyelocytes - Nucleated RBC - Blast Cells - Lymphocytes 4 % Low 20-45 Atypical Lymphs - Monocytes 6 % 0-10 Eosinophils - Basophils 1 % 0-2 Polychromasia - Hypochromasia - Poikilocytosis - Target Cells - Spherocytosis - Anisocytosis - Microcytosis - Sickle Cells - Basophilic Stippling - Vacuoles - Toxic Granulation - Macrocytosis - Platelet Estimate ADEQUATE Morphology SEE COMMENT Morphology Comment 1 occassional echi <SEE NOTE> 77 Morphology Comment 2 few acanthocytes Morphology Comment 3 - Morphology Comment 4 - Hemogram W/PLT 01/09/2009 WBC 7.4 x10^3/uL 3.6-9.6 HCT 39 % 36-50 HGB 13.9 g/dL 12.1-17.2 MCH 28.2 pg 27.6-33.3 MCV 79.8 fL Low 82.2-97.4 MCHC 35.3 g/dL 33.0-35.5 PLT 399 x10^3/uL 150-400 RBC 4.93 x10^6/uL 3.90-5.70 RDW 13.4 % 11.6-13.7 CBC With Electronic Diff Stat 12/26/2008 White Blood Count 7.9 CUMM 4.8- 10.8 Red Cell Count 4.75 CUMM 4.6-6.2 Hemoglobin 13.5 g/dL Low 14.0-18.0 Hematocrit 39 % Low 42-52 Mean Corpuscular Volume 82 um3 80-94 Mean Corpuscular Hemoglob 28 pg 27-31 Mean Corpuscular HGB Cone 35 g/dL 32-36 Redcell Distribution WDTH 14 % 10.5-15 Platelet Count 345 CUMM 150-450 Mean Platelet Volume 7.8 um3 7.4-10.4 Gran % 31.7 % Low 38-83 Lymph % 51.6 % High 25-47 Mononuclear % 9.3 % High 1-9 Eosinophil % 6.8 % High 0-6 Basophil % 0.6 % 0-2 Abs Lymphs 4.1 1.0-4.8 Abs Mononuclear 0.7 0-0.8 Absolute Neutrophil Count 2.5 1.5-7.7 Abs Eosinophils 0.5 0-0.6 Abs Basophils 0.1 0-0.2 78 Comp Stat 12/26/2008 Sodium 139 mmol/L 135-145 Potassium 4.3 mmol/L 3.6-5.2 Chloride 103 mmol/L 101-111 Co2 (Carbon Dioxide) 27.0 mmol/L 22-32 Anion Gap 9.0 mmol/L 2-11 79 Glucose 107 mg/dL High 70-100 80 BUN 5 mg/dL Low 6-24 Creatinine 0.60 mg/dL 0.50-1.40 One Over Creatinine 1.60 BUN/Creatinine Ratio 8.3 8-20 Calcium 9.5 mg/dL 8.1-9.9 81 Total Protein 7.2 GM/DL 6.2-8.1 Albumin 4.3 GM/DL 3.6-5.4 Globulin 2.9 GM/DL 2-4 Albumin/Globulin Ratio 1.5 1-3 Bilirubin Total 0.6 mg/dL 0.4-1.5 Alkaline Phosphatase 292 U/L 135-393 Alt (SGPT) 16 U/L Low 17-63 Ast (Sgot) 28 U/L 12-42 Laboratory test finding 12/26/2008 Levetiracetam 16 ug/mL () 82 CBC With Electronic Diff Stat 10/07/2008 White Blood Count 12.2 CUMM High 4.8-10.8 Red Cell Count 4.97 CUMM 4.6-6.2 Hemoglobin 14.1 g/dL 14.0-18.0 Hematocrit 41 % Low 42-52 Mean Corpuscular Volume 82 um3 80-94 Mean Corpuscular Hemoglob 28 pg 27-31 Mean Corpuscular HGB Cone 35 g/dL 32-36 Redcell Distribution WDTH 13 % 10.5-15 Platelet Count 475 CUMM High 150-450 Mean Platelet Volume 8.1 um3 7.4-10.4 Gran % 28.7 % Low 38-83 Lymph % 56.7 % High 25-47 Mononuclear % 9.4 % High 1-9 Eosinophil % 4.8 % 0-6 Basophil % 0.4 % 0-2 Abs Lymphs 6.9 High 1.0-4.8 Abs Mononuclear 1.2 High 0-0.8 Absolute Neutrophil Count 3.5 1.5-7.7 Abs Eosinophils 0.6 0-0.6 Abs Basophils 0 0-0.2 Comp Stat 10/07/2008 Sodium 140 mmol/L 135-145 Potassium 4.4 mmol/L 3.6-5.2 Chloride 108 mmol/L 101-111 Co2 (Carbon Dioxide) 22.0 mmol/L 22-32 Anion Gap 10.0 mmol/L 2-11 83 Glucose 115 mg/dL High 70-100 84 BUN 6 mg/dL 6-24 Creatinine 0.50 mg/dL 0.50-1.40 One Over Creatinine 2.00 BUN/Creatinine Ratio 12.0 8-20 Calcium 9.4 mg/dL 8.1-9.9 85 Total Protein 7.3 GM/DL 6.2-8.1 Albumin 4.3 GM/DL 3.6-5.4 Globulin 3.0 GM/DL 2-4 Albumin/Globulin Ratio 1.4 1-3 Bilirubin Total 0.7 mg/dL 0.4-1.5 Alkaline Phosphatase 303 U/L 135-393 Alt (SGPT) 19 U/L 17-63 Ast (Sgot) 39 U/L 12-42 Laboratory test finding 10/07/2008 TSH 5.87 MIU/ML High 0.34-5.60 Levetiracetam 19 ug/mL () 86 Comp Metabolic Panel 10/03/2008 Sodium 137 mmol/L 135-145 Potassium 4.2 mmol/L 3.6-5.2 Chloride 105 mmol/L 101-111 Co2 (Carbon Dioxide) 26.0 mmol/L 22-32 Anion Gap 6.0 mmol/L 2-11 87 Glucose 107 mg/dL High 70-100 88 BUN 7 mg/dL 6-24 Creatinine 0.48 mg/dL Low 0.50-1.40 One Over Creatinine 2.00 BUN/Creatinine Ratio 14.6 8-20 Calcium 9.9 mg/dL 8.1-9.9 89 Total Protein 7.3 GM/DL 6.2-8.1 Albumin 4.3 GM/DL 3.6-5.4 Globulin 3.0 GM/DL 2-4 Albumin/Globulin Ratio 1.4 1-3 Bilirubin Total 0.5 mg/dL 0.4-1.5 Alkaline Phosphatase 277 U/L 135-393 Alt (SGPT) 20 U/L 17-63 Ast (Sgot) 30 U/L Laboratory test finding 10/03/2008 Magnesium 1.9 mg/dL 1.7-2.6 Vitamin B12 279 pg/mL 180-914 TSH 2.91 MIU/ML 0.34-5.60 CBC With Electronic Diff 10/03/2008 White Blood Count 8.2 CUMM 4.8-10.8 Red Cell Count 4.87 CUMM 4.6-6.2 Hemoglobin 13.4 g/dL Low 14.0-18.0 Hematocrit 40 % Low 42-52 Mean Corpuscular Volume 81 um3 80-94 Mean Corpuscular Hemoglob 28 pg 27-31 Mean Corpuscular HGB Cone 34 g/dL 32-36 Redcell Distribution WDTH 14 % 10.5-15 Platelet Count 431 CUMM 150-450 Mean Platelet Volume 7.4 um3 7.4-10.4 Gran % 28.2 % Low 38-83 Lymph % 55.4 % High 25-47 Mononuclear % 10.4 % High 1-9 Eosinophil % 5.5 % 0-6 Basophil % 0.5 % 0-2 Abs Lymphs 4.5 1.0-4.8 Abs Mononuclear 0.8 0-0.8 Absolute Neutrophil Count 2.3 1.5-7.7 Abs Eosinophils 0.4 0-0.6 Abs Basophils 0 0-0.2 90 Laboratory test finding 10/03/2008 Erythrocyte Sed Rate 5 MM/HR 0-15 Vitamin D, 25 Hydroxy 10/03/2008 25-Hydroxy Vitamin D2 <4.0 ng/mL () 25-Hydroxy Vitamin D3 13 ng/mL () 25-Hydroxy Vitamin D Total 13 ng/mL () 91 Basic Metabolic Panel 09/20/2008 Sodium 140 mmol/L 135-145 Potassium 4.7 mmol/L 3.6-5.2 Chloride 109 mmol/L 101-111 Co2 (Carbon Dioxide) 23.0 mmol/L 22-32 Anion Gap 8.0 mmol/L 2-11 92 Glucose 90 mg/dL 70-100 93 BUN 5 mg/dL Low 6-24 Creatinine 0.40 mg/dL Low 0.50-1.40 One Over Creatinine 2.50 BUN/Creatinine Ratio 12.5 8-20 Calcium 9.3 mg/dL 8.1-9.9 94 Urinalysis W/Microscopic Stat 09/20/2008 Ua Color YELLOW Appearance-Urine CLEAR Specific [place]-Ur 1.016 1.010-1.030 Esterase-Urine TRACE Negative Nitrite NEGATIVE Negative [id number] NEGATIVE Negative Protein-Urine NEGATIVE Negative PH-Urine 7.0 5-9 Blood-Urine NEGATIVE Negative Ketones-Urine NEGATIVE Negative Bilirubin-Ur NEGATIVE Negative Glucose-Urine NEGATIVE Negative WBC-Urine 0-3 0-5 RBC-Urine RARE 0-2 Mucus Urine TRACE Epith Cells-Ur SMALL Bacteria-Urine TRACE CBC With Electronic Diff Stat 09/20/2008 White Blood Count 9.6 CUMM 4.8- 10.8 Red Cell Count 4.92 CUMM 4.6-6.2 Hemoglobin 13.7 g/dL Low 14.0-18.0 Hematocrit 40 % Low 42-52 Mean Corpuscular Volume 81 um3 80-94 Mean Corpuscular Hemoglob 28 pg 27-31 Mean Corpuscular HGB Cone 35 g/dL 32-36 Redcell Distribution WDTH 14 % 10.5-15 Platelet Count 432 CUMM 150-450 Mean Platelet Volume 7.2 um3 Low 7.4-10.4 Gran % 26.1 % Low 38-83 Lymph % 53.7 % High 25-47 Mononuclear % 11.6 % High 1-9 Eosinophil % 8.1 % High 0-6 Basophil % 0.5 % 0-2 Abs Lymphs 5.1 High 1.0-4.8 Abs Mononuclear 1.1 High 0-0.8 Absolute Neutrophil Count 2.5 1.5-7.7 Abs Eosinophils 0.8 High 0-0.6 Abs Basophils 0 0-0.2 95 Basic Metabolic Profile 09/06/2008 BUN 8 mg/dL 6-26 Calcium 9.8 mg/dL 8.6-10.2 Chloride 101 mEq/L 94-112 Creatinine 0.7 mg/dL 0.6-1.4 Carbon Dioxide 24 mEq/L 21-32 Glucose 105 mg/dL 70-105 Sodium 141 mEq/L 134-149 Potassium 4.4 mEq/L 3.6-5.5 BUN/Creat Ratio 11.7 Calc 8.0-36.0 Laboratory test finding 09/06/2008 Trileptal Serum (CX) 6 Low 10-35 Ua - Non Micro (Fma) 06/28/2008 Appearance CLEAR Color YELLOW Glucose NEG Bilirubin ICTO NEG Ketones NEG SP Grav 1.025 Blood NEG PH 5.5 Protein SSA NEG Urobil 0.2 Nitrite NEG Leukocytes (Fma/CMC/Centrex) NEG CBC With Electronic Diff Stat 11/04/2007 White Blood Count 7.6 CUMM 4.8- 10.8 Abs Basophils 0 0-0.2 Abs Eosinophils 0.6 0-0.6 Absolute Neutrophil Count 2.6 1.5-7.7 Abs Lymphs 3.6 1.0-4.8 Abs Mononuclear 0.7 0-0.8 Basophil % 0.6 % 0-2 Hematocrit 39 % 35-45 Hemoglobin 13.3 g/dL 11.5-15.5 Eosinophil % 8.1 % High 0-6 Gran % 34.8 % Low 38-83 Lymph % 46.9 % High 20-45 Mean Corpuscular HGB Cone 34 g/dL 32-36 Mean Corpuscular Hemoglob 28 pg 27-31 Mean Corpuscular Volume 82 um3 80-94 Mean Platelet Volume 7.7 um3 7.4-10.4 Mononuclear % 9.6 % High 1-9 Platelet Count 384 CUMM 150-450 Red Cell Count 4.72 CUMM 4.0-5.2 Redcell Distribution WDTH 14 % 10.5-15 Basic Metabolic Panel Stat 11/04/2007 One Over Creatinine 2.00 Anion Gap 7.0 mmol/L 2-11 96 BUN 6 mg/dL 6-24 Calcium 9.3 mg/dL 8.7-10.2 Chloride 104 mmol/L 101-111 Co2 (Carbon Dioxide) 27.0 mmol/L 22-32 Glucose 111 mg/dL High 70-105 Potassium 4.4 mmol/L 3.6-5.2 Sodium 138 mmol/L 135-145 BUN/Creatinine Ratio 12.0 8-20 Creatinine 0.5 mg/dL 0.5-1.4 Laboratory test finding 09/05/2007 Throat - Beta Strep Fma NEG @ 48 HOURS 1 Because ethnic data is not always readily available, this report includes an eGFR for both -Americans and non- Americans. The National Kidney Disease Education Program (NKDEP) does not endorse the use of the MDRD equation for patients that are not between the ages of 18 and 70, are , have extremes of body size, muscle mass, or nutritional status, or are non- or non-. According to the National Kidney Foundation, irrespective of diagnosis, the stage of the disease is based on the level of kidney function: Stage Description GFR(mL/min/1.73 m(2)) 1 Kidney damage with normal or decreased GFR 90 2 Kidney damage with mild decrease in GFR 60-89 3 Moderate decrease in GFR 30-59 4 Severe decrease in GFR 15-29 5 Kidney failure <15 (or dialysis) 2 Acute inflammation: >10.00 3 Mild absolute lymphocytosis favor reactive. Additional studies as clinically warranted. Reviewed by Dr. Eller 4 Acute inflammation: >10.00 5 >100 to <200 pg/mL: likely compensated congestive heart failure (CHF) 200 to 400 pg/mL: likely moderate CHF >400 pg/mL: likely moderate to severe CHF 6 Because ethnic data is not always readily available, this report includes an eGFR for both -Americans and non- Americans. The National Kidney Disease Education Program (NKDEP) does not endorse the use of the MDRD equation for patients that are not between the ages of 18 and 70, are , have extremes of body size, muscle mass, or nutritional status, or are non- or non-. According to the National Kidney Foundation, irrespective of diagnosis, the stage of the disease is based on the level of kidney function: Stage Description GFR(mL/min/1.73 m(2)) 1 Kidney damage with normal or decreased GFR 90 2 Kidney damage with mild decrease in GFR 60-89 3 Moderate decrease in GFR 30-59 4 Severe decrease in GFR 15-29 5 Kidney failure <15 (or dialysis) 7 Critical Result LACT:7.7 Called to [id number] at: 02:34:10 by:[id number] Read back by:[id number] [facility] Severe Sepsis and Septic Shock Management Bundle Measure requires all lactic acids initially measuring >2.0 mmol/L be repeated. [facility] Severe Sepsis and Septic Shock Management Bundle Measure requires all lactic acids initially measuring >2.0 mmol/L be repeated. 8 Therapeutic concentration: <50 ug/mL Toxic concentration: >120 ug/mL 9 Presumptive Positive Presumptive positive results are unconfirmed. 10 The urine specimen was tested at the listed cutoffs: Drug class test level (ng/mL) Amphetamines 500 Barbiturates 200 Benzodiazepine metabolites 200 Cocaine metabolites 150 Cannabinoids 50 Opiates 300 Pcp 25 Specimen was received without chain of custody. Results should be used for medical purposes only. 11 Please note: The following may produce a false positive D Dimer test: - Rheumatoid factor greater than 60 IU/ml - Plasma hemoglobin greater than 0.05 gm/dl - Bilirubin greater than 50 mg/dl - Lipids greater than 1000 mg/dl - FDP greater than 20 ug/ml 12 Because ethnic data is not always readily available, this report includes an eGFR for both -Americans and non- Americans. The National Kidney Disease Education Program (NKDEP) does not endorse the use of the MDRD equation for patients that are not between the ages of 18 and 70, are , have extremes of body size, muscle mass, or nutritional status, or are non- or non-. According to the National Kidney Foundation, irrespective of diagnosis, the stage of the disease is based on the level of kidney function: Stage Description GFR(mL/min/1.73 m(2)) 1 Kidney damage with normal or decreased GFR 90 2 Kidney damage with mild decrease in GFR 60-89 3 Moderate decrease in GFR 30-59 4 Severe decrease in GFR 15-29 5 Kidney failure <15 (or dialysis) 13 Therapeutic concentration: <50 ug/mL Toxic concentration: >120 ug/mL 14 Presumptive Positive Presumptive positive results are unconfirmed. 15 The urine specimen was tested at the listed cutoffs: Drug class test level (ng/mL) Amphetamines 500 Barbiturates 200 Benzodiazepine metabolites 200 Cocaine metabolites 150 Cannabinoids 50 Opiates 300 Pcp 25 Specimen was received without chain of custody. Results should be used for medical purposes only. 16 Therapeutic concentration: <50 ug/mL Toxic concentration: >120 ug/mL 17 The urine specimen was tested at the listed cutoffs: Drug class test level (ng/mL) Amphetamines 500 Barbiturates 200 Benzodiazepine metabolites 200 Cocaine metabolites 150 Cannabinoids 50 Opiates 300 Pcp 25 Specimen was received without chain of custody. Results should be used for medical purposes only. 18 Because ethnic data is not always readily available, this report includes an eGFR for both -Americans and non- Americans. The National Kidney Disease Education Program (NKDEP) does not endorse the use of the MDRD equation for patients that are not between the ages of 18 and 70, are , have extremes of body size, muscle mass, or nutritional status, or are non- or non-. According to the National Kidney Foundation, irrespective of diagnosis, the stage of the disease is based on the level of kidney function: Stage Description GFR(mL/min/1.73 m(2)) 1 Kidney damage with normal or decreased GFR 90 2 Kidney damage with mild decrease in GFR 60-89 3 Moderate decrease in GFR 30-59 4 Severe decrease in GFR 15-29 5 Kidney failure <15 (or dialysis) 19 Because ethnic data is not always readily available, this report includes an eGFR for both -Americans and non- Americans. The National Kidney Disease Education Program (NKDEP) does not endorse the use of the MDRD equation for patients that are not between the ages of 18 and 70, are , have extremes of body size, muscle mass, or nutritional status, or are non- or non-. According to the National Kidney Foundation, irrespective of diagnosis, the stage of the disease is based on the level of kidney function: Stage Description GFR(mL/min/1.73 m(2)) 1 Kidney damage with normal or decreased GFR 90 2 Kidney damage with mild decrease in GFR 60-89 3 Moderate decrease in GFR 30-59 4 Severe decrease in GFR 15-29 5 Kidney failure <15 (or dialysis) 20 1 lav 21 Result: C677T Single mutation (C677T) identified Interpretation: This individual is heterozygous for the MTHFR C677T variant (one copy). The MTHFR [id number] variant was not identified. This combination of results is not associated with an increased risk of hyperhomocysteinemia, venous thrombosis, coronary artery disease, or recurrent loss. However, hyperhomocysteinemia may also occur due to mutations in enzymes other than MTHFR that are involved in homocysteine metabolism, or arise due to acquired factors. In evaluation of vascular and obstetric risk, consider measuring fasting homocysteine. Other risk factors may be detected through systematic clinical laboratory analysis. 22 Genetic counselors are available to discuss these results with health care providers at [phone] [place]. Methylenetetrahydrofolate reductase (MTHFR) is a rubi enzyme in the folate pathway and is responsible for the metabolism of homocysteine. There are two common variants in the MTHFR gene, c.655C>T (p.Cak460Ipi), referred to as C677T, and c.1286A>C (p.Zad123Qxu), referred to as F9106W. Individuals homozygous for C677T (two copies of the variant), have decreased activity of the MTHFR enzyme and a predisposition to hyperhomocysteinemia, particularly when deficient in folate. Hyperhomocysteinemia is a risk factor for venous thrombosis and coronary artery disease and is associated with an increased risk of open neural tube defects. The C677T variant does not independently increase risk of these conditions in the absence of hyperhomocysteinemia. The D1998B variant is not associated with elevated homocysteine levels unless a C677T variant is also present; however, the clinical significance of heterozygosity for both C677T and Z9671W is controversial. Population data suggest that these two variants are not present on the same chromosome, but rare exceptions have been reported of triple variant MTHFR genotypes (ie. homozygous for one variant and heterozygous for the other). Homozygosity for C677T has an estimated frequency of 10% to 15% in Caucasians and 25% in Hispanics. Additional information: Dietary folic acid, B6 and B12 supplementation has been suggested to lower homocysteine levels in some people. Folic acid supplementation has been shown to reduce the occurrence of neural tube defects. Methodology: DNA analysis of the MTHFR gene was performed by PCR amplification followed by restriction analysis. The diagnostic sensitivity is >99% for both. Molecular-based testing is highly accurate, but as in any laboratory test, rare diagnostic errors may occur. All test results must be combined with clinical information for the most accurate interpretation. 23 Baldev LD, Tony Q. Am J Epidemiol 2000; 151(9):862-877. Sylvain MM, Martell JA. Arch Pathol Lab Med 2007; 131(6):872-884. Frosst P et al. Wanda Yana 1995; 10(1):111-113. Hickey SE et al. Yana Med 2013; 15(2):153-156. Shanel C et al. Obstet Gynecol 2011; 118(3):730-740. Cruz B et al. Eur J Epidemiol 2013; 28(8):621-647. Katia Gutiérrez, PhD, [facility] Angeline Taylor, PhD, [facility] Chikis Buenrostro, PhD, [facility] Sana Nuñez M.S., PhD, FAC Macy Levy, PhD, [facility] Jessica Guevara, PhD, [facility] Moe Torres, PhD, [facility] 24 Please note: The following may produce a false positive D Dimer test: - Rheumatoid factor greater than 60 IU/ml - Plasma hemoglobin greater than 0.05 gm/dl - Bilirubin greater than 50 mg/dl - Lipids greater than 1000 mg/dl - FDP greater than 20 ug/ml 25 Therapeutic concentration: <50 ug/mL Toxic concentration: >120 ug/mL 26 >100 to <200 pg/mL: likely compensated congestive heart failure (CHF) 200 to 400 pg/mL: likely moderate CHF >400 pg/mL: likely moderate to severe CHF 27 Therapeutic target for the treatment of diabetes Mellitus patients is <7% HBA1C, and in selective patients <6.0%.Please refer to [place] Diabetes Association Diabetic care guidelines for further information. 28 Critical Result LACT:5.0 Called to [id number] at: 18:42:39 by:[id number] Read back by:[id number] [facility] Severe Sepsis and Septic Shock Management Bundle Measure requires all lactic acids initially measuring >2.0 mmol/L be repeated. 29 Because ethnic data is not always readily available, this report includes an eGFR for both -Americans and non- Americans. The National Kidney Disease Education Program (NKDEP) does not endorse the use of the MDRD equation for patients that are not between the ages of 18 and 70, are , have extremes of body size, muscle mass, or nutritional status, or are non- or non-. According to the National Kidney Foundation, irrespective of diagnosis, the stage of the disease is based on the level of kidney function: Stage Description GFR(mL/min/1.73 m(2)) 1 Kidney damage with normal or decreased GFR 90 2 Kidney damage with mild decrease in GFR 60-89 3 Moderate decrease in GFR 30-59 4 Severe decrease in GFR 15-29 5 Kidney failure <15 (or dialysis) 30 Acute inflammation: >10.00 31 Reference Range and Interpretation: TnI (ng/mL) Interpretation Less Than 0.03 ng/mL Not supportive of diagnosis of ME 0.03 - 0.50 ng/mL Indeterminate: suggest serial studies if clinically indicated. Greater than 0.5 ng/mL Consistent with diagnosis of ME 32 1sst 33 Therapeutic concentration: <50 ug/mL Toxic concentration: >120 ug/mL 34 The urine specimen was tested at the listed cutoffs: Drug class test level (ng/mL) Amphetamines 500 Barbituates 200 Benzodiazepine metabolites 200 Cocaine metabolites 150 Cannabinoids 50 Opiates 300 Pcp 25 This is a screening procedure. Positive results are not confirmed. Specimen was received without chain of custody. Results should be used for medical purposes only. 35 Because ethnic data is not always readily available, this report includes an eGFR for both -Americans and non- Americans. The National Kidney Disease Education Program (NKDEP) does not endorse the use of the MDRD equation for patients that are not between the ages of 18 and 70, are , have extremes of body size, muscle mass, or nutritional status, or are non- or non-. According to the National Kidney Foundation, irrespective of diagnosis, the stage of the disease is based on the level of kidney function: Stage Description GFR(mL/min/1.73 m(2)) 1 Kidney damage with normal or decreased GFR 90 2 Kidney damage with mild decrease in GFR 60-89 3 Moderate decrease in GFR 30-59 4 Severe decrease in GFR 15-29 5 Kidney failure <15 (or dialysis) 36 Therapeutic concentration: <50 ug/mL Toxic concentration: >120 ug/mL 37 Presumptive Positive 38 The urine specimen was tested at the listed cutoffs: Drug class test level (ng/mL) Amphetamines 500 Barbituates 200 Benzodiazepine metabolites 200 Cocaine metabolites 150 Cannabinoids 50 Opiates 300 Pcp 25 This is a screening procedure. Positive results are not confirmed. Specimen was received without chain of custody. Results should be used for medical purposes only. 39 Because ethnic data is not always readily available, this report includes an eGFR for both -Americans and non- Americans. The National Kidney Disease Education Program (NKDEP) does not endorse the use of the MDRD equation for patients that are not between the ages of 18 and 70, are , have extremes of body size, muscle mass, or nutritional status, or are non- or non-. According to the National Kidney Foundation, irrespective of diagnosis, the stage of the disease is based on the level of kidney function: Stage Description GFR(mL/min/1.73 m(2)) 1 Kidney damage with normal or decreased GFR 90 2 Kidney damage with mild decrease in GFR 60-89 3 Moderate decrease in GFR 30-59 4 Severe decrease in GFR 15-29 5 Kidney failure <15 (or dialysis) 40 1URINE APTIMA,3SST 41 RESULTS VERIFIED BY REPEAT ANALYSIS 42 Index Value: Specimen reactivity relative to the negative cutoff. 43 [facility] [place] [address] [facility] [phone] 44 [facility] [place] [address] [facility] [phone] 45 Acceptable specimens for this test are male urethral swab, endocervical swab and liquid based pap specimens, vaginal swabs in APTIMA transports and first void urine. See online Directory of Services for test number for rectal and pharyngeal specimens. [facility] [address] [phone] 46 Because ethnic data is not always readily available, this report includes an eGFR for both -Americans and non- Americans. The National Kidney Disease Education Program (NKDEP) does not endorse the use of the MDRD equation for patients that are not between the ages of 18 and 70, are , have extremes of body size, muscle mass, or nutritional status, or are non- or non-. According to the National Kidney Foundation, irrespective of diagnosis, the stage of the disease is based on the level of kidney function: Stage Description GFR(mL/min/1.73 m(2)) 1 Kidney damage with normal or decreased GFR 90 2 Kidney damage with mild decrease in GFR 60-89 3 Moderate decrease in GFR 30-59 4 Severe decrease in GFR 15-29 5 Kidney failure <15 (or dialysis) 47 The urine specimen was tested at the listed cutoffs: Drug class test level (ng/ml) Amphetamines 300 Barbituates 200 Benzodiazepine metabolites 200 Cocaine metabolites 300 Cannabinoids 25 Opiates 200 Pcp 25 This is a screening procedure. Positive results are not confirmed. Specimen was received without chain of custody. Results should be used for medical purposes only. 48 CHILD 49 RESULT MAMI'D 50 RUN DATE: [facility] TIME: 842 Specimen Inquiry RUN USER: INTERFACE Name: KIRILL BARRERA Status: SUMIT CLI Re09/28/11 Age/Sex: 16/M Unit#: [id number] Location: : 94 SPEC #: [id number] MARIA C: 09/28/11 STATUS: RES REQ #: [id number] RECD: 09/29/11 [facility] DR: Enma OCHOA,[facility] SOURCE: THROAT ENTR: 09/29/[address]: Lenora OCHOA, Anastasia Serrano SPDESC: ORDERED: THROAT-BETA STR ACT WKST: BS 09/30/11 #1 Procedure Result Verified Site > THROAT-BETA STREP CULTURE Preliminary -0843 ML NEGATIVE FOR GROUP A BETA STREPTOCOCCUS - [facility] Permit #[id number] [address] [place] [address] DEPARTMENT OF PATHOLOGY, [address] [place] [address] [facility] Permit #[id number] Nabil Eller M.D. Director Cheikh Garcia M.D. [employer] 51 Negative <0.91 Equivocal 0.91 - 1.09 Positive >1.09 Note: The [facility] currently advises that Western blot testing be performed following all equivocal or positive EIA results. Final diagnosis should include appropriate clinical findings and a positive EIA which is also positive by Western blot. 52 Negative <0.91 Equivocal 0.91 - 1.09 Positive >1.09 . Note: IgM levels may peak at 3-6 weeks post infection, then gradually decline. FDA currently advises that Western Blot testing be performed following all equivocal or positive EIA results. Final diagnosis should include appropriate clinical findings and a positive EIA which is also positive by Western Blot. 53 CHILD 54 Negative <0.9 Equivocal 0.9 - 1.0 Positive >1.0 55 Negative <0.9 Equivocal 0.9 - 1.0 Positive >1.0 56 Negative <0.9 Equivocal 0.9 - 1.0 Positive >1.0 57 Negative <0.9 Equivocal 0.9 - 1.0 Positive >1.0 58 EBV Interpretation Chart . Interpretation VCA-IgM EA-IgG VCA-IgG NA-ABS . Susceptible - - - - Acute Infection + +or- +or- - Convalescent Phase +or- +or- + + Chronic or Reactivated - + + +or- Old Infection - - +or- + + Antibody Present - Antibody Absent 59 Anion gap measurement may be of limited value in the presence of any alkalosis, especially in a combined acid base disorder. . 60 Note change in reference range as of 06/21/08. The change was based on recommendations from the [place] [employer]. 61 Please note change in reference range effective 08 . 62 A metabolite of Naproxen, O-desmethylnaproxen, has been shown to interfere with the Jendrassik-Kb method for measuring total bilirubin. Samples from patients who have taken Naproxen have shown spurious elevation in total bilirubin levels. 63 The detection limit for VALPROIC ACID is 10.0 mcg/ml . Values less than 10.0 mcg/ml cannot be accurately measured. . 64 Anion gap measurement may be of limited value in the presence of any alkalosis, especially in a combined acid base disorder. . 65 Note change in reference range as of 06/21/08. The change was based on recommendations from the [employer]. 66 Please note change in reference range effective 08 . 67 A metabolite of Naproxen, O-desmethylnaproxen, has been shown to interfere with the Jendrassik-Kb method for measuring total bilirubin. Samples from patients who have taken Naproxen have shown spurious elevation in total bilirubin levels. 68 Neutropenia % Lymphocytosis % 69 THE URINE SPECIMEN WAS TESTED AT THE LISTED CUTOFFS: DRUG CLASS TEST LEVEL (NG/ML) AMPHETAMINES 300 BARBITUATES 200 BENZODIAZEPINE METABOLITES 200 COCAINE METABOLITES 300 CANNABINOIDS 25 OPIATES 200 PCP 25 THIS IS A SCREENING PROCEDURE. POSITIVE RESULTS ARE NOT CONFIRMED. SPECIMEN WAS RECEIVED WITHOUT CHAIN OF CUSTODY. RESULTS SHOULD BE USED FOR MEDICAL PURPOSES ONLY. . 70 Anion gap measurement may be of limited value in the presence of any alkalosis, especially in a combined acid base disorder. . 71 Note change in reference range as of 06/21/08. The change was based on recommendations from the [employer]. 72 Please note change in reference range effective 08 . 73 A metabolite of Naproxen, O-desmethylnaproxen, has been shown to interfere with the [place]- method for measuring total bilirubin. Samples from patients who have taken Naproxen have shown spurious elevation in total bilirubin levels. 74 FROZEN 1 POUR OFF TUBE WITH FROZEN PLASMA FROZEN 75 . 76 INTERNATIONAL NORMALIZED RATIO(INR) INDICATIONS INR RANGE PATIENTS NOT ON ANTICOAGULANT THERAPY * DEEP VENOUS THROMBOSIS 2.0-3.0 PULMONARY EMBOLISM 2.0-3.0 ATRIAL FIBRILLATION 2.0-3.0 PROPHYLAXIS: 2.0-3.0 HIGH-RISK SURGERY TISSUE HEART VALVES ATRIAL FIBRILLATION ACUTE MYOCARDIAL INFARCTION VALVULAR HEART DISEASE MECHANICAL PROSTHETIC VALVE 2.5-3.5 * USE OF INR VALUES SHOULD BE LIMITED TO PATIENTS WHO ARE ON STABLE ORAL ANTICOAGULANT THERAPY. AN INR ABOVE 5.0-5.5 APPEARS TO BE ASSOCIATED WITH AN UNACCEPTABLY HIGH RISK OF BLEEDING. 77 occassional echinocyte 78 Neutropenia % Lymphocytosis % 79 Anion gap measurement may be of limited value in the presence of any alkalosis, especially in a combined acid base disorder. . 80 Note change in reference range as of 06/21/08. The change was based on recommendations from the [employer]. 81 Please note change in reference range effective 08 . 82 -- REFERENCE VALUE -- 10-63 (Peak) 3-34 (Trough) Test Performed by: [facility] Dpt of Lab Med and Pathology [address] [place] [address] Drop Hammer Setter Up: Kip Carlos III, M.D. 83 Anion gap measurement may be of limited value in the presence of any alkalosis, especially in a combined acid base disorder. . 84 Note change in reference range as of 06/21/08. The change was based on recommendations from the [employer]. 85 Please note change in reference range effective 08 . 86 -- REFERENCE VALUE -- 10-63 (Peak) 3-34 (Trough) Test Performed by: [facility] Dpt of Lab Med and Pathology [address] [place] [address] Drop Hammer Setter Up: Kip Carlos III, M.D. 87 Anion gap measurement may be of limited value in the presence of any alkalosis, especially in a combined acid base disorder. . 88 Note change in reference range as of 06/21/08. The change was based on recommendations from the [employer]. 89 Please note change in reference range effective 08 . 90 Neutropenia % Lymphocytosis % 91 Interpretation: 10-24 (mild to moderate deficiency) -- REFERENCE VALUE -- 25-HYDROXY D TOTAL (D2+D3) Optimum levels in the normal population are 25-80 Test Performed by: [facility] Dpt of Lab Med and Pathology [address] [place] [address] Drop Hammer Setter Up: Kip Carlos III, M.D. 92 Anion gap measurement may be of limited value in the presence of any alkalosis, especially in a combined acid base disorder. . 93 Note change in reference range as of 06/21/08. The change was based on recommendations from the [employer]. 94 Please note change in reference range effective 08 . 95 Neutropenia % Lymphocytosis % 96 Anion gap measurement may be of limited value in the presence of any alkalosis, especially in a combined acid base disorder. . Procedures Date CPT Code Description Status 08/26/2016 09123 Finger Or Heel Stick Completed 08/10/2014 92782 Injection Subcutaneous Or Intramuscular Completed 10/04/2012 42399 Vision Test- screening test of visual acuity, Completed quantitative, bila 08/31/2011 12754 Vision Test- screening test of visual acuity, Completed quantitative, bila 08/31/2011 03894 Visual Field Exam Limited, Unilateral Or Bilateral Completed 11/17/2006 19221 Electrocardiogram Complete Completed Encounters Type Date Location Provider CPT E/M Dx Office Visit 11/26/2017 3:00p [facility] [place] Sam M.D. 62977 F33.1 G47.11 J30.9 L70.0 E55.9 D53.9 Office Visit 10/05/2017 1:40p [facility] Office [place] Sam M.D. 66088 G47.11 L70.0 F43.23 E87.6 Office Visit 07/06/2017 1:40p Main Office [place] Sam M.D. 72226 L70.0 K12.2 F43.23 J30.9 K64.8 Office Visit 06/02/2017 1:40p Main Office [place] Sam M.D. 20474 F43.23 J30.9 Office Visit 05/03/2017 3:20p Main Office [place] Sam M.D. 00800 F43.23 T14.91 Office Visit 04/14/2017 11:20a Main Office [place] Sam M.D. 46048 G40.89 F44.81 F43.23 Office Visit 03/01/2017 12:20p Main Office [place] Sam M.D. 68033 F33.1 G47.11 Office Visit 02/17/2017 2:40p Main Office [place] Sam M.D. 14025 G47.11 Office Visit 12/02/2016 3:00p Main Office [place] Sam M.D. 48045 F33.1 E55.9 F43.22 Office Visit 10/07/2016 3:40p Main Office [place] Sam M.D. 83988 F33.1 G47.11 Office Visit 09/14/2016 5:40p Main Office [place] Sam M.D. 96980 F33.1 E55.9 Office Visit 08/26/2016 1:40p Main Office [place] Sam M.D. 28144 R73.09 N32.9 G47.11 F33.1 Office Visit 08/05/2016 11:00a Main Office Georgia Sma M.D. 44100 F33.1 L70.0 Office Visit 07/27/2016 7:00p Main Office [place] Sam M.D. 56913 F33.1 L21.0 G47.11 Office Visit 06/26/2016 1:00p Main Office Shanell DARRON Zhong 41159 F33.1 G47.11 Office Visit 05/11/2016 12:20p Main Office [place] Sam M.D. 32978 G47.11 J30.89 Office Visit 02/03/2016 3:10p Main Office [place] Sam M.D. 90924 B00.0 F17.210 G47.11 Office Visit 11/04/2015 3:20p Main Office [place] Sam M.D. 14996 G47.11 F43.23 F17.210 R23.8 Office Visit 09/30/2015 4:20p Main Office [place] Sam M.D. 60915 G47.11 F43.23 F44.81 F17.210 Office Visit 08/23/2015 2:40p Main Office [place] Sam M.D. 83520 F44.81 F43.23 G47.11 G40.89 L30.8 Office Visit 04/10/2015 11:00a Main Office Izabel Gusman [facility] 34245 782.9 Office Visit 02/04/2015 6:00p Main Office [place] Sam M.D. 65627 311 268.9 789.09 Office Visit 01/14/2015 6:30p Main Office [place] Sam M.D. 71541 311 780.54 305.1 346.80 300.00 Office Visit 11/12/2014 6:00p Main Office [place] Sam M.D. 85793 311 780.54 706.1 300.00 692.9 268.9 V65.45 Office Visit 10/08/2014 6:30p Main Office [place] Sam M.D. 55354 311 780.54 Office Visit 08/27/2014 6:10p Main Office [place] Sam M.D. 93712 311 706.1 v04.81 Office Visit 08/10/2014 4:15p Main Office Izabel Gusman, [employer] 13298 300.00 Office Visit 07/24/2014 3:40p [facility] [place] Sam M.D. 39200 780.54 311 Office Visit 04/02/2014 7:50p Main Office [place] Sam M.D. 36705 706.1 692.9 995.3 Office Visit 06/20/2013 1:50p Main Office [place] Sam M.D. 26291 692.9 346.10 706.1 780.54 Office Visit 01/27/2013 4:30p [place] [address] 692.9 Office Visit 10/04/2012 5:30p Main Office Maddy Terra Winslow-C 28529 V20.2 465.8 V72.0 Office Visit 08/09/2012 11:00a Main Office [place] Sam M.D. 20428 462 706.1 719.47 Office Visit 04/14/2012 2:50p [facility] [place] Sam M.D. 68627 729.1 780.79 Office Visit 02/26/2012 11:00a Main Office ANTHONY CastroP 76363 461.8 Office Visit 01/27/2012 7:30p Main Office Naty Siddiqui M.D. 79161 346.10 388.9 Office Visit 12/31/2011 2:20p Main Office Anastasia Cooley M.D. 32350 346.10 995.3 Office Visit 12/10/2011 2:10p [facility] Edmond Zuñiga M.D. 89391 461.8 786.2 Office Visit 09/16/2011 8:00p Main Office Vargasdarron-Farzaneh 23228 786.2 690.11 V04.81 Office Visit 08/31/2011 3:10p Main Office Anastasia Cooley M.D. 99731 V72.0 706.1 300.00 V40.9 V20.2 690.11 780.93 Office Visit 08/28/2011 9:30a [facility] [place] Sam M.D. 86767 462 461.0 Office Visit 08/04/2011 9:00a Main Office Edmond Zuñiga M.D. 91190 461.8 465.9 Office Visit 07/27/2011 7:00p Main Office Anastasia Cooley M.D. 51358 706.1 V40.9 Office Visit 06/24/2011 2:30p [facility] Reyes Wharton M.D. 48439 780.79 296.99 Office Visit 03/04/2011 9:20a Main Office Alba Harris M.D. 61630 346.10 345.00 692.9 V40.9 Office Visit 12/19/2010 9:00a Main Office JOHN Castro 97181 465.9 Office Visit 11/11/2010 2:10p Main Office Edmond Zuñiga M.D. 21520 535.00 787.01 Office Visit 11/03/2010 2:40p Main Office Alba Harris M.D. 41433 307.46 782.1 706.1 Office Visit 08/14/2010 10:40a [facility] Alba von John, 25895 780.60 M.DSuzanne 465.9 Office Visit 07/25/2010 3:20p [facility] Alba von John, 21953 V20.2 M.D. 346.90 611.1 300.00 Office Visit 04/30/2010 1:20p Main Office Alba Harris M.D. 01812 346.90 611.1 608.89 300.11 Office Visit 03/03/2010 5:20p Main Office Alba Harris M.D. 17462 300.11 346.90 300.00 524.30 V72.83 Office Visit 01/02/2010 4:20p [facility] Alba Harris, 57936 461.8 M.D. Office Visit 12/17/2009 8:30p Main Office JOHN Castro 49515 465.8 Office Visit 11/27/2009 3:30p Main Office Alba Harris, 22149 V72.83 M.DSuzanne V70.0 300.11 346.90 Office Visit 08/12/2009 1:40p Main Office Alba Harris M.D. 30088 719.65 300.00 300.11 Office Visit 06/03/2009 8:30p Main Office JOHN Castro 37864 465.8 Office Visit 01/22/2009 11:00a Main Office Reyes Wharton M.D. 07928 611.9 Office Visit 01/09/2009 11:10a [facility] Reyes Wharton M.D. 53762 289.9 Office Visit 12/04/2008 9:10a Main Office Edmond Zuñiga M.D. 76380 465.8 386.19 345.90 Office Visit 11/24/2008 10:20a Main Office Edmond Zuñiga M.D. 76027 782.1 216.8 Office Visit 11/06/2008 11:20a Main Office Reyes Wharton M.D. 42126 465.8 Office Visit 10/02/2008 10:20a [facility] Alba Harris, 47249 345.90 M.DSuzanne Office Visit 09/25/2008 10:45a Main Office JOHN Castro 78252 461.9 Office Visit 08/10/2008 10:20a [facility] Reyes Wharton M.D. 86706 709.9 780.79 345.90 Office Visit 06/28/2008 8:00a Main Office Reyes Wharton M.D. 80632 V20.2 V70.0 493.90 477.9 257.9 Office Visit 06/26/2008 10:45a Main Office Jaylen Walters 80192 079.99 Office Visit 04/09/2008 8:30p Main Office JOHN Castro 48993 719.46 Office Visit 03/29/2008 2:20p Main Office Heriberto Brooks M.D. 63809 314.01 Office Visit 10/17/2007 8:20p Main Office Edmond Zuñiga M.D. 24451 465.9 461.8 995.3 346.90 493.90 Office Visit 09/05/2007 12:20p Main Office Edmond Zuñiga M.D. 28779 465.9 462 Office Visit 08/18/2007 11:10a Main Office Reyes Wharton M.D. 22690 465.9 Office Visit 08/03/2007 4:15p Main Office JOHN Castro 62757 719.47 Office Visit 07/20/2007 2:10p Main Office Reyes Wharton M.D. 23607 465.9 Office Visit 06/16/2007 2:30p Main Office Jaylen Walters 14263 V06.5 Office Visit 04/13/2007 11:00a Main Office Alba Harris M.D. 79664 346.90 995.3 Office Visit 02/12/2007 12:50p Main Office Edmond Zuñiga M.D. 39095 465.9 462 523.01 Office Visit 11/17/2006 6:40p Main Office Alba Harris M.D. 64120 786.51 V19.5 346.20 345.90 Plan of Care 02/08/2018 - [place] Sam M.D.G50.0 Trigeminal neuralgiaComments: unbearable pain.will be sending to the ER by ambulance. Will send in increased frequency hydrocodoneto 5 times a day.watch for constipation.use miralax nightly. will try to get you into the pain clinicand another appointment with neurology. Sending to the ER for evaluation and control of pain. spoke with Dr. Zepeda regarding patient's condition.G47.11 Idiopathic hypersomnia with long sleep timeF43.23 Adjustment disorder with mixed anxiety and depressed moodComments:continue meds with Dr. Baird.AllComments:~B_~U_Medication Management~b_~u_ Patient Understands medications he's taking? Yes No Are there Barriers to Adherence? Yes No $$$ unavailability of dental providers Has the patient beenasked about herbal supplements and therapies, and OTC meds? Yes No ~B_~U_Care Plan~b_~u_1. Patient has been queried about patient's goals/preferences and functional/lifestyle goals at relevant visits. If relevant, describe: na2. Treatment goals as explained to the patient: above3. Arethere barriers to meeting treatment goals? Yes No If Yes, please describe: $$$, hypersomnia - misses appointments,, lack of providers who provide dental care in this area for his dental problem. 4. Self- Management goals as described to the patient: Yes No Will send to the [facility].
[2018-02-08] MEDS ORDERED: Ibuprofen TAB* 600 MG PO ONE (18:28)
[2018-02-08] MEDS ORDERED: oxyCODONE/Acetamin 5/325 MG* TAB PO ONE (18:28)
[2018-02-08] MEDS ORDERED: carBAMazepine TAB(*) 200 MG PO ONE (19:28)
[2018-02-08] MEDS ORDERED: KETAMINE HCL* 50 MG/ML 10 ML VIAL IM ONE (19:30)
[2018-02-08] MEDS ORDERED: HYDROcodone/ACETAMIN 5-325 MG* 1 TAB PO ONE (21:01)
[2018-02-08 22:22] VITALS: BP 127/93
--- NOTE | 2018-02-10 10:55 | ED ---
Calixto Cobos Nilda, scribed for Jim Cook MD on 02/08/18 at 1937 . Psychiatric Complaint - HPI Summary HPI Summary: This patient is a 22 year old M presenting to [facility] with a chief complaint of constant severe chronic pain secondary to new Dx of trigeminal neuralgia for the past month. Pt states he is treated with 10 mg hydrocodone 5x per day and Tylenol, as prescribed by Dr. Georgia Sam. This has increased from original dosage of 7.5 mg hydrocodone 3x per day per pt. Pt states he took 2, 7.5 mg hydrocondone this morning because he ran out of medication. Pt states his pharmacy ([facility] [place]) should be refilling his script tomorrow. He reports SI secondary to pain. - History Of Current Complaint Chief Complaint: EDMentalHealth Time Seen by Provider: 02/08/18 17:59 Hx Obtained From: Patient, Medical Records Onset/Duration: Sudden Onset, Lasting Weeks, Still Present Timing: Constant Severity Currently: Severe Aggravating Factor(s): Recent Stress - trigeminal neuralgia Alleviating Factor(s): Medication Has Suicidal: Reports: Thoughts Recent Stressor(s): pain from trigeminal neuralgia Ingestion History: Type/Name Of Drug - hydrocodone - Allergies/Home Medications Allergies/Adverse Reactions: Allergies Allergy/AdvReac Type Severity Reaction Status Date / Time amoxicillin Allergy Unknown Verified 02/08/18 18:46 Reaction Details Penicillins Allergy Rash Verified 02/08/18 18:46 Home Medications: Home Medications BuPROPion XL* [Bupropion XL*] 300 mg PO DAILY 02/08/18 [History Confirmed ] DOXYcycline CAP(*) [DOXYcycline 100MG CAP(*)] 50 mg PO BID 02/08/18 [History Confirmed 02/08/18] Hydrocodone/Acetaminophen [Hydrocodone Bitartrate/AC] 1 tab PO BID PRN 02/08/18 [History Confirmed 02/08/18] Methylphenidate TAB* [Ritalin TAB*] 20 mg PO BID 02/08/18 [History Confirmed 08/18] Montelukast Sodium TAB* [Singulair TAB*] 10 mg PO DAILY 02/08/18 [History Confirmed 02/08/18] Ondansetron TAB* [Zofran 4 MG Tab*] 4 mg PO Q6H PRN 02/08/18 [History Confirmed 02/08/18] diPHENhydraMINE PO* [Benadryl PO 50 MG CAP*] 50 mg PO DAILY 02/08/18 [History Confirmed 02/08/18] PMH/Surg Hx/FS Hx/Imm Hx Endocrine/Hematology History: Denies: Hx Diabetes, Hx Thyroid Disease Cardiovascular History: Denies: Hx Hypertension, Hx Pacemaker/ICD Respiratory History: Reports: Hx Asthma, Hx Seasonal Allergies Denies: Hx Chronic Obstructive Pulmonary Disease (COPD) GI History: Denies: Hx Irritable Bowel, Hx Ulcer Sensory History: Reports: Hx Contacts or Glasses Denies: Hx Hearing Aid Opthamlomology History: Reports: Hx Contacts or Glasses Neurological History: Reports: Hx Headaches, Hx Migraine, Other Neuro Impairments/Disorders - HX seizures/pseudoseizures, HYPERSOMNIA; trigeminal neuralgia Psychiatric History: Reports: Hx Anxiety, Hx Depression, Hx Inpatient Treatment , Hx Community Mental Health Tx, Hx Suicide Attempt, Hx Substance Abuse, Other Psychiatric Issues/Disorders - IDIOPATHIC HYPERSOMNIA Denies: Hx Eating Disorder, Hx Panic Disorder, Hx of Violent Episodes Against Others - Surgical History Surgery Procedure, Year, and Place: TONSILLECTOMY, TESTICLE SURGERY, WISDOM TEETH - Immunization History Date of Tetanus Vaccine: unknown Date of Influenza Vaccine: Fall 2014 Infectious Disease History: No Infectious Disease History: Reports: Hx Shingles Denies: Hx Hepatitis, Hx Human Immunodeficiency Virus (HIV), History Other Infectious Disease, Traveled Outside the US in Last 30 Days - Family History Known Family History: Positive: Cardiac Disease - paternal - Social History Alcohol Use: Occasionally Alcohol Amount: 3-4 BEERS/WK Hx Substance Use: Yes Substance Use Type: Reports: Marijuana Substance Use Comment - Amount & Last Used: 2xweek Hx Tobacco Use: Yes Smoking Status (MU): Heavy Every Day Tobacco Smoker Type: Cigarettes Amount Used/How Often: 4-5 CIGARETTES/DAY Length of Time of Smoking/Using Tobacco: 2YRS Have You Smoked in the Last Year: Yes Review of Systems Negative: Fever, Chills Negative: Erythema Negative: Sore Throat Negative: Chest Pain Negative: Shortness Of Breath, Cough Negative: Abdominal Pain, Vomiting, Nausea Negative: dysuria, hematuria Negative: Myalgia, Edema Negative: Rash Neurological: Other - chronic pain secondary to trigeminal neuralgia; negative dizziness Psychological: Other - SI All Other Systems Reviewed And Are Negative: Yes Physical Exam - Summary Physical Exam Summary: Constitutional: Well-developed, Well-nourished, Alert. Tearful Skin: Warm, Dry HENT: Normocephalic; Atraumatic; no signs of oral infection. Eyes: Conjunctiva normal Neck: Musculoskeletal ROM normal neck. (-) JVD, (-) Stridor, (-) Tracheal deviation. No bony tenderness. Cardio: Rhythm regular, rate normal, Heart sounds normal; Intact distal pulses; The pedal pulses are 2+ and symmetric. Radial pulses are 2+ and symmetric. (-) Murmur Pulmonary/Chest wall: Effort normal. (-) Respiratory distress, (-) Wheezes, (-) Rales Abd: Soft, (-) Tenderness, (-) Distension, (-) Guarding, (-) Rebound Musculoskeletal: (-) Edema. no bony tenderness. Psych: Tearful Triage Information Reviewed: Yes Vital Signs On Initial Exam: Initial Vitals Temp Pulse Resp BP Pulse Ox 98.8 F 72 16 120/80 98 02/08/18 16:26 02/08/18 16:26 02/08/18 16:26 02/08/18 16:26 02/08/18 16:26 Vital Signs Reviewed: Yes Diagnostics - Vital Signs Vital Signs Temp Pulse Resp BP Pulse Ox 02/08/18 18:44 16 02/08/18 16:26 98.8 F 72 16 120/80 98 - Laboratory Lab Statement: Any lab studies that have been ordered have been reviewed, and results considered in the medical decision making process. Re-Evaluation - Re-Evaluation First Eval Re-Evaluation Time: 19:28 Comment: Pt states he last took Tegretol this morning. Pt is crying and states hes not suicidal anymore. Second Eval Re-Evaluation Time: 21:34 Comment: Reviewed D/C plan with pt. Pt still states no SI. Course/Dx - Course Assessment/Plan: This patient is a 22 year old M presenting to [facility] with a chief complaint of constant severe chronic pain secondary to new Dx of trigeminal neuralgia for the past month. Pt states he is treated with 10 mg hydrocodone 5x per day and Tylenol, as prescribed by Dr. Georgia Sam. This has increased from original dosage of 7.5 mg hydrocodone 3x per day per pt. Pt states he took 2, 7.5 mg hydrocondone this morning because he ran out of medication. Pt states his pharmacy ([facility] [place]) should be refilling his script tomorrow. He reports SI secondary to pain. [1850] Called Pharmacy and associate reported that pt was prescribed Hydrocodone PO 2x per day. [1955] Dr. Orourke (neuro) states that pt missed an appointment today at 1000 and didnt call for cancellation. He recommends increase in Tegretol by 200 mg in morning as well as giving pt 5 days worth of hydrocodone. Pt is stable and will be D/C with Dx narcotic abuse and trigeminal neuralgia, precriptions for tegretol and [place], and a f/u with Dr. Orourke tomorrow. Pt understands he will no longer receive narcotic prescriptions from the ER as also stated by Dr. Orourke. Pt understands and is agreeable with this plan. - Differential Dx/Clinical Impression Provider Diagnosis: Narcotic abuse, Trigeminal neuralgia - Physician Notifications Discussed Care Of Patient With: Althea Orourke - Neurology Time Discussed With Above Provider: 19:56 Instructed by Provider To: Other - states that pt missed an appointment today at 1000 and didnt call for cancellation. He recommends increase in Tegretol by 200 mg in morning as well as giving pt 5 days worth of hydrocodone. Discharge - Sign-Out/Discharge Documenting (check all that apply): Discharge - home - Discharge Plan Condition: Stable Disposition: HOME Prescriptions: carBAMazepine TAB(*) [TEGretol TAB(*)] 200 mg PO BID #21 tab HYDROcodone/ACETAMIN 5-325 MG* [[place] 5-325 TAB*] 1 tab PO Q6H PRN #20 tab MDD 4 PRN Reason: Pain Scale 6-10 Patient Education Materials: Trigeminal Neuralgia (ED), Narcotic Abuse (ED), Narcotic Pain Management (ED) Referrals: Althea Orourke MD [Medical Doctor] - 1 Day Additional Instructions: Follow up with Dr. Orourke tomorrow. RETURN TO THE EMERGENCY DEPARTMENT FOR CHANGING OR WORSENING SYMPTOMS. The documentation as recorded by the Calixto barlow Nilda accurately reflects the service I personally performed and the decisions made by , Jim Cook MD.
== END 2018-02-08 22:20 | disposition home or self-care (01) ==
LOC: ED 16:09
DX: G89.29 Other chronic pain (principal); G50.0 Trigeminal neuralgia; F17.210 Nicotine dependence, cigarettes, uncomplicated; F19.10 Other psychoactive substance abuse, uncomplicated
CPT/HCPCS: 96372; 99282; A9270-GY

== ENCOUNTER 2018-02-10 05:30 | Emergency (ER) | payer MEDICAID ==
[2018-02-10 05:36] VITALS: BP 125/73
[2018-02-10] MEDS ORDERED: Ketorolac INJ* 60 MG/2 ML VIAL IM ONE (05:54)
[2018-02-10] MEDS ORDERED: carBAMazepine TAB(*) 200 MG PO ONE (05:54)
--- NOTE | 2018-02-10 06:44 | ED ---
Calixto Cobos Nilda, scribed for Miguel Zhou MD on 02/10/18 at 0546 . Complex/Multi-Sys Presentation - HPI Summary HPI Summary: This patient is a 22 year old M presenting to [facility] with a chief complaint of constant moderate tooth pain and right facial pain for the past few weeks. The patient rates the pain 6/10 in severity. Symptoms aggravated and alleviated by nothing. Pt states he was Dx with trigeminal neuralgia last month but notes he never had formal evaluation and testing for this diagnosis. Pt was in ED 2 days ago with the same symptoms. Pt states he normally takes hydrocodone for his pain. He states he last took 4 hydrocodone given at ED last night. When asked if pt has Hx substance abuse, pt states he occasionally smokes marijuana. Pt notes that he is here because his insurance is taking too long to authorize his prescriptions for hydrocodone. - History Of Current Complaint Chief Complaint: EDDentalPain Time Seen by Provider: 02/10/18 05:44 Hx Obtained From: Patient Onset/Duration: Sudden Onset, Lasting Weeks, Still Present Timing: Constant Severity Currently: Moderate Location: Pain At: - dental pain and right side of face Aggravating Factor(s): nothing. Alleviating Factor(s): nothing. - Allergies/Home Medications Allergies/Adverse Reactions: Allergies Allergy/AdvReac Type Severity Reaction Status Date / Time amoxicillin Allergy Unknown Verified 02/10/18 05:36 Reaction Details Penicillins Allergy Rash Verified 02/10/18 05:36 PMH/Surg Hx/FS Hx/Imm Hx Endocrine/Hematology History: Denies: Hx Diabetes, Hx Thyroid Disease Cardiovascular History: Denies: Hx Hypertension, Hx Pacemaker/ICD Respiratory History: Reports: Hx Asthma, Hx Seasonal Allergies Denies: Hx Chronic Obstructive Pulmonary Disease (COPD) GI History: Denies: Hx Irritable Bowel, Hx Ulcer Sensory History: Reports: Hx Contacts or Glasses Denies: Hx Hearing Aid Opthamlomology History: Reports: Hx Contacts or Glasses Neurological History: Reports: Hx Headaches, Hx Migraine, Other Neuro Impairments/Disorders - HX seizures/pseudoseizures, HYPERSOMNIA Psychiatric History: Reports: Hx Anxiety, Hx Depression, Hx Inpatient Treatment , Hx Community Mental Health Tx, Hx Suicide Attempt, Hx Substance Abuse, Other Psychiatric Issues/Disorders - IDIOPATHIC HYPERSOMNIA Denies: Hx Eating Disorder, Hx Panic Disorder, Hx of Violent Episodes Against Others - Surgical History Surgery Procedure, Year, and Place: TONSILLECTOMY, TESTICLE SURGERY, WISDOM TEETH - Immunization History Date of Tetanus Vaccine: unknown Date of Influenza Vaccine: Fall 2014 Infectious Disease History: No Infectious Disease History: Reports: Hx Shingles Denies: Hx Hepatitis, Hx Human Immunodeficiency Virus (HIV), History Other Infectious Disease, Traveled Outside the [place] in Last 30 Days - Family History Known Family History: Positive: Cardiac Disease - paternal - Social History Alcohol Use: Occasionally Alcohol Amount: 3-4 BEERS/WK Hx Substance Use: Yes Substance Use Type: Reports: Marijuana Substance Use Comment - Amount & Last Used: 2xweek Hx Tobacco Use: Yes Smoking Status (MU): Heavy Every Day Tobacco Smoker Type: Cigarettes Amount Used/How Often: 4-5 CIGARETTES/DAY Length of Time of Smoking/Using Tobacco: 2YRS Have You Smoked in the Last Year: Yes Review of Systems Negative: Fever Positive: Dental Pain Neurological: Other - right facial pain All Other Systems Reviewed And Are Negative: Yes Physical Exam - Summary Physical Exam Summary: VITAL SIGNS: Reviewed. GENERAL: Patient is a well-developed and nourished male who is lying comfortable in the stretcher. Patient is not in any acute respiratory distress. HEAD AND FACE: No signs of trauma. No ecchymosis, hematomas or skull depressions. No sinus tenderness. No parathesia on right side of the face. EYES: PERRLA, EOMI x 2, No injected conjunctiva, no nystagmus. EARS: Hearing grossly intact. Ear canals and tympanic membranes are within normal limits. MOUTH: Oropharynx within normal limits except for missing teeth. No acute findings. NECK: Supple, trachea is midline, no adenopathy, no JVD, no carotid bruit, no c- spine tenderness, neck with full ROM. CHEST: Symmetric, no tenderness at palpation LUNGS: Clear to auscultation bilaterally. No wheezing or crackles. CVS: Regular rate and rhythm, S1 and S2 present, no murmurs or gallops appreciated. ABDOMEN: Soft, non-tender. No signs of distention. No rebound no guarding, and no masses palpated. Bowel sounds are normal. EXTREMITIES: FROM in all major joints, no edema, no cyanosis or clubbing. NEURO: Alert and oriented x 3. No acute neurological deficits. Speech is normal and follows commands. SKIN: Dry and warm Triage Information Reviewed: Yes Vital Signs On Initial Exam: Initial Vitals Temp Pulse Resp BP Pulse Ox 98.1 F 108 18 125/73 100 02/10/18 05:34 02/10/18 05:34 02/10/18 05:34 02/10/18 05:34 02/10/18 05:34 Vital Signs Reviewed: Yes Diagnostics - Vital Signs Vital Signs Temp Pulse Resp BP Pulse Ox 02/10/18 05:34 98.1 F 108 18 125/73 100 - Laboratory Lab Statement: Any lab studies that have been ordered have been reviewed, and results considered in the medical decision making process. Complex Multi-Symp Course/Dx Assessment/Plan: Pt exam is not consistent with trigeminal neuralgia. He did not have parathesisa when running q-tip on R-cheek. Pt states no neuro studies done to show trigeminal neuralgia. Pt missed appointments with neurologist twice. He was at ED 2 days ago, seen by Dr. Cook, who told pt that he would not get narcotics from ED anymore. Pt was told that he has highly suspicious drug seeking behavior. Pt offered Toradol and Tegratol for pain. Pt agrees to take these medications. Pt will be D/C home. Pt claiming tooth pain. Pt has missing teeth but no inflammatory signs indicating acute problem. - Diagnoses Provider Diagnoses: Facial pain, Drug-seeking behavior Discharge - Sign-Out/Discharge Documenting (check all that apply): Discharge - home - Discharge Plan Condition: Stable Disposition: HOME Patient Education Materials: Atypical Facial Pain (ED) Referrals: [place] Sam MD [Primary Care Provider] - 2 Days Additional Instructions: RETURN TO THE EMERGENCY DEPARTMENT FOR CHANGING OR WORSENING SYMPTOMS. The documentation as recorded by the Calixto barlow Nilda accurately reflects the service I personally performed and the decisions made by me, Miguel Zhou MD.
== END 2018-02-10 06:22 | disposition home or self-care (01) ==
LOC: ED 05:30
DX: R51 Headache (principal); Z76.5 Malingerer [conscious simulation]; J45.909 Unspecified asthma, uncomplicated; F32.9 Major depressive disorder, single episode, unspecified; F41.9 Anxiety disorder, unspecified; Z88.0 Allergy status to penicillin
CPT/HCPCS: 96372; 99281; A9270-GY; J1885

== ENCOUNTER 2022-04-07 03:17 | Inpatient (IN) ==
[2022-04-07] MEDS ORDERED: Lactated Ringers 1000 ml BAG 1,000 ML IV ONE (03:29)
[2022-04-07 04:05] LABS: ABS Eosinophils 0.1 10^3/ul (0-0.6); ABS Lymphocytes 2.8 10^3/ul (1.0-4.8); ABS Monocytes 0.7 10^3/ul (0-0.8); Eosinophil % 1.3 %; Hematocrit 41 % (42-52); Hemoglobin 13.4 g/dL (14.0-18.0); Lymphocyte % 42.4 %; Mean Corpuscular HGB Conc 33 g/dL (31-36); Mean Corpuscular Hemoglobin 29 pg (27-31); Mean Corpuscular Volume 88 fL (80-94); Mean Platelet Volume 7.3 fL (7.4-10.4); Platelet Count 365 10^3/uL (150-450); Red Cell Distribution Width 14 % (10-15); Venous Bicarbonate HCO3 26.8 mmol/L (24-28); White Blood Count 6.6 10^3/uL (3.5-10.8)
[2022-04-07] MEDS ORDERED: Charcoal ACTIVATED 25 GM/120 ML BTL PO ONE (04:16)
[2022-04-07 04:30] LABS: High Sens Troponin Baseline 3 pg/mL (<20)
[2022-04-07 04:40] LABS: ALT 15 U/L (7-52); AST 19 U/L (13-39); Acetaminophen < 15 mcg/mL; Albumin 4.3 g/dL (3.2-5.2); Albumin/Globulin Ratio 1.9 (1-3); Alcohol, S 161 mg/dL (<13); Alkaline Phosphatase 82 U/L (35-149); Anion Gap 7 mmol/L (2-11); Blood Urea Nitrogen 7 mg/dL (6-24); CO2 Carbon Dioxide 27 mmol/L (22-32); Calcium 8.7 mg/dL (8.6-10.3); Chloride 108 mmol/L (101-111); Creatine Kinase 186 U/L (10-223); Globulin 2.3 g/dL (2-4); Glucose 101 mg/dL (70-100); Potassium 3.9 mmol/L (3.5-5.0); Salicylate < 2.50 mg/dL (<30); Sodium 142 mmol/L (135-145); Total Protein 6.6 g/dL (6.4-8.9); eGFR CKD-EPI 124.4 (>60)
[2022-04-07 05:30] LABS: Urine Appearance Clear; Urine Bilirubin Negative (Negative); Urine Blood Negative (Negative); Urine Color Yellow; Urine Glucose Negative (Negative); Urine Ketones Negative (Negative); Urine Nitrite Negative (Negative); Urine Protein Negative (Negative); Urine Specific Gravity 1.008 (1.002-1.030); Urine Urobilinogen Negative (Negative)
[2022-04-07 05:52] LABS: Urine Benzodiazepine Screen None Detected (None Detect); Urine Cannabinoids Screen Presumptive Positive (None Detect); Urine Opiates Screen None Detected (None Detect)
[2022-04-07 05:53] LABS: High Sensitivity Troponin 1 Hr 3 pg/mL (<20)
[2022-04-07] MEDS ORDERED: Ondansetron 4 mg VIAL 2 MG/ML 2 ml VIAL IV PRN (09:17)
[2022-04-07] MEDS ORDERED: Albuterol HFA INHALER 8 gm MDI INH PRN (09:19)
[2022-04-07] MEDS: Fluticasone NASAL SPRAY 50MCG 16 gm SPRAY BTL INTRANASAL SCH ×2 (13:21→21:05)
[2022-04-07] MEDS: Amphetamine MIXED SALT 10mgTAB PO SCH ×2 (13:21→21:06)
[2022-04-07] MEDS: MINOCYCLINE 50 MG PO SCH (21:07)
[2022-04-07] MEDS: AZELASTINE INTRANASAL SCH (21:07)
[2022-04-08 05:23] LABS: ABS Eosinophils 0.2 10^3/ul (0-0.6); ABS Lymphocytes 2.4 10^3/ul (1.0-4.8); ABS Monocytes 0.6 10^3/ul (0-0.8); ABS Neutrophils 3.4 10^3/ul (1.5-7.7); Eosinophil % 2.5 %; Hematocrit 42 % (42-52); Lymphocyte % 36.4 %; Mean Corpuscular HGB Conc 33 g/dL (31-36); Mean Corpuscular Hemoglobin 30 pg (27-31); Mean Corpuscular Volume 90 fL (80-94); Mean Platelet Volume 7.9 fL (7.4-10.4); Platelet Count 350 10^3/uL (150-450); Red Blood Count 4.66 10^6 /uL (4.18-5.48); Red Cell Distribution Width 14 % (10-15); White Blood Count 6.6 10^3/uL (3.5-10.8)
[2022-04-08 05:40] LABS: Albumin 4.1 g/dL (3.2-5.2); Albumin/Globulin Ratio 1.5 (1-3); Calcium 9.4 mg/dL (8.6-10.3); Globulin 2.7 g/dL (2-4); Total Bilirubin 0.9 mg/dL (0.2-1.0); Total Protein 6.8 g/dL (6.4-8.9); eGFR CKD-EPI 120.5 (>60)
[2022-04-08] MEDS: AZELASTINE INTRANASAL SCH ×2 (09:56→20:17)
[2022-04-08] MEDS: MINOCYCLINE 50 MG PO SCH ×2 (09:56→20:17)
[2022-04-08] MEDS: Amphetamine MIXED SALT 10mgTAB PO SCH ×3 (09:57→20:17)
[2022-04-08] MEDS: Fluticasone NASAL SPRAY 50MCG 16 gm SPRAY BTL INTRANASAL SCH ×2 (09:58→20:17)
[2022-04-08] MEDS ORDERED: Al Hydrox/Mg Hydrox/Simet LIQ 30 ML UDC PO PRN (11:20)
[2022-04-08] MEDS: Nicotine GUM 2MG FRUIT FLAVOR PO PRN (20:19)
[2022-04-09] MEDS: AZELASTINE INTRANASAL SCH ×2 (08:59→21:08)
[2022-04-09] MEDS: MINOCYCLINE 50 MG PO SCH ×2 (09:00→21:08)
[2022-04-09] MEDS: Fluticasone NASAL SPRAY 50MCG 16 gm SPRAY BTL INTRANASAL SCH ×2 (09:06→21:06)
[2022-04-09] MEDS: Amphetamine MIXED SALT 10mgTAB PO SCH ×3 (09:08→15:42)
[2022-04-09] MEDS: Nicotine GUM 2MG FRUIT FLAVOR PO PRN (17:22)
[2022-04-10] MEDS: Amphetamine MIXED SALT 10mgTAB PO SCH ×2 (07:37→12:09)
[2022-04-10] MEDS: AZELASTINE INTRANASAL SCH (07:38)
[2022-04-10] MEDS: Fluticasone NASAL SPRAY 50MCG 16 gm SPRAY BTL INTRANASAL SCH (07:38)
[2022-04-10] MEDS: MINOCYCLINE 50 MG PO SCH (07:38)
[2022-04-10 07:55] VITALS: BP 122/82
[2022-04-10] MEDS: Nicotine GUM 2MG FRUIT FLAVOR PO PRN (12:09)
[2022-04-10] MEDS ORDERED: COVID-19 VACCINE, TRIS(PFIZER)/PF 30 MCG/0.3 ML IM ONE (13:00)
[2022-04-10] MEDS ORDERED: Flu vaccine *QUAD* 2021-22* 0.5 ML SYRINGE IM ONE (13:00)
== END 2022-04-10 14:00 | disposition home or self-care (01) | DRG 754 ==
LOC: ED 03:17 → EDHOLD 03:17 → SUATTDRO 09:12 → MEDTELE 11:33
PROVIDERS: ADMIT Internal Medicine; ATTEND Psychiatry & Neurology Psychiatry